=== PATIENT | male | born 1990 | race Caucasian/White ===

== ENCOUNTER 2023-02-09 21:24 | Outpatient (OUT) | payer OTHER, SELFPAY | END 2023-02-09 23:00 | disposition home or self-care (01) | LOC: SLEEP 21:24 | PROVIDERS: PCP Internal Medicine; Visit Provider Internal Medicine | DX: G47.33 Obstructive sleep apnea (adult) (pediatric) (principal); G47.11 Idiopathic hypersomnia with long sleep time ==

== ENCOUNTER 2023-03-16 21:19 | Outpatient (OUT) | payer OTHER, SELFPAY | END 2023-03-16 21:20 | disposition home or self-care (01) | LOC: SLEEP 21:19 | PROVIDERS: PCP Internal Medicine; Visit Provider Internal Medicine | DX: G47.33 Obstructive sleep apnea (adult) (pediatric) (principal); G47.11 Idiopathic hypersomnia with long sleep time | CPT/HCPCS: 95810 ==

== ENCOUNTER 2023-04-20 21:25 | Outpatient (OUT) | payer OTHER, SELFPAY | END 2023-04-20 21:26 | disposition home or self-care (01) | LOC: SLEEP 21:25 | PROVIDERS: PCP Internal Medicine; Visit Provider Internal Medicine | DX: G47.33 Obstructive sleep apnea (adult) (pediatric) (principal); G47.11 Idiopathic hypersomnia with long sleep time | CPT/HCPCS: 95811 ==

== ENCOUNTER 2024-02-24 11:17 | Outpatient (OUT) | payer OTHER, SELFPAY ==
--- OUTSIDE RECORDS SUMMARY | 2024-02-24 11:40 | XMS_ITS | CCD ---
Author Organization [facility] Inform ion Partnership [facility] Care Team Providers Care Bacteriologist Dairy Name Role Phone Slick Parker Unavailable Unavailable Slick Parker Unavailable Unavailable Slick Parker Unavailable Unavailable House, Salvatore Unavailable Unavailable Melany Parkers A Unavailable Unavailable Melany Parkers A Unavailable Unavailable Slick Parker A Unavailable Unavailable HouseSalvatore Unavailable Unavailable House Sr., Salvatore Abad Primary Care Provider [place] Sr., Salvatore Abad Primary Care Provider ANAHI CHAPMAN Admitting Unavailable ANAHI CHAPMAN Attending Unavailable DEFRANCE, DR ASHLEY Primary Care Unavailable ANAHI CHAPMAN Consulting Unavailable JOYCE ., DR RUELAS Admitting Unavailable JOYCE ., DR RUELAS Attending Unavailable MISC, DR BUTLER Primary Care Unavailable HELGA ., MR CARLSON Consulting Unavailable Wagner MOTOR EQUIPMENT CAPTAIN-Rosa THOMAS Primary Care Provide r DANIEL ALEJANDRO Attending Unavailable DANIEL ALEJANDRO Referring Unavailable House Sr., Salvatore BURCH Primary Care Provider ROSA EDWARD Attending Unavailable ROSA EDWARD Referring Unavailable ROSA EDWARD Primary Care Unavailable ROSA EDWARD Attending Unavailable ROSA EDWARD Referring Unavailable ROSA EDWARD Primary Care Unavailable TORY TORREZ Attending Unavailable Medications Current Medications Medication Drug Class(es) Dates Sig (Normalized) Sig (Original) [id number] 200 actuat albuterol 0.09 mg/actuat metered dose inhaler (2 sources) beta2-Adrenergic Agonist Start: 08-20-2022 take 2 puff(s) by inhalation every six hours as needed for wheezing albuterol (PROVENTIL HFA;VENTOLIN HFA) 90 mcg/actuation inhaler Indications: Dyspnea on exertion Inhale 2 puffs every 6 (six) hours as needed for wheezing. 18 g 11 08/20/2022 Active Start: 07-16-2021 take 3 mL by inhalat ion every six hours as needed for wheezing albuterol (PROVENTIL,VENTOLIN) 2.5 mg /3 mL (0.083 %) nebulizer solution Indications: Mild intermittent asthma without complication Inhale 3 mL (2.5 mg total) by nebulization every 6 (six) hours as needed for wheezing. 75 mL 12 07/16/2021 Active allopurinol 100 mg oral tablet (1 source) Xanthine Oxidase Inhibitor Start: 03-23-2023 take 2 tablets by mouth once daily in the morning allopurinoL (ZYLOPRIM) 100 mg tablet take 2 tablets by mouth every morning 180 tablet 1 03/23/2023 Active amLODIPine 10 mg oral tablet (5 sources) Dihydropyridine Calcium Channel Rosibel Start: 04-07-2023 take 1 tablet by mouth in the morning amLODIPine (NORVASC) 10 mg tablet Take 1 tablet (10 mg total) by mouth in the morning. 90 tablet 1 04/07/2023 Active Comment on above: Take 10 mg by mouth once daily. bisacodyl 5 mg delayed release oral tablet (4 sources) Stimulant Laxative Start: 09-16-2021 End: 09-16-2021 Bisacodyl (DULCOLAX) 5 mg tab Use as directed for Miralax / Gatorade Bowel Prep Kit 4 tablet 0 09/16/2021 09/16/2021 Discontinued Start: 08-06-2021 End: 09-13-2021 Bisacodyl (DULCOLAX) 5 mg ta b Use as directed for Miralax / Gatorade Bowel Prep Kit 4 tablet 0 08/06/2021 09/13/2021 Discontinued Comment on above: Use as directed for Miralax / Gatorade Bowel Prep Kit 60 actuat budesonide 0.16 mg/actuat / formoterol fumarate 0.0045 mg/actuat metered dose inhaler (1 source) Corticosteroid, beta2-Adrenergic Agonist Start: 08-06-19 take 2 puff(s) by mouth twice daily SYMBICORT 160-4.5 mcg/actuation inhaler Indications: Dyspnea on exertion , Mild intermittent asthma without complication inhale 2 puffs by mouth twice a day 10.2 g 6 08/05/2022 Active clonazePAM 0.5 mg oral tablet (1 source) Benzodiazepine clonazePAM (KlonoPIN) 0.5 mg tablet Oral for 15 Days 0 Active dicyclomine hydrochloride 20 mg oral tablet (3 sources) Anticholinergic Start: 01-29-20 22 take 1 tablet by mouth twice daily dicyclomine (BENTYL) 20 mg tablet Take 1 tablet by mouth twice daily. 200 tablet 5 01/28/2022 Active Start: 09-19-2021 End: 01-26-2022 take 1 tablet by mouth twice daily dicyclomine (BENTYL) 20 mg tablet Take 1 tablet by mouth twice daily. 200 tablet 5 09/19/2021 01/26/2022 Discontinued Comment on above: Take 1 tablet by amber th twice daily. hydrOXYzine pamoate 25 mg oral capsule (1 source) Antihistamine Start: 06-12-19 23 take 1 capsule by mouth three times daily as needed hydrOXYzine (VISTARIL) 25 mg capsule Take 1 capsule (25 mg total) by mouth 3 (three) times a day as needed. 0 06/12/2022 Active inhalational spacing device (AEROCHAMBER MV) spacer (1 source) Start: 08-16-19 inhalational spacing device (AEROCHAMBER MV) spacer Use with inhaler 1 each 0 2020 Active lithium carbonate 300 mg oral capsule (1 source) take 1 capsule by mouth twice daily lithium carbonate 300 mg capsule take 1 capsule by mouth twice a day 0 Active losartan potassium 50 mg oral tablet (5 sources) Angiotensin 2 Receptor Rosibel Start: 04-13-20 23 take 1 tablet by mouth once daily in the morning losartan (COZAAR) 50 mg tablet take 1 tablet by mouth every morning 90 tablet 1 04/13/2023 Active Comment on above: Take 50 mg by mouth once daily. methotrexate 2.5 mg oral tablet (1 source) Folate Analog Metabolic Inhibitor take 4 tablets by mouth every week methotrexate 2.5 mg chemo tablet take 4 tablets by mouth every week EXACTLY DIRECTED. FOLLOW DIRECTIONS CAREFULLY 0 Active nystatin 100 unt/mg topical powder (1 source) Polyene Antifungal Start: 06-12-19 nystatin (MYCOSTATIN) powder Apply 1 Application topically in the morning and 1 Application before bedtime. 15 g 1 06/12/2023 Active OLANZapine 10 mg oral tablet (1 source) Atypical Antipsychotic take 1 tablet by mouth at bedtime OLANZapine (ZyPREXA) 10 mg tablet take 1 tablet by mouth at bedtime 0 Active omeprazole 40 mg delayed release oral capsule (6 sources) Proton Pump Inhibitor Start: 11-20-19 End: 08-21-19 24 take 1 capsule by mouth once daily in the morning omeprazole (PriLOSEC) 40 mg capsule Indications: Mild intermittent asthma without complication take 1 capsule by mouth every morning 30 capsule 0 08/21/2023 Active Comment on above: Take 40 mg by mouth once daily. OXcarbazepine 300 mg oral tablet (1 source) Anti-epileptic Agent Start: 02-02-20 take 1 tablet by mouth in the morning, then take 1 tablet by mouth at bedtime OXcarbazepine (TRILEPTAL) 300 mg tablet Take 1 tablet (300 mg total) by mouth in the morning and 1 tablet (300 mg total) before bedtime. 0 02/01/2022 Active polyethylene glycol 3350 37200 mg powder for oral solution (4 sources) Osmotic Laxative Start: 09-17-19 End: 09-17-19 polyethylene glycol 3350 (MIRALAX, GLYCOLAX) 17 gram/dose powder Use as directed for Miralax / Gatorade Bowel Prep Kit 238 g 0 09/16/2021 09/16/2021 Discontinued Start: 08-06-2021 End: 09-13-2021 polyethylene glycol 3350 (AL RALAX, GLYCOLAX) 17 gram/dose powder Use as directed for Miralax / Gatorade Bowel Prep Kit 238 g 0 08/06/2021 09/13/2021 Discontinued Comment on above: Use as directed for Miralax / Gatorade Bowel Prep Kit 60 actuat tiotropium 0.37601 mg/actuat inhalation spray (1 source) Anticholinergic Start: 023 take 1.25 ug by inhalation once daily tiotropium bromide (SPIRIVA RESPIMAT) 1.25 mcg/actuation mist 2 puffs Inhalation Once a day 0 01/22/2023 Active traZODone hydrochloride 50 mg oral tablet (1 source) Serotonin Reuptake Inhibitor Start: 022 take 1 tablet by mouth once daily traZODone (DESYREL) 50 mg tablet Take 1 tablet (50 mg total) by mouth nightly. 0 02/01/2022 Active ziprasidone 40 mg oral capsule (1 source) Atypical Antipsychotic Start: 023 take 1 capsule by mouth in the morning, then take 1 capsule by mouth at mealtime ziprasidone (GEODON) 40 mg capsule Take 1 capsule (40 mg total) by mouth in the morning and 1 capsule (40 mg total) in the evening. Take with meals. 0 06/13/2022 Active Completed/Discontinued Medications Medication Drug Class(es) Dates Sig (Normalized) Sig (Original) Gatorade Sports Drink (3 sources) Start: 08-06-2021 End: 09-16-2021 Gatorade Sports Drink Use as directed for Miralax / Gatorade Bowel Prep Kit 0 08/06/2021 09/16/2021 Discontinued Start: 08-06-2021 Gatorade Sport s Drink Use as directed for Miralax / Gatorade Bowel Prep Kit 0 08/06/2021 Active Comment on above: Use as directed for Miralax / Gatorade Bowel Prep Kit Problems Active Problems Problem Classification Problem Date Documented Date Episodic/Chronic Administrative/social admission (1 source) Patient encounter status; Translations: [Other specified counseling] Episodic Asthma (2 sources) Mild intermittent asthma; Translations: [Mild intermittent asthma, uncomplicated] Onset: 02-16-2023 08-21-2023 Chronic Essential hypertension (2 sources) Essential (primary) hypertension; Translations: [Essential hypertension] Onset: 09-02-2022 02-16-2023 Chronic Gout and other crystal arthropathies (1 source) Gout, unspecified; Translations: [GOUT UNSPECIFIED] Onset: 09-02-2022 Chronic Mood disorders (1 source) Mixed bipolar affective disorder, moderate; Translations: [Bipolar disorder, current episode mixed, moderate] Onset: 07-30-2022 02-16-2023 Chronic Noninfectious gastroenteritis (2 sources) Idiopathic colitis; Translations: [Noninfective gastroenteritis and colitis, unspecified] Episodic Other aftercare (1 source) Other fpc (current) drug therapy; Translations: [OTH FIELD MECHANICAL 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 TESTER CURRENT DRUG THERAPY] Onset: 09-02-2022 Episodic Other connective tissue disease (3 sources) Pain in left toe(s); Translations: [PAIN IN LEFT TOES] Onset: 09-01-2022 Episodic Other lower respiratory disease (1 source) Snoring; Translations: [Snoring] Episodic Other lower respiratory disease (1 source) Cough Onset: 01-19-2024 Episodic Other non-traumatic joint disorders (4 sources) Pain in right ankle and joints of right foot; Translations: [PAIN IN RIGHT ANKLE] Onset: 05-15-2022 Episodic Other non-traumatic joint disorders (1 source) Ankle pain Onset: 01-19-2024 Episodic Other nutritional; endocrine; and metabolic disorders (1 source) Morbid obesity; Translations: [Morbid (severe) obesity due to excess calories] Chronic Other nutritional; endocrine; and metabolic disorders (2 sources) Body mass index 40+ - severely obese; Translations: [Morbid (severe) obesity due to excess calories] Onset: 02-16-2023 Chronic Other upper respiratory infections (1 source) Acute maxillary sinusitis, unspecified; Translations: [Acute maxillary sinusitis, unspecified] Onset: 01-19-2024 Episodic Residual codes; unclassified (1 source) At risk of apnea; Translations: [Other specified personal risk factors, not elsewhere classified] Episodic Rheumatoid arthritis and related disease (3 sources) Rheumatoid arthritis of multiple joints; Translations: [Rheumatoid arthritis with rheumatoid factor of multiple sites without organ or systems involvement] Onset: 08-04-2022 02-16-2023 Chronic Substance-related disorders (1 source) Nicotine dependence, cigarettes, uncomplicated; Translations: [NICOTINE DEPEND CIGARETTES UNCOMP] Onset: 06-17-2022 Chronic Unclassified (1 source) Rash Onset: 06-12-2023 Past or Other Problems Problem Classification Problem Date Documented Da te Episodic/Chronic Diabetes mellitus without complication (1 source) Impaired fasting glucose; Translations: [Impaired fasting glucose] Onset: 06-12-2023 Episodic Mood disorders (1 source) Mood disorders Onset: 2022 2022 Mycoses (1 source) Other sites of candidiasis; Translations: [Other sites of candidiasis] Onset: 06-12-2023 Episodic Unclassified (1 source) Onset: 06-12-2023 06-12-2023 Results Test Name Value Interpretation Reference Range Facility 36 2024 36 Left message informi ng patient to call office and schedule a follow up appointment. [facility] [id number] 36 LVM for patient to c all back and reschedule [facility] 09-10-2023 36 It's okay to resched ulnola, he forgot to get labs completed and then went to a [facility] location without a hard copy of lab orders. I have mailed the lab orders to the patient to have completed. [facility] 36 Patient has no showe d three out of seven appointments since being established. No showed 10/13/22 w/Ding, 06/30/23 w/Ding, and 09/10/23 w/Aya. Okay to R/S or dismissed? [facility] Follow-Upon 03-30-2023 Follow-Up [id number] Cody Goodson 1990 M Date Provider Department Center 03/30/2023 TORY [facility] No family history on file Level of Service:35749 IA OFFICE/OUTPATIENT ESTABLISHED MOD MDM 30-39 MIN Reason for Visit and Comments: Follow-up [173983] [facility] 03-23-2023 36 LM asking patient to call and schedule 3-4 month follow up appointment. [facility] ANES POSTPROC EVALon 022 ANES POSTPROC EVAL HNO ID: [id number] Author: Jose Gillespie MD Service: Anesthesiology Author Type: Anesthesiologist Type: Anesthesia Postprocedure Evaluation Filed: 09/16/2021 10:50 AM Note Text: POST ANESTHESIA EVALUATION NOTE : 1990 Procedure Summary Date: 09/16/21 Room / Location: [facility] Anesthesia Start: 1010 Anesthesia Stop: 1035 Procedure: COLONOSCOPY SCREENING Diagnosis: Idiopathic colitis (Chronic diarrhea) Scheduled Providers: Adolfo Matias MD Responsible Provider: Jose Gillespie MD Anesthesia Type: MAC ASA Status: 4 Anesthesia Type: MAC Last Vitals Vitals Value Taken Time BP 133/76 09/16/21 1045 Temp 36.7 ?C (98.1 ?F) 09/16/21 1035 Pulse 99 09/16/21 1035 Resp 22 09/16/21 1035 SpO2 96 % 09/16/21 1049 Vitals shown include unvalidated device data. [facility] AN POST OP NOTE Anesthesia Observations No Documentation SIGNATURE: Jose Gillespie MD PATIENT NAME: Cody Goodson DATE: September 16, 2021 TIME: 10:50 AM CSN: [id number] Normal [facility] ANES PRE-OPon 09-16-2021 ANES PRE-OP HNO ID: [id number] Author: Jose Gillespie MD Service: Anesthesiology Author Type: Anesthesiologist Type: Anesthesia Preprocedure Evaluation Filed: 09/16/2021 9:02 AM Note Text: ANESTHESIOLOGY DAY OF SURGERY NOTE : 1990 Procedure Information Date/Time: 09/16/21 1000 Scheduled providers: Adolfo Matias MD Procedure: COLONOSCOPY SCREENING Location: [facility] Estimated body mass index is 53.56 kg/m? as calculated from the following: Height as of this encounter: 193 cm (6' 4 ). Weight as of this encounter: 199.6 kg (440 lb). Most recent hematocrit and potassium results: No results found for this basename: HCT,HEMATOCRIT,K,POTASSIUM Relevant Problems No relevant active problems I - PHYSICAL EVALUATION AIRWAY Patient intubated: No. Tracheostomy tube not present Mallampati: IV. TM distance: >3 FB. Neck ROM: limited flexion and extension. Mouth opening: adequate. Short neck: yes. Thick neck: yes DENTAL Dental findings: teeth intact. Additional exam findings: no II - ANESTHESIA PLAN ASA Score: 4 Anesthetic Plan: MAC The patient is not a current smoker. NPO Status: adequate Beta Rosibel Administration of chronic beta rosibel medication planned. Monitoring plan: standard ASA. Postoperative analgesic plan: per surgical service. Informed Consent Anesthetic risks, benefits, alternatives, personnel and consent discussed: yes. Patient / Responsible Alliance Party agrees to proceed: yes Patient / Surrogate agrees to blood products: Yes DNR status not reviewed with patient and/or family prior to surgery. Significant changes in the patient condition since the History and Physical, not otherwise documented in primary service progress note: no. Potential Anesthesia issues that may suggest increased risk of complications or contraindication to planned procedure: none. Vitals Value Taken Time BP 130/75 09/16/21 08 Pulse 88 09/16/21 0852 Resp 20 09/16/21 08 Temp 37.1 ?C (98.8 ?F) 09/16/21 08 SpO2 97 % 09/16/21 08 Outpatient Medications as of 09/16/2021 Medication Sig - losartan (COZAAR) 50 mg tablet Take 50 mg by mouth once daily. - amLODIPine (NORVASC) 10 mg tablet Take 10 mg by mouth once daily. - omeprazole (PRILOSEC) 40 mg capsule Take 40 mg by mouth once daily. - polyethylene glycol 3350 (MIRALAX, GLYCOLAX) 17 gram/dose powder Use as directed for Miralax / Gatorade Bowel Prep Kit - Bisacodyl (DULCOLAX) 5 mg tab Use as directed for Miralax / Gatorade Bowel Prep Kit - Gatorade Sports Drink Use as directed for Miralax / Gatorade Bowel Prep Kit No current facility-administered medications on file as of 09/16/2021. I have interviewed and examined the patient. I have reviewed the medical record and/or the pre-anesthesia evaluation, pertinent labs, and test results. This contains updated information obtained within 48 hours of Surgery/Procedure. SIGNATURE: Jose Gillespie MD PATIENT NAME: Cody Goodson DATE: September 16, 2021 TIME: 9:01 AM CSN: [id number] Normal [facility] COLONOSCOPY SCREENINGon 08-24 [facility] HISTORY PHYSICALon HISTORY PHYSICAL HNO ID: [id number] Author: Adolfo Matias MD Service: Gastroenterology Author Type: Physician Type: HANDP Filed: 09/16/2021 10:06 AM Note Text: COMPREHENSIVE DAY OF SURGERY SURGICAL SERVICES HANDP SERVICE DATE: 09/16/2021 SERVICE TIME: 10:01 AM PRIMARY CARE PHYSICIAN: Salvatore Reveles Sr, MD Subjective CHIEF COMPLAINT: Chronic diarrhea HISTORY OF PRESENT ILLNESS: Mr. Goodson is a 31 year old male who presents for colonoscopy. No prior history of colonoscopy Paternal Uncle w/ Crohn's disease Chronic diarrhea X 6 months Loose stools w/o blood No weight loss Nocturnal awakening for bowel movements No NSAIDs use PAST MEDICAL HISTORY Diagnosis Date - COVID-19 05/2020 - HTN (hypertension) - Morbid obesity (HCC) PAST SURGICAL HISTORY Procedure Laterality Date - CYST EXCISION left heel FAMILY HISTORY Problem Relation Age of Onset - Crohn's Disease Paternal Uncle - Colon Cancer No Family History - Colon Polyps No Family History - Celiac Disease No Family History - Ulcerative Colitis No Family History Social History Tobacco Use - Smoking status: Never Smoker - Smokeless tobacco: Current User Types: Snuff Vaping Use - Vaping Use: Not on file Substance Use Topics - Alcohol use: Not Currently - Drug use: Yes Types: Marijuana Comment: occassional use (Not in a hospital admission) No current facility-administered medications for this encounter. ALLERGIES Not on File REVIEW OF SYSTEMS: RESPIRATORY: COPD; not oxygen requiring CARDIOVASCULAR: Negative for chest pain, leg swelling, CHF or palpitations GENERAL: No weight loss, malaise or fevers GI: See HPI Objective PHYSICAL EXAM: BP 130/75 Pulse 88 Temp (Src) 98.8 (Temporal) Resp 20 Ht 6' 4 (1.93m) Wt 440 lb (199.6kg) SpO2 97% BMI 53.58 kg/(m2). O2 Therapy: Room Air Physical Exam Performed LUNGS: Lungs clear to auscultation, Good diaphragmatic excursion CARDIAC: distant heart sounds GENERAL: Alert, no distress, cooperative, Morbidly Obese SKIN: multiple tattoos EYES: glasses ABDOMEN: Abdomen soft, non-tender, BS normal, No masses or organomegaly NEURO: alert and oriented X 3 DATA: Diagnostic tests reviewed for today's visit: Most recent labs Assessment/Plan 1. Chronic diarrhea w/o alarm features 2. FHx Crohns disease (paternal uncle) 3. History of COVID 4. Morbid obesity Colonoscopy with biopsies Discussed with patient/patient field representatives director the indications, alternatives, benefits and risks of procedure. Some of the possible risks include bleeding, infection, drug reaction, perforation, missed lesions, cardiopulmonary arrest or even , were also reviewed with patient/patient field representatives director. SIGNATURE: Adolfo Matias MD PATIENT NAME: Cody Goodson DATE: September 16, 2021 TIME: 10:01 AM [facility] SURGICAL PATHOLOGYon 09-16-2 022 CASE REPORT [facility] Comment on above: Order Comment: Specimen Type: TISSUE SPE CIMEN Ordering Facility: [facility] Address: [address] [place] [address] Result Comment: Surg ica Pathology Report Case: [id number] Authorizing Provider: Adolfo Matias MD Collected: 09/16/2021 10:21 AM Ordering Location: [facility] Received: 09/16/2021 11:58 AM Surgical Services Pathologist: Farrah Serrano MD Specimen: COLON BIOPSY, Random Performed By: #### S #### [facility] CLIA [id number] [address] [place] [address] FINAL DIAGNOSIS Normal [facility] Comment on above: Order Comment: Specimen Type: TISSUE SPE CIMEN Ordering Facility: [facility] Address: [address] [place] [address] Result Comment: Addi herman, perfecto, biopsy: - Colonic mucosa with patchy mild hyperplastic epithelial changes. Performed By: #### S #### [facility] CLIA [id number] [address] [place] [address] FINAL PERFORMING LAB Normal [facility] Comment on above: Order Comment: Specimen Type: TISSUE SPE CIMEN Ordering Facility: [facility] Address: [address] [place] [address] Result Comment: Diag nostic interpretation performed at [facility], [address] [place] [address] CLIA# [id number] Recruiting Assistant: Richie Duran M.D. Performed By: #### S #### [facility] CLIA [id number] [address] [place] [address] GROSS DESCRIPTION Normal [facility] Comment on above: Order Comment: Specimen Type: TISSUE SPE CIMEN Ordering Facility: [facility] Address: [address] [place] [address] Result Comment: Stephane. Lexie KLINEGISSELLE BIOPSY. Received in formalin are multiple pieces of jacinto, soft tissue aggregating to 2.0 x 0.6 x 0.2 cm. Totally submitted in two cassettes. CL September 16, 2021 3:18 PM Gross examination performed at [facility], [address] [place], [place] [address]e., [place] [address] Performed By: #### S #### [facility] CLIA [id number] [address] [facility] [address] [id number] [id number] [facility] CODY GOODSON ([id number]) 1990 M Date Time Provider Department 09/13/21 CARMELO HERNÁNDEZ [facility] During your visit today, we recorded the following information about you: HARIKA Hernandez 09/13/2021 2:07 PM Signed Which Attempt: X 2nd Call Status: Completed X Left Voice Message Surgery Location: [place] Arrival Time:0845 Note: Left detailed message on voice mail. Allergies As of Date: 09/13/2021 (Not on File) Date Reviewed: Never Reviewed Reason for Visit: Appointment [186] Prescriptions as of 09/13/2021 - polyethylene glycol 3350 (MIRALAX, GLYCOLAX) 17 gram/dose powder Use as directed for Miralax / Gatorade Bowel Prep Kit - Gatorade Sports Drink Use as directed for Miralax / Gatorade Bowel Prep Kit - Bisacodyl (DULCOLAX) 5 mg tab Use as directed for Miralax / Gatorade Bowel Prep Kit Problem List As Of Date: 09/13/2021 (None) Encounter Status:Closed by CARMELO HERNÁNDEZ on 09/13/21 [facility] 08-07-2021 [facility] SBCODY ([id number]) 1990 M Date Time Provider Department 08/07/21 MANUEL RODRÍGUEZ [facility] During your visit today, we recorded the following information about you: Berenice Xu [place] [facility] 08/07/2021 12:02 PM Signed Left message on vm letting pt know its cancelled and to call us back Brenna Oates Ma 08/09/2021 10:00 AM Signed Cody called yesterday at 4:44 pm and left a voicemail message requesting a call back. I called Cody back and left a message on his voicemail for him to return my call. Brenna Oates Ma 08/09/2021 10:10 AM Addendum I spoke with Cody, rescheduled his colonoscopy to 09/16/[address] [place] [address] Matias. Brenna Oates Ma Allergies As of Date: 08/07/2021 (Not on File) Date Reviewed: Never Reviewed Reason for Visit: anesthesia review [Other] Prescriptions as of 08/09/2021 - polyethylene glycol 3350 (MIRALAX, GLYCOLAX) 17 gram/dose powder Use as directed for Miralax / Gatorade Bowel Prep Kit - Gatorade Sports Drink Use as directed for Miralax / Gatorade Bowel Prep Kit - Bisacodyl (DULCOLAX) 5 mg tab Use as directed for Miralax / Gatorade Bowel Prep Kit Problem List As Of Date: 08/07/2021 (None) Letter Text Encounter Status:Closed by MANUEL RODRÍGUEZ on 08/07/21 Normal [facility] Coding Summary.on 05-13-2017 Coding Summary. CODING DATE: 017 FINAL [facility] STATUS: Home (Routine DC) PAYOR: Commercial Insurance APC DESCRIPTION 5073 Level 3 Excision/ Biopsy/ Incision and Drainage ADMIT DX: REASON FOR VISIT DX: M79.89 Other specified soft tissue disorders FINAL DX: PRINCIPAL: D17.24 Benign lipomatous neoplasm of skin and subcutaneous tissue of left leg SECONDARY: I10 Essential (primary) hypertension F17.220 Nicotine dependence, chewing tobacco, uncomplicated PYMT PROC APC STAT DESCRIPTION DOCTOR NAME DATE [id number] J1 Excision, tumor, soft Slick Parker DPM 05/06/2017 tissue of foot or toe, subfascial (eg, intramuscular); 1.5 cm or greater LT Left side (used to identify procedures performed on the left side of the body) 43800 Anesthesia for Slick Parker DPM 05/06/2017 procedures on nerves, muscles, tendons, and fascia of lower leg, ankle, and foot; not otherwise specified NOTE: The code number assigned matches the documented diagnosis and / or procedure in the patient's chart. However, the narrative phrase printed from the coding software may appear abbreviated, or result in slightly different terminology. Coded By: Valeria Ramirez Date Saved: 05/13/2017 02:15 pm [facility] XR Ankle 2 Views Lefton 04-24 XR Ankle 2 Views Left Exam Date/Time:05/06/2017 12:27 ESTReason for Exam:Post OpReportIMPRESSION: ESSENTIALLY NEGATIVE EXAM. X-RAY: RIGHT ANKLE, VIEWSCLINICAL HISTORY: post op in [facility] - excision of tumor/fibroma to posterior medialachillesCOMPARISONS: None available.FINDINGS: No fracture, dislocation or osseous destruction is seen. The anklemortise is well maintained. The soft tissues are unremarkable. No evidence foreignbody. FINAL REPORT Dictated: 05/08/2017 4:51 pm Holley Garcia MD Signed (Electronic Signature): 05/08/2017 4:51 pm Signed by: Holley Garcia MD Transcribed by: CHLOE Technologist: FAUSTINA [facility] Main OR Intraoperative Recor don 05-07-2017 Main OR Intraoperative Record IntraOp Document Type FT Summary Primary Physician: Slick Parker DPM Finalized Date/Time: 05/07/17 10:09:19 Pt. Name: CODY GOODSON/Sex: 1990 Male Med Rec #: [id number] Physician: Slick Parker DPM Financial #: [id number] Pt. Type: A Room/Bed: AS/ Admit/Disch: 05/06/17 06:52:00 - 05/06/17 13:15:00 Institution: Case Times FT Entry 1 Patient Times In Room 05/06/17 09:23:00 Out Room 05/06/17 11:19:00 Procedure Times Start 05/06/17 09:46:00 Stop 05/06/17 11:04:00 Anesthesia Times Start 05/06/17 09:23:00 Stop 05/06/17 11:19:00 Last Modified By: Thalia Queen CST 05/06/17 11:23:16 General Comments: 05/07/2017 Chart opened to review and send charges Grzegorz client experience administrator Case Attendance FT Entry 1 Entry 2 Entry 3 Case Attendee Keith PENNINGTON, Lindsay Parker DPM, Slick Matos FORMATION TESTING OPERATOR/SABecky Role Performed Anesthesiologist Surgeon - Primary FORMATION TESTING OPERATOR/SA [employer] Time In 05/06/17 09:23:00 05/06/17 09:25:00 05/06/17 09:23:00 Time Out 05/06/17 11:19:00 05/06/17 11:19:00 05/06/17 11:19:00 Procedure FOOT EXCISION OF SOFT FOOT EXCISION OF SOFT FOOT EXCISION OF SOFT TISSUE MASS(Left) TISSUE MASS(Left) TISSUE MASS(Left) Comments DR AGUERO SUPERVISING - out of room from [id number] dr gerson bernabe Last Modified By: Chrissy RN, Gerardo Lowe RN, Gerardo Cortés RN 05/06/17 11:23:19 05/06/17 11:23:19 05/06/17 11:23:19 Entry 4 Entry 5 Entry 6 Case Attendee Chrissy AVILES, Gerardo Zamora RN, Ella Pace CST Role Performed Occupational Therapy Department Chair - Primary Occupational Therapy Department Chair - Primary Scrub - Primary Time In 05/06/17 09:23:00 05/06/17 09:23:00 05/06/17 09:23:00 Time Out 05/06/17 11:19:00 05/06/17 11:19:00 05/06/17 11:19:00 Procedure FOOT EXCISION OF SOFT FOOT EXCISION OF SOFT FOOT EXCISION OF SOFT TISSUE MASS(Left) TISSUE MASS(Left) TISSUE MASS(Left) Comments out of room from [id number] Last Modified By: Chrissy AVILES, Gerardo Lowe RN, Gerardo Lowe RN, Gerardo Recio 05/06/17 11:23:19 05/06/17 11:23:19 05/06/17 11:23:19 Entry 7 Case Attendee Jose RN, CNOR, CRNFA, ONC, Sheryl Role Performed Occupational Therapy Department Chair - Relief Time In 05/06/17 09:23:00 Time Out 05/06/17 10:13:00 Procedure FOOT EXCISION OF SOFT TISSUE MASS(Left) Comments Last Modified By: Chrissy AVILES, Gerardo Recio 05/06/17 11:23:19 Perioperative Protocols FT Pre-Care Text: Implements protective measures prior to operative or invasive procedure, confirms identity before the operative or invasive procedure, verifies operative procedure, surgical site, and laterality Entry 1 Procedure(s) FOOT EXCISION OF SOFT Patient Identity Birthday, ID Band TISSUE MASS(Left) Verified (select at Check, Patient least 2): Participation Consents / H and P Anesthesia Consent, Operative Site Present Verified HandP, Surgery/Procedure Marking Verified Consent Surgical Site Yes Laterality Verified Yes Verified Procedure Verified Yes Correct Patient Yes Position Verified Availability Equipment, Medication Prep Dry Yes Verified (If Applicable) PreOp Antibiotic Yes Time Out Lindsay Lee C, Given Participants Slick Parker DPM, Sharp FORMATION TESTING OPERATOR/SA, Chrissy Pena RN, Noah Krishnamurthy RN, Edison Frost CST, Ella Time Out Complete 05/06/17 09:40:00 Outcomes Met? Yes Last Modified By: Emily Zamora RN 05/06/17 09:42:57 Post-Care Text: The patient is free from signs and symptoms of injury caused by extraneous objects Allergy Information FT Pre-Care Text: Verifies allergies Entry 1 Allergies Reviewed? Yes Allergies Reviewed Self/Patient With Outcomes Met? Yes Last Modified By: Emily Zamora RN 05/06/17 09:45:55 Post-Care Text: The patient received appropriate medication(s) safely administered during the perioperative period Surgical Procedures FT Entry 1 Procedure Description Procedure FOOT EXCISION OF SOFT Modifiers Left TISSUE MASS Surgeon Description EXCISION OF TUMOR SOFT TISSUE OF LEFT FOOT WITH FROZEN SECTION Primary Procedure Yes Primary Surgeon Slick Parker DPM Start 05/06/17 09:46:00 Stop 05/06/17 11:04:00 Anesthesia Type General Surgical Service Podiatry Wound Class 1 - Clean Last Modified By: Gerardo Lowe RN 05/06/17 11:23:22 General Case Data FT Pre-Care Text: Classifies surgical wound, implements aseptic technique, initiates traffic control Entry 1 Case Information OR OR 4 FT Case Level Level 4 Wound Class 1 - Clean Specialty Podiatry ASA Class 2 Preop Diagnosis SOFT TISSUE MASS LEFT Postop Same As Preop Yes ACHILLES Postop Diagnosis SOFT TISSUE MASS LEFT Outcomes Met? Yes ACHILLES Last Modified By: Emily Zamora RN 05/06/17 09:46:30 Post-Care Text: The patient is free from signs and symptoms of infection Skin Assessment (Pre Procedure) FT Pre-Care Text: Implements protective measures to prevent skin/ tissue injury due to thermal or mechanical sources Evaluates for signs and symptoms of physical injury to skin and tissue Entry 1 Skin Integrity Other/See Comments Skin Abnormality Yes Abnormality Location multiple small scabs on Outcomes Met? Yes bilateral lower extremities Last Modified By: Emily Zamora RN 05/06/17 09:47:00 Post-Care Text: The patient is free from signs and symptoms of injury caused by extraneous objects Patient Positioning FT Pre-Care Text: Identifies physical alterations that require additional precautions for procedure-specific positioning, verifies presence of prosthetics or corrective devices, positions the patient, evaluates the patient for signs and symptoms of injury as a result of positioning Entry 1 Procedure FOOT EXCISION OF SOFT Body Position Supine TISSUE MASS(Left) Feet Uncrossed? Yes Left Arm Position Extended on Padded Arm Board Right Arm Position Extended on Padded Arm Left Leg Position Extended Board Right Leg Position Extended Positioning Device Safety Strap, Pillow Under Head Large Press Points Checked Yes By Gerardo Lowe RN, Lindsay Lee, Emily Zamora RN Outcomes Met? Yes Last Modified By: Emily Zamora RN 05/06/17 09:47:16 Post-Care Text: The patient is free from signs and symptoms of injury related to positioning Patient Care Devices FT Pre-Care Text: Implements protective measures to prevent skin/ tissue injury due to thermal or mechanical sources Entry 1 Entry 2 Entry 3 Equipment Type CAUTERY UNIT[F] MISTRAL FORCED AIR MONITOR CHARGE SURGERY WARMING SYSTEM UNIT[F] [F] Equipment Number BOOM ROOM 4 M5 Equipment Setting Outcomes Met? Yes Yes Yes Last Modified By: Emily Zamora RN, RN, Emily A Coy RN, Emily A 05/06/17 08:19:27 05/06/17 08:19:27 05/06/17 08:19:27 Entry 4 Equipment Type TOURNIQUET MIKE [F] Equipment Number D Equipment Setting Outcomes Met? Yes Last Modified By: Emily Zamora RN 05/06/17 08:19:27 Post-Care Text: The patient is free from signs and symptoms of injury caused by extraneous objects Transport To OR FT Pre-Care Text: Transports according to individual needs. Evaluates for signs and symptoms of skin and tissue injury as a result of transfer or transport Entry 1 Via Cart By Emily Zamora RN Safety Precautions Side Rails Up Outcomes Met? Yes Last Modified By: Emily Zamora RN 05/06/17 09:47:23 Post-Care Text: The patient is free from signs and symptoms of injury related to transfer/transport Cautery FT Pre-Care Text: Implements protective measures to prevent injury due to electrical sources, and evaluates for signs and symptoms of electrical injury Entry 1 ESU Identification Equipment Number boom room 4 ESU Settings Cut 25 Coag 25 ESU Grounding Pad Site Right Thigh Hair Removal Pad No Site Pre Pad Site Clear and Intact Post Pad Site Clear and Intact Condition Condition Grounding Pad Emily Zamora RN Placed By Outcomes Met? Yes Last Modified By: Emily Zamora RN 05/06/17 09:47:39 Post-Care Text: The patient if free from signs and symptoms of electrical injury Counts Verification FT Pre-Care Text: Performs required counts Entry 1 Entry 2 Procedure(s) FOOT EXCISION OF SOFT FOOT EXCISION OF SOFT TISSUE MASS(Left) TISSUE MASS(Left) Type Initial Final Items Sponges, Sharps Sponges, Sharps Status Correct Correct Time By Emily Zamora RN, George Coy RN, Emily A, George CST, Stephanie CST, Stephanie Outcomes Met? Yes Yes Last Modified By: Emily Zamora RN, RN, Emily A 05/06/17 10:40:49 05/06/17 10:40:49 Post-Care Text: The patient is free from signs and symptoms of injury caused by extraneous objects Skin Prep FT Pre-Care Text: Performs skin preparations Entry 1 Procedure FOOT EXCISION OF SOFT Prep Area left entire foot and TISSUE MASS(Left) leg to mid calf Prep Agents Chloraprep/Dry Prior to Draping Hair Removal Methods Not Indicated By Emily Zamora RN Outcomes Met? Yes Last Modified By: Emily Zamora RN 05/06/17 09:50:26 Post-Care Text: The patient is free from signs and symptoms of infection Departure From OR FT Pre-Care Text: Transports according to individual needs. Evaluates for signs and symptoms of skin and tissue injury as a result of transfer or transport. Entry 1 Via Cart Safety Precautions Side Rails Up PostOp Destination PACU Transported By Gerardo Lowe RN Patient Status Stable Skin. Condition Intact, [place], Warm, and Description unchanged from Dry, Other/See Comments previously Airway Maintenance Oxygen in Use? Yes Airway Device Simple Mask Flow Rate 8 L/min Outcomes Met? Yes Last Modified By: Emily Zamora RN 05/06/17 09:51:01 Post-Care Text: The patient is free from signs and symptoms of injury related to transfer/transport General Comments: report given to furniture finisherrn. Clint wasserman rn Dressing/Packing FT Pre-Care Text: Administers care to wound sites Entry 1 Type Dressing Site and Details xeroform, 4x4`s, cast padding, 4x30 splint and 4 inch fermin to left ankle Outcomes Met? Yes Last Modified By: Emily Zamora RN 05/06/17 10:45:45 Post-Care Text: The patient is free from signs and symptoms of infection Medication Administration FT Pre-Care Text: Verifies allergies, administers prescribed medications and solutions, administers prescribed antibiotic therapy and immunizing agents as ordered, evaluates response to medications Administers prescribed medications and solutions Entry 1 Outcomes Met? Yes Last Modified By: Emily Zamora RN 05/06/17 09:51:07 Post-Care Text: The patient received appropriate medication(s) safely administered during the perioperative period For Vega-Cache please see scanned medication reconcilliation form for medications used at the field during the procedure. Tourniquet FT Pre-Care Text: Implements protective measures to prevent skin/tissue injury due to mechanical sources Entry 1 Tourniquet Type TOURNIQUET CUFF [employer] Setting 350 mmHg BLUE 44 X 4 [[id number]][F] Equipment Number D Placement Left Upper Thigh Cuff Size 44 Padding Under Cuff Yes Applied Applied By Carlo SENIOR/Becky JONES Skin Assessment Unremarkable Before Inflation Skin Assessment Unremarkable After Inflation Tourniquet Times Inflated 05/06/17 09:44:00 Deflated 05/06/17 10:59:00 Total Time 75 minute(s) Outcomes Met? Yes Last Modified By: Emily Zamora RN 05/06/17 11:08:08 Post-Care Text: The patient is free from signs and symptoms of injury caused by extraneous objects Cultures and Specimens FT Pre-Care Text: Manages specimen handling and disposition Manages culture specimen collection Entry 1 Cultures Ordered No Specimens Ordered Yes Specimen Disposition Designated OR Area Frozen Section Times FS Pathology 05/06/17 09:56:00 FS Results Received 05/06/17 10:26:00 Notified Outcomes Met? Yes Last Modified By: Emily Zamora RN 05/06/17 10:27:14 Post-Care Text: The patient is free from signs and symptoms of injury caused by extraneous objects The patient is free from signs and symptoms of infection General Comments: specimen: soft tissue mass left achilles (frozen) and fibroma left schilles. Clint moore called from frozen lab with results and talked directly to dr. flor parker. Clint wasserman rn Temperature Control Entry 1 Temperature Control BLANKET MISTRAL AIR Quantity 1 Aid TORSO [[id number]][F] Fluid/Moseley Unit Mistral warming system Setting high/43 Body Site Upper anterior torso Last Modified By: Emily Zamora RN 05/06/17 09:51:29 Case Comments Finalized By: Thalia Queen CST Document Signatures Signed By: Gerardo Lowe RN 05/06/17 11:23 Thalia Queen CST 05/07/17 10:09 Normal [facility] Progress Note-Physicianon Progress Note-Physician Patient: CODY GOODSON Age: 26 years Sex: Male : 1990 Associated Diagnoses: None Author: Julio Aguero MD Preoperative Information Anesthesia history: Patient History: No personal or Family history of problems with anesthesia. Re-eval prior to induction: Inital eval reviewed: No significant interval change. Review of Systems Constitutional: Negative. Cardiovascular: Cardiovascular risk stratafacation reviewed, 1 FOS without difficulty, No chest pain. Respiratory: No SOB. Hematology/Lymphatics: Negative. Gastrointestinal: Negative. Musculoskeletal: Negative. Neurologic: Negative. Health Status Allergies: Allergic Reactions (Selected)No Known Allergies Current medications: (Selected) Inpatient MedicationsOrderedCefazolin 3 gram IVPB: 3 gram = 3 EA, IV Piggyback, PREOP, Routine, Start date 05/06/17 7:00:00 EST, 200 mL/hr, Infuse over 30 minute(s)Lactated Ringers IV Kristi 1000 mL 1,000 mL: 1,000 mL, IV, 150 mL/hr, Routine, Start date 05/06/17 7:00:00 EST, 6.7 hour(s), Total volume (mL): 1,000Norco 5/325 Tab: 1 tab(s), Tab, Oral, q4hr PRN Pain - Moderate for 5 day(s), Stop date 05/11/17 7:57:00 EST, Routine, Start date 05/06/17 7:58:00 ESTDocumented MedicationsDocumentedlisinopril 20 mg Tab: 20 mg = 1 tab(s), Oral, Dailynaproxen 250 mg oral tablet: 750 mg = 3 tab(s), Oral, q6hr, PRN as needed for pain, Pain Problem list: All ProblemsHypertension / SNOMED CT 8985948712 / ConfirmedSoft tissue mass / SNOMED CT 5926399816 / Confirmedleft achillesAsthma / SNOMED CT 991630715 / Confirmed Histories Past Medical History: No active or resolved past medical history items have been selected or recorded. Procedure history: No active procedure history items have been selected or recorded. Social History Social & Psychosocial BdiuyoNxrirhw76/06/2017 Type: Oral Comment: Patient chews tobacco every day. - 04/29/2017 09:03 - Thalia Mcdonald RN. Physical Examination Pain assessment: Self-reports no pain. Airway: Mallampati classification: II (soft palate, fauces, uvula visible). Distance: Adequate. Mouth: Adequate opening. Neck: Full range of motion. Respiratory: Respirations are non-labored. Cardiovascular: Regular rhythm. Neurologic: Alert, Oriented. Review / Management Results review: All Results 04/29/2017 08:51 EST WBC 6.5 E9/L RBC 5.3 E12/L Hgb 15.3 gm/dL Hct 45.1 % MCV 85.7 fL MCH 29.0 pg MCHC 33.9 gm/dL RDW 14.6 % HI Platelet 175.0 E9/L MPV 10.1 fL , No qualifying data available. Chest x-ray results mikayla For ExamPre OpPOWERSCRIBE REPORTIMPRESSION: NO ACTIVE PULMONARY DISEASE.COMMENT: PA and lateral views of the chest show a normal-sized heart andunremarkable bronchovascular markings. There are no pneumonic infiltrates or pleuraleffusion. The mediastinum and the bony structures are unremarkable.Signature Line FINAL REPORT Dictated: 04/29/2017 10:01 am Vinod Floyd M.D.Signed (Electronic Signature): 04/29/2017 10:06 amSigned by: Vinod Floyd M.D.Transcribed by: pedro Technologist: KAREN REPORTThis document has an imageResult type: XR Chest 2 ViewsResult date: April 29, 2017 09:40 ESTResult status: Auth (Verified)Result title: XR Chest 2 ViewsPerformed by: Vinod Floyd M.D. on April 29, 2017 10:01 ESTVerified by: Vinod Floyd M.D. on April 29, 2017 10:06 [facility] info: [id number], [facility], Outpatient, 04/29/2017 - 04/29/2017 ECG interpretation: SINUS RHYTHM. Plan [place] [employer] Anesthesiologists (ASA) physical status classification: Class II. Anesthetic Preoperative Plan Anesthesia: General. . Anesthetic plan, risks, benefits, and alternatives discussed with the patient and/or family. Patient verbalized understanding. Pt agrees with anesthetic plan and accepts all risks including but not limited to; Bleeding, infection, nerve injury, dental injury, eye injury, headache, low blood pressure, serious problems with the heart and lungs, allergic reactions, and .. Normal [facility] Comment on above: Result Comment: Electronically Signed By : Gerson GERBER, Julio\.br\Date and Time Signed: 05/07/17 15:35 EST Inpatient Patient Summaryon 05-06-2017 Thy[facility] stimulating [facility]SH[facility] InstructionsPERSON INFORMATION Name: CODY GOODSON [facility]#:[id number] PHYSICIANS Admitting Physician: Slick Parker DPMtenjatin Physician: Slick Parker DPM PCP: Salvatore Reveles DO PDischarge Diagnosis: Comment: PATIENT EDUCATION INFORMATIONInstructions:Keith - Post Operative Instructions (Custom) (Custom)Medication Leaflets:Follow up:MEDICATION LISTComment: Normal [facility] Main OR PACU I Recordon 04-24 Main OR PACU I Record PACU Phase I Document Type FT Summary Primary Physician: Slick Parker DPM Finalized Date/Time: 05/06/17 12:00:39 Pt. Name: CODY GOODSON /Sex: 1990 Male Med Rec #: [id number] Physician: Slick Parker DPM Financial #: [id number] Pt. Type: A Room/Bed: [facility]/ Admit/Disch: 05/06/17 06:52:46 - Institution: Case Times PACU I FT Pre-Care Text: Identifies barriers to communication and implements measures to provide psychological support Develops individualized plan of care, and ensures continuity of care Maintains patient's dignity and privacy, and maintains patient confidentiality Identifies and reports philosophical, cultural, and spiritual beliefs and values Identifies individual values and wishes concerning care Implements aseptic technique, and administers prescribed antibiotic therapy and immunizing agents as ordered Evaluates postoperative tissue perfusion Implements thermoregulation measures, and monitors body temperature Evaluates postoperative respiratory status Evaluates postoperative cardiac status Evaluates postoperative neurological status Assesses pain control, collaborated in initiating patient-controlled analgesia and implements alternative methods of pain control Verifies allergies, administers prescribed medications and solutions, evaluates response to medications Entry 1 In PACU I 05/06/17 11:20:00 Discharge from PACU 05/06/17 11:50:00 I Outcomes Met? Yes Last Modified By: Beverly Ellis RN 05/06/17 12:00:23 Post-Care Text: The patient demonstrates knowledge of the expected response to the operative or invasive procedure The patient's care is consistent with the individualized perioperative plan of care The patient's right to privacy is maintained The patient's value system, lifestyle, ethnicity, and culture are considered, respected, and incorporated into the perioperative plan of care The patient participates in decisions affecting his or her perioperative plan of care The patient is free from signs and symptoms of infection The patient has wound/tissue perfusion consistent with or improved from baseline levels established preoperatively The patient is at or returning to normothermia at the conclusion of the immediate postoperative period The patient's respiratory function is consistent with or improved from baseline levels established preoperatively The patient's cardiovascular status is consistent with or improved from baseline levels established preoperatively The patient's cardiovascular status is consistent with or improved from baseline levels established preoperatively The patient demonstrates and/or reports adequate pain control throughout the perioperative period The patient received appropriate medication(s), safely administered during the perioperative period Acuity Level PACU I FT Entry 1 Start Time 05/06/17 11:20:00 Stop Time 05/06/17 11:50:00 Acuity Level Acuity Level I Last Modified By: Beverly Ellis RN 05/06/17 12:00:37 Finalized By: Beverly Ellis RN Document Signatures Signed By: Beverly Ellis RN 05/06/17 12:00 Normal [facility] Main OR Preoperative Recordo n 05-06-2017 Cholesterol PreOp Document Type FT Summary Primary Physician: Slick Parker DPM Finalized Date/Time: 05/06/17 09:51:55 Pt. Name: CODY GOODSON/Sex: 1990 Male Med Rec #: [id number] Physician: Slick Parker DPM Financial #: [id number] Pt. Type: A Room/Bed: 02/ Admit/Disch: 05/06/17 06:52:46 - Institution: Case Times PreOp FT Pre-Care Text: Verifies consent for planned procedure, identifies individual values and wishes concerning care, includes family members in perioperative teaching Entry 1 Patient Times. In Pre Surgery 05/06/17 07:00:00 Out Pre Surgery 05/06/17 09:21:00 Outcomes Met? Yes Last Modified By: Emily Zamora RN 05/06/17 09:51:50 Post-Care Text: The patient participates in decisions affecting his or her perioperative plan of care Finalized By: Emily Zamora RN Document Signatures Signed By: Emily Zamora RN 05/06/17 09:51 Normal [facility] Operative Reporton 7 Operative Report Date of Surgery: 05/06/2017SURGEON: Slick Parker D.P.M.PREOPERATIVE DIAGNOSIS: Left posterior medial Achilles soft tissue massPOSTOPERATIVE DIAGNOSIS: Left posterior medial Achilles soft tissue massOPERATION: Excision of left posterior mass/benign fibroma with frozensection sent to Pathology for evaluation and diagnosis with findings ofbenign fibromaPATHOLOGY: 1.5 cm. x 3 cm. left posterior Achilles soft tissue massattached to Achilles tendonANESTHESIA: GeneralHEMOSTASIS: 350 mm. of Hg. left thigh tourniquet for 75 minutesESTIMATED BLOOD LOSS: 5 cc.MATERIALS: 3-0 Vicryl, 4-0 Vicryl, 4-0 Nylon, with application ofposterior splint to the leftINJECTABLES: 3 cc. of 0.5% Sensorcaine plainPROCEDURE: The patient was brought into the Operating Room and placed onthe Operating Room table in the supine position. Thigh tourniquet was thenplaced around the patient's left thigh. The foot and ankle were thenscrubbed, prepped and draped in the usual sterile manner. Esmarch bandagewas then utilized to exsanguinate the patient's left leg and thightourniquet was inflated to 350 mm. of Hg. for a total of 75 minutes.Attention was then directed to the posterior medial left Achilles region,where a curved linear incision was made over the contour of the deformityand the incision deepened through the subcutaneous tissue using sharp andblunt dissection, with care being taken to identify and retract all vitalneurovascular structures. All bleeders were ligated and cauterized asnecessary. At this time a small section of the mid-section of the mass wasremoved and sent to Pathology for frozen section with the findings returnedof a benign fibroma-type mass. Next attention was directed to themass-like region, where a sharp 15 blade was utilized to carefully dissectthe mass free from the Achilles tendon region and established a plane to doso around the Achilles tendon region with the Achilles still left intactand the mass was removed in total and noted to be 3.0 cm. x 1.5 cm. Thewound was then flushed with copious amounts of sterile Normal Saline. Thedeep structures were reapproximated and coapted utilizing 3-0 Vicryl, thesubcuticular tissue were reapproximated and coapted with 4-0 Vicryl, andthe skin was reapproximated and coapted utilizing 4-0 Nylon in a horizontalmattress suture technique. Next a total of 3 cc. of 0.5% Sensorcaine plainwas injected in the postoperative site. Sterile compressive dressingconsisting of Xeroform, 4 x 4's, abdominal pad and Kerlix was applied. Atthis time cast placement was placed around the patient's left leg and foot,and a posterior splint was then applied to the left leg and foot andsecured with Fermin wrap. The tourniquet was deflated prior to application ofthe dressing and prompt hyperemic response was noted in all digits onethrough five of the left foot. The patient was transferred to thePost-Anesthesia Care Unit with vital signs stable and neurovascular statusintact in digits one through five of the left foot, and following a periodof postoperative monitoring the patient will be discharged home with thefollowing oral and written postoperative instructions:1. Keep dressing dry and intact.2. The patient to remain non-weight bearing on the left foot.3. The patient was given Dr. Parker's postoperative care sheet includingoffice and hospital number if any problems arise, otherwise return [facility] in one week for his first postoperative visit.Slick Parker D.P.M.aekDictated: 05/06/2017 #[id number]: 05/06/2017 #[id number]: Slick Parker D.P.M. [facility] Comment on above: Result Comment: Electronically Signed By : Slick Parker DPM\.br\Date and Time Signed: 05/06/17 12:33 EST Patient Education - Texton 1 07-07-2016 Patient Education - Text Patient Education Materials Follows:[place], [place] DPM, FACFASPOST OPERATIVE INSTRUCTIONSKeep bandage clean and dry and DO NOT REMOVEKeep foot elevated on blue foam pillowApply ice to top of ankle, one hour on one hour off, until first office visitNo weight to post operative footTake pain medications as directedDo not be alarmed if you notice slight bleeding on the bandage, this is normalResume regular diet.Call the office if you develop:persistent bleedingtemperature above 100 degreespersistent vomitingcalf pain or shortness of breathredness or pus at operative siteCall the office tomorrow for 1st post-operative dressing change appointment.If you have any problems or questions, feel free to call the doctor at:[phone] or [phone] Parker paged. _ Patient signature Date Dr. Slick Parker DPM, FACFAS Date Revised: 07-02 [facility] Progress Note-Physicianon Thyroid stimulating hormone (TSH) Patient: CODY GOODSON Age: 26 years Sex: Male : 1990 Associated Diagnoses: None Author: Slick Parker DPM Postoperative Information Procedure: excision of tumor/fibroma to posterior medial achilles left with frozen section specimen and application of left posterior splint Date/ Time: 05/06/17 11:11:00 Preoperative Diagnosis: left soft tissue mass achilles. Postoperative Diagnosis: abida. Performed by: Slick Parker DPM Findings: soft tissue mass 3cmx 1.5cm posterior medial achilles insertion point. Specimens Removed: see findings. Estimated Blood Loss: 5 ml. Complications: None. Anesthesia type: General. [facility] Comment on above: Result Comment: Electronically Signed By : Slick Parker DPM\.br\Date and Time Signed: 05/06/17 11:13 EST Coding Summary.on 04-30-2017 Coding Summary. CODING DATE: 12/07/2 017 FINAL [facility] STATUS: Home (Routine DC) PAYOR: Commercial Insurance APC DESCRIPTION 5521 Level 1 Imaging without Contrast ADMIT DX: REASON FOR VISIT DX: Z01.818 Encounter for other preprocedural examination FINAL DX: PRINCIPAL: Z01.818 Encounter for other preprocedural examination SECONDARY: PYMT PROC APC STAT DESCRIPTION DOCTOR NAME DATE NOTE: The code number assigned matches the documented diagnosis and / or procedure in the patient's chart. However, the narrative phrase printed from the coding software may appear abbreviated, or result in slightly different terminology. Coded By: Gifty Muse Date Saved: 04/30/2017 03:25 pm Normal [facility] CBC w/Indiceson 04-29-2017 Erythrocyte distribution width Auto Ratio (RBC) 14.6 % High 10.9-14.2 [facility] Comment on above: Performed By: #### [id number] ####[facility] [address] [place] [address] Erythrocytes (RBC) 5.3 E12/L Normal 4.3-5.9 [facility] Comment on above: Performed By: #### [id number] ####[facility] [address] [place] [address] Hematocrit (HCT) 45.1 % Normal 37.7-49.0 [facility] Comment on above: Performed By: #### [id number] ####[facility] [address] [place] [address] Hemoglobin mass conc (Bld) 15.3 g/dL Normal 13.5-17.5 [facility] Comment on above: Performed By: #### [id number] ####[facility] [address] [place] [address] MCH 29.0 pg Normal 27.0-34.0 [facility] Comment on above: Performed By: #### [id number] ####[facility] [address] [place] [address] MCHC mass conc (RBC) 33.9 g/dL Normal 31.4-39.3 [facility] Comment on above: Performed By: #### [id number] ####[facility] [address] [place] [address] MCV 85.7 fL Normal 80.0-100.0 [facility] Comment on above: Performed By: #### [id number] ####[facility] [address] [place] [address] Platelet mean volume (PMV) 10.1 fL Normal 6.4-10.8 [facility] Comment on above: Performed By: #### [id number] ####[facility] [address] [place] [address] Platelets 175.0 E9/L Normal 150.0-500. 0 [facility] Comment on above: Performed By: #### [id number] ####[facility] [address] [place] [address] WBC (Leukocytes) 6.5 E9/L Normal 4.0-11.0 [facility] Comment on above: Performed By: #### [id number] ####[facility] [address] [place] [address] XR Chest 2 Viewson 7 XR Chest 2 Views Exam Date/Time:2016 09:40 ESTReason for Exam:Pre OpReportIMPRESSION: NO ACTIVE PULMONARY DISEASE.COMMENT: PA and lateral views of the chest show a normal-sized heart andunremarkable bronchovascular markings. There are no pneumonic infiltrates or pleuraleffusion. The mediastinum and the bony structures are unremarkable. FINAL REPORT Dictated: 04/29/2017 10:01 am Vinod Floyd M.D. Signed (Electronic Signature): 04/29/2017 10:06 am Signed by: Vinod Floyd M.D. Transcribed by: pedro Technologist: SHARIFA Normal [facility] Vital Signs Date Time Vital Sign Value Performing Clinician iMsael jacobs 09-16-2021 11:00-0400 Diastolic blood pressure 63 mm[Hg] Adolfo Matias MD Work Phone: [facility] 09-16-2021 11:00-0400 SaO2% (BldA) [Mass fraction] 96 % Adolfo Matias MD Work Phone: [facility] 09-16-2021 11:00-0400 Systolic blood pressure 123 mm[Hg] Adolfo Matias MD Work Phone: [facility] 09-16-2021 10:35-0400 Body temperature 98.1 [degF] Adolfo Matias MD Work Phone: [facility] 09-16-2021 10:35-0400 Heart rate 99 /min Adolfo Matias MD Work Phone: [facility] 09-16-2021 10:35-0400 Respiratory rate 22 /min Adolfo Matias MD Work Phone: [facility] 09-16-2021 08:49-0400 Body height 193 cm Adolfo Matias MD Work Phone: [facility] 09-16-2021 08:49-0400 Body weight 199.58 kg Adolfo Matias MD Work Phone: [facility] Encounters Encounter Date Encounter Type Care Provider Facility Start: 01-19-2024 End: 01-19-2024 ambulatory [facility] Start: 12-28-2023 ambulatory Mani Davis MD Work Phone: Gastroenterology Comment on above: Thalia Turner Start: 11-03-2023 End: 11-03-2023 ambulatory DANIEL ALEJANDRO Not Available Start: 11-03-2023 End: 11-03-2023 ambulatory DANIEL ALEJANDRO Not Available Start: 08-21-2023 Refill Rosa shay [employer] EQUIPMENT CAPTAIN-MEDICAL ADMINISTRATIVE TECHNICIAN Work Phone: [facility] Comment on above: Mild intermittent as thma without complication Start: 06-12-2023 End: 06-12-2023 ambulatory [facility] Start: 03-30-2023 End: 03-30-2023 ambulatory TORY TORREZ [facility] Start: 09-01-2022 End: 09-01-2022 ambulatory ANAHI CHAPMAN Facility:[facility] Start: 05-15-2022 End: 05-15-[address] JESSENIA COOK . Facility:[facility] Start: 01-26-2022 Refill Mani Davis MD Work Phone: Gastroenterology Comment on above: Refill Request Start: 09-16-2021 End: 09-16-2021 Orders Only Adolfo Matias MD Work Phone: Gastroenterology Comment on above: Morbid obesity (HCC) (Primary Dx); Snoring; At risk for obstructive sleep apnea Idiopathic colitis [ K52.9] Start: 09-13-2021 Telephone encounter Carmelo Batres [facility] Comment on above: Appointment Refill Request Start: 05-06-2017 End: 05-06-2017 Ambulatory Slick Parker Facility[facility] Start: 04-29-2017 End: 04-30-2017 Ambulatory Slick Parker Facility[facility] Procedures Date Procedure Procedure Detail Performing Clinician Start: 2022 Adult depression screening assessment Rosa Edward [employer] EQUIPMENT CAPTAIN-MEDICAL ADMINISTRATIVE TECHNICIAN Work Phone: Start: 09-16-2021 Colon ca scrn not hi rsk ind Mani Davis MD Work Phone: Plan of Treatment Date Care Activity Detail Author Start: 06-12-2024 Adult BMI Screening Adult BMI Screening [facility] Start: 06-12-2024 Tobacco Screening Tobacco Screening [facility] Start: 01-24-2024 Influenza vaccination Influenza Vaccine (#1) [facility] Start: 08-16-2023 Depression Screening Depression Screening [facility] Start: 01-23-2023 Covid-19 Vaccine ( season) Covid-19 Vaccine ( season) [facility] Start: 01-23-2023 Influenza vaccination Influenza Vaccine [facility] Start: 01-23-2022 Influenza vaccination [facility] Start: 09-16-2021 End: 11-16-2021 GLIADIN (DEAMINATED) ABS GLIADIN (DEAMINATED) ABS Lab Routine Chronic diarrhea Expected: 09/16/2021, Expires: 11/16/2021 [facility] Work Phone: Comment on above: Expected: 09/16/2021, Expires: 2 Start: 09-16-2021 End: 11-16-2021 IGA BLD IGA BLD Lab Routine Chronic diarrhea Expected: 09/16/2021, Expires: 11/16/2021 [facility] Work Phone: Comment on above: Expected: 09/16/2021, Expires: 2 Start: 09-16-2021 End: 11-16-2021 Tissue transglutaminase IgA Ab [Units/volume] in Serum TRANSGLUTAMINASE IGA Lab Routine Chronic diarrhea Expected: 09/16/2021, Expires: 11/16/2021 [facility] Work Phone: Comment on above: Expected: 09/16/2021, Expires: 2 Start: 08-14-2010 DTaP,Tdap and Td Vaccines (1 - Tdap) DTaP,Tdap and Td Vaccines (1 - Tdap) [facility] Start: 08-14-2010 Hepatitis B Vaccine (1 of 3 - 19+ 3-dose series) Hepatitis B Vaccine (1 of 3 - 19+ 3-dose series) [facility] Start: 08-14-2010 Urine microalbumin profile [facility] Start: 08-14-2009 Anxiety Screening Anxiety Screening [facility] Start: 08-14-2009 Depression Screening Depression Screening [facility] Start: 08-14-2009 HEPATITIS C SCREENING HEPATITIS C SCREENING [facility] Start: 08-14-2009 Hepatitis C screening Hepatitis C Screening [facility] Start: 08-14-2009 HIV SCREENING HIV SCREENING [facility] Start: 08-14-2009 HIV screening HIV Screening [facility] Start: 2003 Adult depression screening assessment DEPRESSION SCREENING [facility] Start: 08-14-1996 COVID-19 VACCINE (1) COVID-19 VACCINE (1) [facility] Start: 02-15-1992 COVID-19 VACCINE (#1) COVID-19 VACCINE (#1) [facility] Start: 1990 HEPATITIS B (1 of 3 - 3-dose series) HEPATITIS B (1 of 3 - 3-dose series) [facility] Start: 1990 Tobacco Counseling Tobacco Counseling [facility] SURGICAL PATHOLOGY [facility] Work Phone: Comment on above: Release Upon Ordering for 1 Occurrences starting 09/16/2021, 1 completed [facility] Immunizations Immunization Date Immunization Notes Care Provider Reji gunderson 02-06-2004 measles, mumps and rubella virus vaccine Rosa Bluesherrell MOTOR EQUIPMENT CAPTAIN-MEDICAL ADMINISTRATIVE TECHNICIAN Work Phone: [facility] Payers Date Payer Category Payer Medicaid [employer] [place] [id number] 2019-Present [phone] [address] [address] [place] [address] Medicaid [id number] 2019 Medicaid [id number] 2019 Unknown [facility] [id number] 2019-Present [phone] [address] [address] [place] [address] [id number] 2017 Private Health Insurance [id number] 2017 Private Health Insurance 1990 Unknown [id number] 1990 Unknown [id number] 1990 Unknown [id number] 1990 Unknown [id number] 1990 Unknown [id number] 1990 Unknown [id number] 1959 Unknown [id number] Social History Date Type Detail [facility] consumption unknown [facility] Start: 1990 Sex Assigned At Male [facility] Start: 09-06-2021 End: 09-16-2021 Exposure to SARS-CoV-2 (event) Not sure [facility] Start: 09-16-2021 End: 06-17-2022 Tobacco smoking status VTIS Never smoked tobacco [facility] Work Phone: Start: 09-16-2021 End: 06-17-2022 Tobacco use and exposure User of smokeless tobacco [facility] Work Phone: History of tobacco use Snuff User [facility] Work Phone: Start: 09-16-2021 Alcohol intake Ex-drinker (finding) [facility] History of tobacco use Chews Tobacco [facility] Start: 06-12-2023 Alcohol intake Lifetime non-drinker (finding) [facility] Start: 05-03-2020 End: 02-28-2022 History of Social function [facility] Start: 05-03-2020 End: 02-28-2022 Social connection and isolation panel [facility] Do you belong to any clubs or organizations such as christianity groups, unions, fraternal or athletic groups, or school groups? No [facility] Are you now , , , , never or living with a partner? Living with partner [facility] How often to you hav e a drink containing alcohol? Monthly or less [facility] How many standard dr inks containing alcohol do you have on a typical day? 1 or 2 [facility] How often do you hav e 6 or more drinks on 1 occasion? Less than monthly [facility] How hard is it for y ou to pay for the very basics like food, housing, medical care, and heating Not hard at all [facility] Do you feel stress - tense, restless, nervous, or anxious, or unable to sleep at night because your mind is troubled all the time - these days [OSQ] Only a little [facility] Start: 11-07-2019 Education 21 [facility] Start: 06-04-2020 Gender identity Identifies as male gender (finding) [facility] Start: 06-04-2020 Sexual orientation Heterosexual (finding) [facility] Clinical Notes 08-06-2021 to 12-28-2023 Telephone Encounter - Cynthia Alexander RN - 12/28/2023 11:27 AM EDTTelephone Encounter - Cynthia Aelxander RN - 12/28/2023 11:27 AM EDTTelephone Encounter - Joana Mckay LPN - 08/21/2023 11:10 AM EDT Note Date & Type Note Facility 12-28-2023 Telephone encounter Note Called pt and asked that he call the office and schedule a Virtual appointment with Dr. Davis tomorrow. Last office visit: 10/06/21. Office number left. Cynthia Alexander RN December 28, 2023 11:31 AM [facility] 12-28-2023 Miscellaneous Notes Called pt and asked that he call the office and schedule a Virtual appointment with Dr. Davis tomorrow. Last office visit: 10/06/21. Office number left. Cynthia Alexander RN December 28, 2023 11:31 AM documented in this encounter [facility] 08-21-2023 Miscellaneous Notes [facility] requesting refill of Omeprazole documented in this encounter [facility] 08-21-2023 Telephone encounter Note [facility] requesting refill of Omeprazole [facility] 03-30-2023 Note Rheumatology progres s note Interval history Since last clinic visit, patient reported doing well overall, no significant changes in his health status. He reports tolerating methotrexate well without side effects. No swelling of the joints or flareups noted. He usually takes methotrexate on , and had noticed increased stiffness in the morning in his hips and knees the next Thursday, the stiffness would last for about a few hours in the morning, and would get better with his next methotrexate dose. No other complaints at today's visit. No Known Allergies No past medical history on file. No past surgical history on file. No family history on file. Social History Socioeconomic History Marital status: Single Spouse name: Not on file Number of children: Not on file Years of education: Not on file Highest education level: Not on file Occupational History Not on file Tobacco Use Smoking status: Never Smokeless tobacco: Current Types: Chew Substance and Sexual Activity Alcohol use: Not Currently Drug use: Not Currently Sexual activity: Not on file Other Topics Concern Not on file Social History Narrative Not on file Social Determinants of Health Financial Resource Strain: Not on file Food Insecurity: Not on file Transportation Needs: Not on file Physical Activity: Not on file Stress: Not on file Social Connections: Not on file Intimate Partner Violence: Not on file Housing Stability: Not on file Current Outpatient Medications Medication Sig Dispense Refill albuterol 2.5 mg /3 mL (0.083 %) nebulizer solution Inhale 2.5 mg every 6 (six) hours if needed. albuterol 90 mcg/actuation inhaler inhale 2 puffs by mouth and INTO THE LUNGS every 6 hours if needed for wheezing allopurinol (Zyloprim) 100 mg tablet Take 200 mg by mouth in the morning. amLODIPine (Norvasc) 10 mg tablet Take 10 mg by mouth in the morning. budesonide-formoteroL (Symbicort) 160-4.5 mcg/actuation inhaler Inhale 2 puffs in the morning and at bedtime. dicyclomine (Bentyl) 20 mg tablet Take 20 mg by mouth in the morning and 20 mg in the evening. folic acid (Folvite) 1 mg tablet take 1 tablet by mouth every morning 30 tablet 0 losartan (Cozaar) 50 mg tablet 1 (one) time each day at the same time. methotrexate 2.5 mg tablet Take 4 tablets (10 mg total) by mouth 1 (one) time per week Follow directions carefully, and ask to explain any part you do not understand. Take exactly as directed. 20 tablet 2 omeprazole (PriLOSEC) [address] capsule 1 (one) time each day at the same time. hydrOXYzine pamoate (Vistaril) 25 mg capsule Take 25 mg by mouth if needed in the morning, at noon, and at bedtime. OXcarbazepine (Trileptal) 300 mg tablet Take 300 mg by mouth in the morning and 300 mg in the evening. ziprasidone (Geodon) 40 mg capsule Take 40 mg by mouth. No current facility-administered medications for this visit. MEDICATIONS Current Outpatient Medications on File Prior to Visit Medication Sig Dispense Refill albuterol 2.5 mg /3 mL (0.083 %) nebulizer solution Inhale 2.5 mg every 6 (six) hours if needed. albuterol 90 mcg/actuation inhaler inhale 2 puffs by mouth and INTO THE LUNGS every 6 hours if needed for wheezing allopurinol (Zyloprim) 100 mg tablet Take 200 mg by mouth in the morning. amLODIPine (Norvasc) 10 mg tablet Take 10 mg by mouth in the morning. budesonide-formoteroL (Symbicort) 160-4.5 mcg/actuation inhaler Inhale 2 puffs in the morning and at bedtime. dicyclomine (Bentyl) 20 mg tablet Take 20 mg by mouth in the morning and 20 mg in the evening. folic acid (Folvite) 1 mg tablet take 1 tablet by mouth every morning 30 tablet 0 losartan (Cozaar) 50 mg tablet 1 (one) time each day at the same time. methotrexate 2.5 mg tablet Take 4 tablets (10 mg total) by mouth 1 (one) time per week Follow directions carefully, and ask to explain any part you do not understand. Take exactly as directed. 20 tablet 2 omeprazole (PriLOSEC) [address] capsule 1 (one) time each day at the same time. hydrOXYzine pamoate (Vistaril) 25 mg capsule Take 25 mg by mouth if needed in the morning, at noon, and at bedtime. OXcarbazepine (Trileptal) 300 mg tablet Take 300 mg by mouth in the morning and 300 mg in the evening. ziprasidone (Geodon) 40 mg capsule Take 40 mg by mouth. No current facility-administered medications on file prior to visit. Physical Exam: BP (!) 132/94 (BP Location: Left wrist, Patient Position: Sitting, BP Cuff Size: Adult) Pulse 88 Ht 1.93 m (6' 4 ) Wt (!) 214 kg (472 lb) SpO2 96% BMI 57.45 kg/m??? Body mass index is 57.45 kg/m???. General: Alert, cooperative, appears well, no acute distress HEENT: Head normocephalic, atraumatic. Conjunctivae clear, no scleral icterus, EOMI. External ears normal. No sores in mouth, mucous membranes moist Lungs: Normal respiratory effort, no audible wheezing. No accessory muscle use with breathing. Clear to aus (more content not included)... [facility] 01-28-2022 Miscellaneous Notes Requested Prescriptions Pending Prescriptions Disp Refills dicyclomine (BENTYL) 20 mg tablet 200 tablet 5 Sig: Take 1 tablet by mouth twice daily. Last Visit: 08/06/21 Last Lab: 09/16/21 Cynthia Alexander RN January 28, 2022 9:36 AM documented in this encounter [facility] 09-16-2021 History and physical note COMPREHENSIVE DAY OF SURGERY SURGICAL SERVICES H&P SERVICE DATE: 09/16/2021 SERVICE TIME: 10:01 AM PRIMARY CARE PHYSICIAN: Salvatore Reveles Sr, MD Subjective CHIEF COMPLAINT: Chronic diarrhea HISTORY OF PRESENT ILLNESS: Mr. Goodson is a 31 year old male who presents for colonoscopy. No prior history of colonoscopy Paternal Uncle w/ Crohn's disease Chronic diarrhea X 6 months Loose stools w/o blood No weight loss Nocturnal awakening for bowel movements No NSAIDs use PAST MEDICAL HISTORY Diagnosis Date COVID-19 05/2020 HTN (hypertension) Morbid obesity (HCC) PAST SURGICAL HISTORY Procedure Laterality Date CYST EXCISION left heel FAMILY HISTORY Problem Relation Age of Onset Crohn's Disease Paternal Uncle Colon Cancer No Family History Colon Polyps No Family History Celiac Disease No Family History Ulcerative Colitis No Family History Social History Tobacco Use Smoking status: Never Smoker Smokeless tobacco: Current User Types: Snuff Vaping Use Vaping Use: Not on file Substance Use Topics Alcohol use: Not Currently Drug use: Yes Types: Marijuana Comment: occassional use (Not in a hospital admission) No current facility-administered medications for this encounter. ALLERGIES Not on File REVIEW OF SYSTEMS: RESPIRATORY: COPD; not oxygen requiring CARDIOVASCULAR: Negative for chest pain, leg swelling, CHF or palpitations GENERAL: No weight loss, malaise or fevers GI: See HPI Objective PHYSICAL EXAM: BP 130/75 Pulse 88 Temp (Src) 98.8 (Temporal) Resp 20 Ht 6' 4 (1.93m) Wt 440 lb (199.6kg) SpO2 97% BMI 53.58 kg/(m^2). O2 Therapy: Room Air Physical Exam Performed LUNGS: Lungs clear to auscultation, Good diaphragmatic excursion CARDIAC: distant heart sounds GENERAL: Alert, no distress, cooperative, Morbidly Obese SKIN: multiple tattoos EYES: glasses ABDOMEN: Abdomen soft, non-tender, BS normal, No masses or organomegaly NEURO: alert and oriented X 3 DATA: Diagnostic tests reviewed for today's visit: Most recent labs Assessment/Plan 1. Chronic diarrhea w/o alarm features 2. FHx Crohns disease (paternal uncle) 3. History of COVID 4. Morbid obesity Colonoscopy with biopsies Discussed with patient/patient field representatives director the indications, alternatives, benefits and risks of procedure. Some of the possible risks include bleeding, infection, drug reaction, perforation, missed lesions, cardiopulmonary arrest or even , were also reviewed with patient/patient field representatives director. SIGNATURE: Adolfo Matias MD PATIENT NAME: Cody Goodson DATE: September 16, 2021 TIME: 10:01 AM documented in this encounter [facility] 09-16-2021 Miscellaneous Notes Pending Prescriptions Disp Refills POLYETHYLENE GLYCOL 3350 17 GRAM/DOSE ORAL POWDER 238 g 0 Sig: Use as directed for Miralax / Gatorade Bowel Prep Kit ROSY: No BISACODYL 5 MG TABLET 4 tablet 0 Sig: Use as directed for Miralax / Gatorade Bowel Prep Kit ROSY: No Last Visit: 08/06/21 Last Lab: 08/28/21 Cynthia Alexander RN September 16, 2021 9:36 AM documented in this encounter [facility] 09-13-2021 Miscellaneous Notes Which Attempt: X 2nd Call Status: Completed X Left Voice Message Surgery Location: [place] Arrival Time:0845 Note: Left detailed message on voice mail. documented in this encounter [facility] 08-06-2021 Note HNO ID: [id number] Author: Mani Davis MD Service: ? Author Type: Physician Type: Progress Notes Filed: 08/06/2021 9:32 AM Note Text: Virtual vist, 20 minutes, patient agreed 30 yo with one week of diarrhea - about 6 loose stools daily, occ bleeding, +abd pain that is improved with a bm. Stool tests and labs normal x for high CRP. Wt stable, no fevers, not COVID vaccinated. Hx of E coli last year with similar symptoms. Diarrhea - will ask pt to have labs sent to me, take up to 4 Imodium daily, get tested for COVID, and schedule colonoscopy. Mani Davis MD [facility] Evaluation note Diagnosis Morbid obesity (HCC)- Primary Morbid obesity Snoring Other dyspnea and respiratory abnormality At risk for obstructive sleep apnea [facility] Diagnosis Chronic diarrhea- Primary Diarrhea Idiopathic colitis Other and unspecified noninfectious gastroenteritis and colitis Morbid obesity with BMI of 50.0-59.9, adult (HCC) Morbid obesity Encounter for pre-bariatric surgery counseling and education Other specified counseling documented [facility] this [facility] Diagnosis Mild intermittent asthma without complication documented [facility]ructionsNot on filedocumented in this encounter [facility] SystemReason for visit Narrative* Outpatient Procedure (Routine) - Closed Specialty Diagnoses / Procedures Referred By Contac t Referred To Contact [facility] Diagnoses Idiopathic colitis Procedures COLONOSCOPY SCREENING COLONOSCOPY FLX DX W/COLLJ SPEC WHEN PFRMD Mani Davis MD [address] [place] [address] [facility] [address] [place] [address] Referral ID Status Reason Start Date Expiration Date V isits Requested Visits Authorized [id number] Closed Auto-Generate d Referral 08/06/2021 08/06/2022 1 1 [facility] Summary Purpose Family History No Family History Records FoundNo Family History Records FoundNo Family History Records FoundNo Family History Records FoundNo Family History Records FoundNo Family History Records FoundNo Family History Records Found Advance Directives No Advanced Directives Records FoundDocuments on File Type Date 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 Directive(s) 08/12/2021 1:42 PM Documents on File Type Date 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 Directive(s) 08/12/2021 1:42 PM Reason for Referral Specialty Diagnoses / Procedures Referred By Contac t Referred To Contact [facility] Diagnoses Morbid obesity (HCC) Snoring At risk for obstructive sleep apnea Procedures CONSULT TO PULM/CRITICAL CARE OFFICE/OUTPATIENT [facility] 60-74 MINUTES Adolfo Matias MD [address] [place] [address] Estefany Hewitt MD [address] [facility] [address] [place] [address] Referral ID Status Reason Start Date Expiration Date Visits Requested Visits Authorized [id number] Authorized PCP Requested Referral 09/16/2021 09/16/2022 1 1 Specialty Diagnoses / Procedures Referred By Contac t Referred To Contact General Surgery Diagnoses Morbid obesity with BMI of 50.0-59.9, adult (HCC) Encounter for pre-bariatric surgery counseling and education Procedures CONSULT TO GENERAL SURGERY OFFICE/OUTPATIENT [facility] 60-74 MINUTES Adolfo Matias MD [address] [place] [address] Richie Wick MD [address] [facility] [id number] [place] [address] Referral ID Status Reason Start Date Expiration Date Visits Requested Visits Authorized [id number] Authorized PCP Requested Referral 09/16/2021 09/16/2022 1 1 Specialty Diagnoses / Procedures Referred By Contac t Referred To Contact [facility] Diagnoses Idiopathic colitis Procedures COLONOSCOPY SCREENING COLONOSCOPY FLX DX W/COLLJ SPEC WHEN PFRMD Mani Davis MD [address] [place] [address] [facility] [address] [place] [address] Referral ID Status Reason Start Date Expiration Date V isits Requested Visits Authorized [id number] Closed Auto-Generate d Referral 08/06/2021 08/06/2022 1 1 Additional Source Comments (unrecognized sect ion and content) No Status Records FoundNo Status Records FoundNo Status Records FoundNo Status Records FoundNo Status Records FoundNo Status Records FoundNo Status Records Found INFORMATION SOURCE (unrecogn ized section and content) DATE CREATED AUTHOR 11/17/2017 [facility] DATE CREATED AUTHOR AUTHOR'S ORGANIZ ATION 08/16/2021 [facility] DATE CREATED AUTHOR AUTHOR'S ORGANIZ ATION 09/20/2021 [facility] DATE CREATED AUTHOR AUTHOR'S ORGANIZ ATION 09/02/2022 [facility] DATE CREATED AUTHOR AUTHOR'S ORGANIZ ATION 11/08/2023 [facility] DATE CREATED AUTHOR AUTHOR'S ORGANIZ ATION 01/21/2024 [facility] DATE CREATED AUTHOR AUTHOR'S ORGANIZ ATION 01/30/2024 [facility] Source Comments (unrecognize d section and content) In the event this informatio n is protected by the Federal Confidentiality of Alcohol and Drug Abuse Patient Records regulations: The Federal rules restrict any use of the information to criminally investigate or prosecute any alcohol or drug abuse patient.[facility] Hospital[facility] the event this information is protected by the Federal Confidentiality of Alcohol and Drug Abuse Patient Records regulations: The Federal rules restrict any use of the information to criminally investigate or prosecute any alcohol or drug abuse patient.[facility] Hospital[facility] the event this information is protected by the Federal Confidentiality of Alcohol and Drug Abuse Patient Records regulations: The Federal rules restrict any use of the information to criminally investigate or prosecute any alcohol or drug abuse patient.[facility] Hospital[facility] the event this information is protected by the Federal Confidentiality of Alcohol and Drug Abuse Patient Records regulations: The Federal rules restrict any use of the information to criminally investigate or prosecute any alcohol or drug abuse patient.[facility] Hospital[facility] the event this information is protected by the Federal Confidentiality of Alcohol and Drug Abuse Patient Records regulations: The Federal rules restrict any use of the information to criminally investigate or prosecute any alcohol or drug abuse patient.[facility] HospitalIn the event this information is protected by the Federal Confidentiality of Alcohol and Drug Abuse Patient Records regulations: The Federal rules restrict any use of the information to criminally investigate or prosecute any alcohol or drug abuse patient.[facility] Reason for Visit (unrecogniz ed section and content) Reason Comments Appointment Reason Onset Date Comments Refill Request 09/13/2021 Reason Onset Date Comments Refill Request 01/26/2022 Reason Comments Med Refill Care Teams (unrecognized sec tion and content) Bacteriologist Dairy Relationship Specialty Start Date End Date Salvatore Reveles Sr [address] [place] [address] PCP - General Family Practice 10/24/17 Bacteriologist Dairy Relationship Specialty Start Date End Date Salvatore Reveles Sr [address] [place] [address] PCP - General Family Practice 10/24/17 Bacteriologist Dairy Relationship Specialty Start Date End Date Salvatore Reveles Sr [address] [place] [address] PCP - General Family Practice 10/24/17 Bacteriologist Dairy Relationship Specialty Start Date End Date Salvatore Reveles Sr [address] [place] [address] PCP - General Family Practice 10/24/17 Bacteriologist Dairy Relationship Specialty Start Date End Date Salvatore Reveles Sr [address] [place] [address] PCP - General Family Practice 10/24/17 Bacteriologist Dairy Relationship Specialty Start Date End Date Rosa Edward APRN-MEDICAL ADMINISTRATIVE TECHNICIAN [address] [place] [address] PCP - General Family Medicine 11/29/19 Bacteriologist Dairy Relationship Specialty Start Date End Date Salvatore Reveles Sr., DO PCP - General Family Medicine 10/24/17 FOR RECORDS PERTAINING TO PATIENTS WHO ARE OR HAVE BEEN ENROLLED IN A CHEMICAL DEPENDENCY/SUBSTANCEABUSE PROGRAM, SOME INFORMATION MAY BE OMITTED. This clinical summary was aggregated from multiple sources. Caution should be exercised in using it in the provision of clinical care. This summary normalizes information from multiple sources, and as a consequence, information in this document may materially change the coding, format and clinical context of patient data. In addition, data may be omitted in some cases. CLINICAL DECISIONS SHOULD BE BASED ON THE PRIMARY CLINICAL RECORDS. [facility] [employer] provides no warranty or guarantee of the accuracy or completeness of information in this document.
[2024-02-24 11:49] LABS: Basophils Percent Auto 0.5 % (0.2-2.0); Eosinophils Absolute Auto 0.1 10^3/uL (0.0-0.7); Eosinophils Percent Auto 1.8 % (0.9-7.0); Hematocrit 44.2 % (42.0-54.0); Hemoglobin 13.9 g/dL (14.0-18.0); Immature Granulocytes Abs Auto 0.03 10^3/uL (0.00-0.03); Immature Granulocytes Pct Auto 0.4 % (0.0-0.5); Mean Corpuscular HGB Conc 31.4 g/dL (29.9-35.2); Mean Corpuscular Hemoglobin 27.6 pg (25.9-34.0); Mean Corpuscular Volume 87.9 fL (80.0-94.0); Mean Platelet Volume 11.9 fL (9.5-13.5); Monocytes Absolute Auto 0.5 10^3/uL (0.3-0.8); Monocytes Percent Auto 6.1 % (1.7-12.0); Neutrophils Absolute Auto 5.3 10^3/uL (1.4-6.5); Neutrophils Percent Auto 66.2 % (43.0-75.0); Platelet Count 227 10^3/uL (150-450); Red Blood Count 5.03 10^6/uL (4.70-6.10); Red Cell Distribution Width 14.4 % (11.0-15.0); White Blood Count 7.9 10^3/uL (4.0-11.0)
[2024-02-24 12:07] LABS: Erythrocyte Sedimentation Rate 68 mm/hr (<=15)
[2024-02-24 13:00] LABS: Alanine Aminotransferase 35 U/L (16-63); Albumin Globulin Ratio 0.8; Albumin Level 3.6 g/dL (3.4-5.0); Alkaline Phosphatase 67 U/L (46-116); Aspartate Amino Transferase 17 U/L (15-37); Bilirubin Direct 0.1 mg/dL (0.0-0.2); Bilirubin Total 0.2 mg/dL (0.2-1.0); Estimated GFR (African America >60 (>=60 mL/min/1.73m^2); Estimated GFR (Non-African Ame >60 (>=60 mL/min/1.73m^2); Globulin 4.3 g/dL; Total Protein 7.9 g/dL (6.4-8.2)
== END 2024-02-24 11:18 | disposition home or self-care (01) ==
LOC: LAB 11:19
PROVIDERS: PCP Nurse Practitioner Family
DX: M05.79 Rheumatoid arthritis with rheumatoid factor of multiple sites without organ or systems involvement (principal)
CPT/HCPCS: 36415; 80076; 82565; 85025; 85652; 86140

== ENCOUNTER 2024-05-16 08:39 | Emergency (ER) | payer OTHER, SELFPAY ==
[2024-05-16 08:40] VITALS: BP 103/58; PULSE 75; TEMP 36.4; O2SAT 95; BMI 54.8
[2024-05-16 08:54] VITALS: PULSE 70
--- NOTE | 2024-05-16 08:56 | PC.NURSE ---
pt was at work and noticed R heel was bleeding. pt had no injury. heel is very dry and appears that the skin has cracked in multiple areas. bleeding controlled at this time.
--- OUTSIDE RECORDS SUMMARY | 2024-05-16 09:12 | XMS_ITS | CCD ---
Author Organization [facility] Inform ion Partnership [facility] Care Team Providers Care Electrical Panel Builder Name Role Phone Slick Parker Unavailable Unavailable Slick Parker Unavailable Unavailable Melany Parkers Stephane Unavailable Unavailable House, Salvatore Unavailable Unavailable Nathan Parkerolas A Unavailable Unavailable Nathan Parkerolas A Unavailable Unavailable Melany Parkers A Unavailable Unavailable Salvatore Reveles Unavailable Unavailable House Sr., Salvatore Abad Primary Care Provider Slade Sr.Salvatore Primary Care Provider ANAHI CHAPMAN Admitting Unavailable ANAHI CHAPMAN Attending Unavailable DEFRANCE, DR AHSLEY Primary Care Unavailable ANAHI CHAPMAN Consulting Unavailable JOYCE ., DR RUELAS Admitting Unavailable JOYCE ., DR RUELAS Attending Unavailable MISC, DR BUTLER Primary Care Unavailable HELGA ., MR CARLSON Consulting Unavailable Wagner STORE GROUP MANAGER-Rosa THOMAS Primary Care Provide r DANIEL ALEJANDRO Attending Unavailable DANIEL ALEJANDRO Referring Unavailable House Sr., Salvatore BURCH Primary Care Provider ROSA EDWARD Attending Unavailable ROSA EDWARD Referring Unavailable ROSA EDWARD Primary Care Unavailable ROSA EDWARD Attending Unavailable ROSA EDWARD Referring Unavailable ROSA EDWARD Primary Care Unavailable OZ HANSEN Referring Unavailable ROSA EDWARD Primary Care Unavailable OZ HANSEN Attending Unavailable Medications Current Medications Medication Drug Class(es) Dates Sig (Normalized) Sig (Original) [id number] actuat albuterol 0.09 mg/actuat metered dose inhaler (6 sources) beta2-Adrenergic Agonist Start: 08-20-2022 take 2 [...] 07/16/2021 Active allopurinol 100 mg oral tablet (3 sources) Xanthine Oxidase Inhibitor Start: 01-28-2024 take 2 tablets by mouth in the morning allopurinoL (ZYLOPRIM) 100 mg tablet Take 2 tablets (200 mg total) by mouth in the morning. 180 tablet 1 01/28/2024 Active Start: 03-23-2023 take 2 tablets by mo [facility] once daily in the morning allopurinoL (ZYLOPRIM) 100 mg tablet take 2 tablets by mouth every morning 180 tablet 1 03/23/2023 Active amLODIPine 10 mg oral tablet (7 sources) Dihydropyridine Calcium Channel Rosibel Start: 01-28-2024 take 1 tablet by mouth in the morning amLODIPine (NORVASC) 10 mg tablet Take 1 tablet (10 mg total) by mouth in the morning. 90 tablet 1 01/28/2024 Active Start: 04-07-2023 take 1 tablet by amber th in the morning amLODIPine (NORVASC) 10 mg [...] formoterol fumarate 0.0045 mg/actuat metered dose inhaler (3 sources) Corticosteroid, beta2-Adrenergic Agonist Start: 08-06-19 take 2 puff(s) by mouth twice daily SYMBICORT 160-4.5 mcg/actuation inhaler Indications: Dyspnea on exertion , Mild intermittent asthma without complication inhale 2 puffs by mouth twice a day 10.2 g 6 08/05/2022 Active clonazePAM 0.5 mg oral tablet (3 sources) Benzodiazepine clonazePAM (KlonoPIN) 0.5 mg tablet Oral for 15 Days Active dicyclomine hydrochloride 20 mg oral tablet (3 sources) Anticholinergic Start: 01-29-20 take 1 tablet by mouth twice daily dicyclomine (BENTYL) 20 mg tablet Take 1 tablet by mouth twice daily. 200 tablet 5 01/28/2022 Active Start: 09-19-2021 End: 01-26-2022 take 1 tablet by mouth twice daily dicyclomine (BENTYL) 20 mg tablet Take 1 tablet by mouth twice daily. 200 tablet 5 09/19/2021 01/26/2022 Discontinued Comment on above: Take 1 tablet by amber twice daily. hydrOXYzine pamoate 25 mg oral capsule (1 source) Antihistamine Start: 06-12-19 take 1 capsule by mouth three times daily as needed hydrOXYzine (VISTARIL) 25 mg capsule Take 1 capsule (25 mg total) by mouth 3 (three) times a day as needed. 0 06/12/2022 Active inhalational spacing device (AEROCHAMBER MV) spacer (3 sources) Start: 08-16-19 inhalational spacing device (AEROCHAMBER MV) spacer Use with inhaler 1 each 2020 Active Start: 2020 inhalational s pacing device (AEROCHAMBER MV) spacer Use with inhaler 1 each 0 2020 Active lithium carbonate 300 mg oral capsule (3 sources) take 1 capsule by mouth twice daily lithium carbonate 300 mg capsule take 1 capsule by mouth twice a day Active losartan potassium 50 mg oral tablet (7 sources) Angiotensin 2 Receptor Rosibel Start: 01-28-2024 take 1 tablet by mouth in the morning losartan (COZAAR) 50 mg tablet Take 1 tablet (50 mg total) by mouth in the morning. 90 tablet 1 01/28/2024 Active Start: 04-13-2023 take 1 tablet by amber once daily in the morning losartan (COZAAR) 50 mg tablet take 1 tablet by mouth every morning 90 tablet 1 04/13/2023 Active Comment on above: Take 50 mg by mouth once daily. methotrexate 2.5 mg oral tablet (3 sources) Folate Analog Metabolic Inhibitor take 4 tablets by mouth every week methotrexate 2.5 mg chemo tablet take 4 tablets by mouth every week EXACTLY DIRECTED. FOLLOW DIRECTIONS CAREFULLY Active nirmatrelvir-ritonav ir (PAXLOVID) tablets (1 source) Start: 03-17-20 End: 03-22-20 nirmatrelvir-ritona vir (PAXLOVID) tablets Take 3 tablets by mouth in the morning and 3 tablets before bedtime. Do all this for 5 days. For doses of 3 tablets - Take two 150 mg nirmatrelvir (pink) tablets at the same time as one 100 mg ritonavir (white) tablet per dose.. 30 tablet 03/17/2024 03/22/2024 Active nystatin 100 unt/mg topical powder (4 sources) Polyene Antifungal Start: 06-12-19 End: 04-11-20 nystatin (MYCOSTATIN) powder Apply 1 Application topically in the morning and 1 Application before bedtime. 15 g 1 04/11/2024 Active OLANZapine 10 mg oral tablet (1 source) Atypical Antipsychotic take 1 tablet by mouth at bedtime OLANZapine (ZyPREXA) 10 mg tablet take 1 tablet by mouth at bedtime 0 Active omeprazole 40 mg delayed release oral capsule (8 sources) Proton Pump Inhibitor Start: 01-28-20 take 1 capsule by mouth once daily before breakfast omeprazole (PriLOSEC) 40 mg capsule Indications: Mild intermittent asthma without complication Take 1 capsule (40 mg total) by mouth every morning before breakfast. 90 capsule 1 01/28/2024 Active Start: 11-19-2022 End: 08-21-2023 take 1 capsule by mouth once daily in the morning omeprazole (PriLOSEC) 40 mg capsule Indications: Mild intermittent asthma without complication take 1 capsule by mouth every morning 30 capsule 0 08/21/2023 Active Comment on above: Take 40 mg by mouth once daily. OXcarbazepine 300 mg oral tablet (1 source) Anti-epileptic Agent Start: take 1 tablet by mouth in the morning, then take 1 tablet by mouth at bedtime OXcarbazepine (TRILEPTAL) 300 mg tablet Take 1 tablet (300 mg total) by mouth in the morning and 1 tablet (300 mg total) before bedtime. 0 02/01/2022 Active polyethylene glycol 3350 68885 mg powder for oral solution (4 sources) Osmotic Laxative Start: End: polyethylene glycol 3350 (MIRALAX, GLYCOLAX) 17 gram/dose powder Use as directed for Miralax / Gatorade Bowel Prep Kit 238 g 0 09/16/2021 09/16/2021 Discontinued Start: 08-06-2021 End: 09-13-2021 polyethylene glycol 3350 (RI RALAX, GLYCOLAX) 17 gram/dose powder Use as directed for Miralax / Gatorade Bowel Prep Kit 238 g 0 08/06/2021 09/13/2021 Discontinued Comment on above: Use as directed for Miralax / Gatorade Bowel Prep Kit 60 actuat tiotropium 0.01877 mg/actuat inhalation spray (3 sources) Anticholinergic Start: 023 take 1.25 ug by inhalation once daily tiotropium bromide (SPIRIVA RESPIMAT) 1.25 mcg/actuation mist 2 puffs Inhalation Once a day 01/22/2023 Active traZODone hydrochloride 50 mg oral [...] status; Translations: [Other specified counseling] Episodic Asthma (4 sources) Mild intermittent asthma; Translations: [Mild intermittent asthma, uncomplicated] Onset: 02-16-2023 08-21-2023 Chronic Essential hypertension (4 sources) Essential (primary) hypertension; Translations: [Essential hypertension] Onset: 09-02-2022 02-16-2023 Chronic Gout and other crystal arthropathies (1 source) Gout, unspecified; Translations: [GOUT UNSPECIFIED] Onset: 09-02-2022 Chronic Immunity disorders (3 sources) Immunodeficiency, unspecified; Translations: [Immunodeficiency, unspecified] Onset: 03-03-2024 Chronic Mood disorders (3 sources) Mixed bipolar affective disorder, moderate; Translations: [Bipolar disorder, current episode mixed, moderate] Onset: 07-30-2022 02-16-2023 Chronic Noninfectious gastroenteritis (2 sources) Idiopathic colitis; Translations: [Noninfective gastroenteritis and colitis, unspecified] Episodic Other aftercare (1 source) Other adjunct faculty for medical terminology (current) drug therapy; Translations: [OTH MEDICATION AIDE CURRENT DRUG THERAPY] Onset: 09-02-2022 Episodic Other connective tissue disease (3 sources) Pain in left toe(s); Translations: [PAIN IN LEFT TOES] Onset: 09-01-2022 Episodic Other lower respiratory disease (1 source) Snoring; Translations: [Snoring] Episodic Other lower respiratory disease (1 source) Cough Onset: 01-19-2024 Episodic Other nervous system disorders (2 sources) Other chronic pain; Translations: [Other chronic pain] Onset: 03-03-2024 Chronic Other non-traumatic joint disorders (4 sources) Pain in right ankle and joints of right foot; Translations: [PAIN IN RIGHT ANKLE] Onset: 05-15-2022 Episodic Other non-traumatic joint disorders (1 source) Ankle pain Onset: 01-19-2024 Episodic Other non-traumatic joint disorders (2 sources) Pain in unspecified ankle and joints of unspecified foot; Translations: [Pain in unspecified ankle and joints of unspecified foot] Onset: 03-03-2024 Episodic Other nutritional; endocrine; and metabolic disorders (1 source) Morbid obesity; Translations: [Morbid (severe) obesity due to excess calories] Chronic Other nutritional; endocrine; and metabolic disorders (4 sources) Body mass index 40+ - severely obese; Translations: [Morbid (severe) obesity due to excess calories] Onset: 02-16-2023 Chronic Other upper respiratory infections (1 source) Acute maxillary sinusitis, unspecified; Translations: [Acute maxillary sinusitis, unspecified] Onset: 01-19-2024 Episodic Residual codes; unclassified (1 source) At risk of apnea; Translations: [Other specified personal risk factors, not elsewhere classified] Episodic Rheumatoid arthritis and related disease (5 sources) Rheumatoid arthritis of multiple joints; Translations: [Rheumatoid arthritis with rheumatoid factor of multiple sites without organ or systems involvement] Onset: 02-16-2023 02-16-2023 Chronic Substance-related disorders (1 source) Nicotine dependence, cigarettes, uncomplicated; Translations: [NICOTINE DEPEND CIGARETTES UNCOMP] Onset: 06-17-2022 Chronic Unclassified (1 source) Rash Onset: 06-12-2023 Past or Other Problems Problem Classification Problem Date Documented Da te Episodic/Chronic Diabetes mellitus without complication (1 source) Impaired fasting glucose; Translations: [Impaired fasting glucose] Onset: 06-12-2023 Episodic Mood disorders (3 sources) Mood disorders Onset: 2022 2022 Mycoses (1 source) Other sites of candidiasis; Translations: [Other sites of candidiasis] Onset: 06-12-2023 Episodic Unclassified (3 sources) Onset: 06-12-2023 Resolved: 01-19-2024 06-12-2023 Results Test Name Value Interpretation Reference Range Facility 36on 05-10-2024 36 Update from patient Normal [facility] Orders Onlyon 05-10-2024 Orders Only [id number] Sb Cody 1990 M Date Provider Department Center 05/10/2024 [id number], [facility] No family history on file [facility] Orders Onlyon 05-05-2024 Orders Only [id number] Sb Cody 1990 M Date Provider Department Center 05/05/[id number], [facility] No family history on file [facility] 36on 05-04-2024 36 (M) Normal [facility] 36 New update from brendon ent on gabapentin [facility] Orders Onlyon 05-04-2024 Orders Only [id number] Sb, Cody 1990 M Date Provider Department Center 05/04/[id number], [facility] No family history on file [facility] 36on 04-27-2024 36 Update from patient regarding Gabapentin. [facility] 36on 04-25-2024 36 Spoke with Patient i s agreeable to medication. Please send to [facility] in [place]. [facility] 36 Update on patient's symptoms. Please advise. [facility] Orders Onlyon 04-25-2024 Orders Only [id number] Sb Cody 1990 M Date Provider Department Center 04/25/[id number], [facility] No family history on file [facility] 36on 03-21-2024 36 Update from patient Normal [facility] Orders Onlyon 03-21-2024 Orders Only [id number] Sb Cody 1990 M Date Provider Department Center 03/21/[id number], [facility] No family history on file [facility] 36on 03-17-2024 36 Please advise. [facility] 36 Please advise. [facility] Patient Messageon 03-17-2024 Patient Message [id number] Cody Basurto 1990 M Date Provider Department Center 03/17/2024 [facility] No family history on file [facility] Orders Onlyon 03-14-2024 Orders Only [id number] Cody Basurto 1990 M Date Provider Department Center 03/14/2024 [id number], [facility] No family history on file [facility] Follow-Upon 03-03-2024 Follow-Up [id number] Cody Basurto 1990 M Date Provider Department [place] 03/03/2024 Moe-OZ [facility] No family history on file Level of Service:35058 MS OFFICE/OUTPATIENT ESTABLISHED MOD MDM 30 MIN () Reason for Visit and Comments: Rheumatoid Arthritis [345] - Increased stiffness lasting all day. Joint Swelling [763437] - Right ankle Normal [facility] M. tuberculosis stim IFN-g p antonio (Bld)on 03-03-2024 Mitogen minus Nil Result 9.99 IU/mL Normal [facility] Nil Result 0.01 IU/mL [facility] Comment on above: Result Comment: NOTE Test Performed by: [facility] [address] [place] [id number] Record Searcher: Temi Darden Ph.D.; CLIA# [id number] QuantiFERON-Tb Gold Plus Result Negative Normal Negative [facility] Comment on above: Result Comment: NOTE No interferon-gamma response to M. tuberculosis antigens was detected. Latent infection with M. tuberculosis is unlikely. A single negative result does not exclude infection with M. tuberculosis. In patients at high risk for M.tuberculosis infection, a second test should be considered in accordance with the 2017 ATS/IDSA/CDC Clinical Practice Guidelines for Diagnosis of Tuberculosis in Adults and Children [Tatiana WEEMS et. al. Clin. Infect. Dis. 2017;64(2):111-115]. The reference range for the 'TB1 Ag minus Nil Result' and 'TB2 Ag minus Nil Result' is an Interferon-gamma level <0.35 IU/mL. TB1 Ag minus Nil Result 0.00 IU/mL Normal [facility] TB2 Ag minus Nil Result 0.00 IU/mL Normal [facility] 3601-28-2024 36 Left message informi ng patient to call office and schedule a follow up appointment. [facility] 09-11-2023 36 LVM for patient to c all back and reschedule [facility] 09-10-2023 36 It's okay to resched uled, he forgot to get labs completed and then went to a [facility] location without a hard copy of lab orders. I have mailed the lab orders to the patient to have completed. [facility] 36 Patient has no showe d three out of seven appointments since being established. No showed 10/13/22 w/Ding, 06/30/23 w/Ding, and 09/10/23 w/Aya. Okay to R/S or dismissed? [facility] ANES POSTPROC EVALon 022 ANES POSTPROC EVAL HNO ID: [id number] Author: Jose Gillespie MD Service: Anesthesiology Author Type: Anesthesiologist Type: Anesthesia Postprocedure Evaluation Filed: 09/16/2021 10:50 AM Note Text: POST ANESTHESIA EVALUATION NOTE : 1990 Procedure Summary Date: 09/16/21 Room / Location: [facility] Anesthesia Start: 1010 Anesthesia Stop: 1034 Procedure: COLONOSCOPY SCREENING Diagnosis: Idiopathic colitis (Chronic [...] SIGNATURE: Jose Gillespie MD PATIENT NAME: Cody Basurto DATE: September 16, 2021 TIME: 10:50 AM CSN: [id number] Normal [facility] ANES PRE-OPon 09-16-2021 ANES PRE-OP HNO ID: [id number] Author: Jose Gillespie MD Service: Anesthesiology Author Type: Anesthesiologist Type: Anesthesia Preprocedure Evaluation Filed: 09/16/2021 9:02 AM Note Text: ANESTHESIOLOGY DAY OF SURGERY NOTE : 1990 Procedure Information Date/Time: 09/16/21 1000 Scheduled providers: Adolfo Matias MD Procedure: COLONOSCOPY SCREENING Location: [facility] Estimated body mass index [...] and consent discussed: yes. Patient / Responsible Republican agrees to proceed: yes Patient / Surrogate [...] none. Vitals Value Taken Time BP 130/75 04/25/22 0852 Pulse 88 09/16/21 0852 Resp 20 09/16/21 0852 Temp 37.1 ?C (98.8 ?F) 09/16/21 08 [...] SIGNATURE: Jose Gillespie MD PATIENT NAME: Cody Basurto DATE: September 16, 2021 TIME: 9:01 AM CSN: [id number] [facility] COLONOSCOPY SCREENINGon 08-24 [facility] HISTORY PHYSICALon HISTORY PHYSICAL HNO ID: [id number] Author: Adolfo Matias MD Service: Gastroenterology Author Type: Physician Type: HANDP Filed: 09/16/2021 10:06 AM Note Text: COMPREHENSIVE DAY OF SURGERY SURGICAL SERVICES HANDP SERVICE DATE: 09/16/2021 SERVICE TIME: 10:01 AM PRIMARY CARE PHYSICIAN: Salvatore Reveles Sr, MD Subjective CHIEF COMPLAINT: Chronic diarrhea HISTORY OF PRESENT ILLNESS: Mr. Basurto is a 31 year old male who [...] obesity Colonoscopy with biopsies Discussed with patient/patient treasury representative the indications, alternatives, benefits and risks of procedure. Some of the possible risks include bleeding, infection, drug reaction, perforation, missed lesions, cardiopulmonary arrest or even , were also reviewed with patient/patient treasury representative. SIGNATURE: Adolfo Matias MD PATIENT NAME: Cody Basurto DATE: September 16, 2021 TIME: 10:01 AM [facility] SURGICAL PATHOLOGYon 022 CASE REPORT [facility] Comment on above: Order Comment: Specimen Type: TISSUE SPE CIMEN Ordering Facility: [facility] Address: [address] [place] [id number] Result Comment: Surg ica Pathology Report Case: [id number] Authorizing Provider: Adolfo Matias MD Collected: 09/16/2021 10:21 AM Ordering Location: [facility] Received: 09/16/2021 11:58 AM Surgical Services Pathologist: Farrah Serrano MD Specimen: COLON BIOPSY, Random Performed By: #### S #### [facility] CLIA [id number] [address] [place] [address] FINAL DIAGNOSIS Normal [facility] Comment on above: Order Comment: Specimen Type: TISSUE SPE CIMEN Ordering Facility: [facility] Address: [address] [place] [address] Result Comment: perfecto Awad, biopsy: - Colonic mucosa with patchy mild hyperplastic epithelial changes. Performed By: #### S #### [facility] CLIA [id number] [address] [place] [address] FINAL PERFORMING LAB Normal [facility] Comment on above: Order Comment: Specimen Type: TISSUE SPE CIMEN Ordering Facility: [facility] Address: [address] [place] [address] Result Comment: Diag nostic interpretation performed at [facility], [address] [place] [address] CLIA# [id number] Audiovisual Lead Technician: Richie Duran M.D. Performed By: #### S #### [facility] CLIA [id number] [address] [place] [address] GROSS DESCRIPTION Normal [facility] Comment on above: Order Comment: Specimen Type: TISSUE SPE CIMEN Ordering Facility: [facility] Address: [address] [place] [address] Result Comment: Addi SHAHID BIOPSY. Received in formalin are multiple pieces of jacinto, soft tissue aggregating to 2.0 x 0.6 x 0.2 cm. Totally submitted in two cassettes. CL September 16, 2021 3:18 PM Gross examination performed at [facility], [address] [place] [address], [place] [address] Performed By: #### S #### [facility] CLIA [id number] [address] [place] [address] [id number] 09-13-2021 [facility] CODY BASURTO ([id number]) 1990 M Date Time Provider Department 09/13/21 CARMELO HERNÁNDEZ [facility] During your visit today, we recorded the following information about you: HARIKA Hernandez 09/13/2021 2:07 PM Signed Which Attempt: X Call Status: Completed X Left Voice Message Surgery Location: [place] Arrival Time:08 Note: Left detailed message on voice mail. [...] Encounter Status:Closed by CARMELO HERNÁNDEZ on 09/13/21 [facility] 08-07-2021 [facility] CODY BASURTO ([id number]) 1990 M Date Time Provider Department 08/07/21 MANUEL RODRÍGUEZ [facility] During your visit today, we recorded the following information about you: Berenice Harmonh Fire[employer] Cutter 08/07/2021 12:02 PM Signed Left message on [...] Cody, rescheduled his colonoscopy to 09/16/[address] [place] [address] Matias. Brenna Oates Ma Allergies [...] Status:Closed by MANUEL RODRÍGUEZ on 08/07/21 Normal [facility] Coding Summary.on 05-13-2017 Coding Summary. CODING DATE: 017 FINAL [facility] STATUS: Home (Routine DC) PAYOR: Commercial [...] PROC APC STAT DESCRIPTION DOCTOR NAME DATE 27658 5073 J1 Excision, tumor, soft Slick Parker DPM 05/06/2017 tissue of foot or toe, subfascial (eg, intramuscular); 1.5 cm or greater LT Left side (used to identify procedures performed on the left side of the body) [address] Anesthesia for Slick Parker DPM 05/06/2017 procedures [...] Valeria Ramirez Date Saved: 05/13/2017 02:15 pm [facility] XR Ankle 2 Views Lefton 04-24 XR [...] Garcia MD Transcribed by: CHLOE Technologist: FAUSTINA [facility] Main OR Intraoperative Recor don 05-07-2017 Main OR Intraoperative Record IntraOp Document Type FT Summary Primary Physician: Slick Parker DPM Finalized Date/Time: 05/07/17 10:09:19 Pt. Name: CODY BASURTO/Sex: 1990 Male Med Rec #: [id number] Physician: Slick Parker DPM Financial #: [id number] Pt. Type: A Room/Bed: AS02/ Admit/Disch: 05/06/17 06:52:00 - 05/06/17 13:15:00 Institution: Case Times FT Entry 1 Patient Times In Room 05/06/17 09:23:00 Out Room 05/06/17 11:19:00 Procedure Times Start 05/06/17 09:46:00 Stop 05/06/17 11:04:00 Anesthesia Times Start 05/06/17 09:23:00 Stop 05/06/17 11:19:00 Last Modified By: Thalia Queen CST 05/06/17 11:23:16 General Comments: 05/07/2017 Chart opened to review and send charges Grzegorz etl bi developer Case Attendance FT Entry 1 Entry 2 Entry 3 Case Attendee Keith PENNINGTON, Lindsay Parker DPM, Slick Matos POLYMERIZATION OVEN TENDER/SABecky Role Performed Anesthesiologist Surgeon - Primary POLYMERIZATION OVEN TENDER/SA Bag Worker Time In 05/06/17 09:23:00 05/06/17 09:25:00 05/06/17 09:23:00 Time Out 05/06/17 11:19:00 05/06/17 11:19:00 05/06/17 11:19:00 Procedure FOOT EXCISION OF SOFT FOOT EXCISION OF SOFT FOOT EXCISION OF SOFT TISSUE MASS(Left) TISSUE MASS(Left) TISSUE MASS(Left) Comments DR AGUERO SUPERVISING - out of room from [id number] dr gerson bernabe Last Modified By: Chrissy RN, Gerardo Lowe RN, Gerardo Cortés RN 05/06/17 11:23:19 05/06/17 11:23:19 05/06/17 11:23:19 Entry 4 Entry 5 Entry 6 Case Attendee Chrissy AVILES, Gerardo Zamora RN, Ella Pace CST Role Performed Cloth Printing Utility Worker - Primary Cloth Printing Utility Worker - Primary Scrub - Primary Time In 05/06/17 09:23:00 05/06/17 09:23:00 05/06/17 09:23:00 Time Out 05/06/17 11:19:00 05/06/17 11:19:00 05/06/17 11:19:00 Procedure FOOT EXCISION OF SOFT FOOT EXCISION OF SOFT FOOT EXCISION OF SOFT TISSUE MASS(Left) TISSUE MASS(Left) TISSUE MASS(Left) Comments out of room from [id number] Last Modified By: Chrissy RN, Kail M ChrissyGerardo landaverde RN, RN, Kail M 05/06/17 11:23:19 05/06/17 11:23:19 05/06/17 11:23:19 Entry 7 Case Attendee Jose RN, CNOR, CRNFA, ONC, Sheryl Role Performed Cloth Printing Utility Worker - Relief Time In 05/06/17 09:23:00 Time Out 05/06/17 10:13:00 Procedure FOOT EXCISION OF SOFT TISSUE MASS(Left) Comments Last Modified By: Gerardo Lowe RN 05/06/17 11:23:19 Perioperative Protocols FT Pre-Care Text: [...] Applicable) PreOp Antibiotic Yes Time Out Lindsay Lee, Given Participants Slick Parker DPM, Sharp POLYMERIZATION OVEN TENDER/SA, Chrissy Pena RN, Kail M, Coy RN, Edison Frost CST, Stephanie Time Out Complete 05/06/17 09:40:00 Outcomes Met? [...] Checked Yes By Gerardo Lowe RN, Lindsay Lee Coy RN, Emily A Outcomes Met? Yes Last Modified By: Emily [...] Met? Yes Yes Yes Last Modified By: [place] RN, A Huntington BeachEmily graham RN, RN, Emily A 05/06/17 08:19:27 05/06/17 08:19:27 [...] RN, George Coy RN, Emily A, George POLYMERIZATION OVEN TENDER, Ella POLYMERIZATION OVEN TENDER, Ella Outcomes Met? Yes Yes Last Modified By: [...] RN Patient Status Stable Skin. Condition Intact, [place], Warm, and Description unchanged from Dry, Other/See Comments previously Airway Maintenance Oxygen in Use? Yes Airway Device Simple Mask Flow Rate 8 L/min Outcomes Met? Yes Last Modified By: Emily Zamora RN 05/06/17 09:51:01 Post-Care Text: The patient is free from signs and symptoms of injury related to transfer/transport General Comments: report given to contract attorneyrn. Clint wasserman rn Dressing/Packing FT Pre-Care Text: [...] safely administered during the perioperative period For [place] please see scanned medication reconcilliation form for medications used at the field during the procedure. Tourniquet FT Pre-Care Text: Implements protective measures to prevent skin/tissue injury due to mechanical sources Entry 1 Tourniquet Type TOURNIQUET [employer] Setting 350 mmHg BLUE 44 X 4 [[id number]][F] Equipment Number D Placement Left Upper Thigh [...] BLANKET MISTRAL AIR Quantity 1 Aid TORSO [[id number]][F] Fluid/[place] Mistral warming system Setting high/43 Body Site Upper anterior torso Last Modified By: Emily Zamora RN 05/06/17 09:51:29 Case Comments Finalized By: Thalia Queen CST Document Signatures Signed By: Gerardo Lowe RN 05/06/17 11:23 Thalia Queen CST 05/07/17 10:09 Normal [facility] Progress Note-Physicianon Progress Note-Physician Patient: CODY BASURTO Age: 26 years Sex: Male : 1990 [...] Problem list: All ProblemsHypertension / SNOMED CT 5926967836 / ConfirmedSoft tissue mass / SNOMED CT 7168509558 / Confirmedleft achillesAsthma / SNOMED CT 454783254 / Confirmed Histories Past Medical History: No active or resolved past medical history items have been selected or recorded. Procedure history: No active procedure history items have been selected or recorded. Social History Social & Psychosocial PrdxbnWedumac33/06/2017 Type: Oral Comment: Patient chews tobacco every [...] Floyd M.D. on April 29, 2017 10:06 [facility] info: [id number], [facility], Outpatient, 04/29/2017 - 04/29/2017 ECG interpretation: SINUS RHYTHM. Plan [employer] of Anesthesiologists (ASA) physical status classification: [...] and lungs, allergic reactions, and .. Normal [facility] Comment on above: Result Comment: Electronically Signed By : Gerson GERBER, Julio\.br\Date and Time Signed: 05/07/17 15:35 EST Inpatient Patient Summaryon 05-06-2017 [facility] Inst[facility] INFORMATION Name: CODY BASURTO PHYSICIANS Admitting Physician: Slick Parker DPMtending Physician: Slick Parker DPM PCP: Salvatore Reveles DO PDischarge Diagnosis: Comment: PATIENT EDUCATION INFORMATIONInstructions:Keith Jaramillo Post Operative Instructions (Custom) (Custom)Medication Leaflets:Follow up:MEDICATION LISTComment: Normal [facility] Main OR PACU I Recordon 04-24 Main OR PACU I Record PACU Phase I Document Type FT Summary Primary Physician: Slick Parker DPM Finalized Date/Time: 05/06/17 12:00:39 Pt. Name: CODY BASURTO /Sex: 1990 Male Med Rec #: [id number] Physician: Slick Parker DPM Financial #: [id number] Pt. Type: A Room/Bed: [facility]/ Admit/Disch: 05/06/17 06:52:46 - Institution: Case [...] By: Beverly Ellis RN 05/06/17 12:00 Normal [facility] Main OR Preoperative Recordo n 05-06-2017 Cholesterol PreOp Document Type FT Summary Primary Physician: Slick Parker DPM Finalized Date/Time: 05/06/17 09:51:55 Pt. Name: SBCODY/Sex: 1990 Male Med Rec #: [id number] Physician: Slick Parker DPM Financial #: [id number] Pt. Type: A Room/Bed: [facility]/ Admit/Disch: 05/06/17 06:52:46 - Institution: Case [...] By: Emily Zamora RN 05/06/17 09:51 Normal [facility] Operative Reporton --201 7 Operative Report Date of Surgery: 05/06/2017SURGEON: [...] number if any problems arise, otherwise return [facility] in one week for his first postoperative visit.Slick Parker D.P.M.aekDictated: 05/06/2017 #[id number]: 05/06/2017 #[id number]: Slick Parker D.P.M. [facility] Comment on above: Result Comment: Electronically Signed By : Slick Parker DPM\.br\Date and Time Signed: 05/06/17 12:33 EST Patient Education - Texton 1 07-07-2016 Patient Education - Text Patient Education Materials Follows:[place], [place] DPM, FACFASPOST OPERATIVE INSTRUCTIONSKeep bandage [...] questions, feel free to call the doctor at:[phone] or [phone] Parker paged. _ Patient signature Date Dr. Slick Parker DPM, FACFAS Date Revised: 07-02 [facility] Progress Note-Physicianon Thyroid stimulating hormone (TSH) Patient: CODY BASURTO Age: 26 years Sex: Male : 1990 [...] 5 ml. Complications: None. Anesthesia type: General. [facility] Comment on above: Result Comment: Electronically Signed By : Slick Parker DPM\.br\Date and Time Signed: 05/06/17 11:13 EST Coding Summary.on 04-30-2017 Coding Summary. CODING DATE: 017 FINAL [facility] STATUS: Home (Routine DC) PAYOR: Commercial [...] Muse Date Saved: 04/30/2017 03:25 pm Normal [facility] CBC w/Indiceson 04-29-2017 Erythrocyte distribution width Auto Ratio (RBC) 14.6 % High 10.9-14.2 [facility] Comment on above: Performed By: #### [id number] ####[facility] [address] [place] [address] Erythrocytes (RBC) 5.3 E12/L Normal 4.3-5.9 [facility] Comment on above: Performed By: #### [id number] ####[facility] [address] [place] [address] Hematocrit (HCT) 45.1 % Normal 37.7-49.0 [facility] Comment on above: Performed By: #### [id number] ####[facility] [address] [place] [address] Hemoglobin mass conc (Bld) 15.3 g/dL Normal 13.5-17.5 [facility] Comment on above: Performed By: #### [id number] ####[facility] [address] [place] [address] MCH 29.0 pg Normal 27.0-34.0 [facility] Comment on above: Performed By: #### [id number] ####[facility] [address] [place] [address] MCHC mass conc (RBC) 33.9 g/dL Normal 31.4-39.3 [facility] Comment on above: Performed By: #### [id number] ####[facility] [address] [place] [address] MCV 85.7 fL Normal 80.0-100.0 [facility] Comment on above: Performed By: #### [id number] ####[facility] [address] [place] [address] Platelet mean volume (PMV) 10.1 fL Normal 6.4-10.8 [facility] Comment on above: Performed By: #### [id number] ####[facility] [address] [place] [address] Platelets 175.0 E9/L Normal 150.0-500. 0 [facility] Comment on above: Performed By: #### [id number] ####[facility] [address] [place] [address] WBC (Leukocytes) 6.5 E9/L Normal 4.0-11.0 [facility] Comment on above: Performed By: #### [id number] ####[facility] [address] [place] [address] XR Chest 2 Viewson 7 XR Chest [...] Vinod Floyd M.D. Transcribed by: pedro Technologist: HH Normal [facility] Vital Signs Date Time Vital Sign Value Performing Clinician Misael jacobs 09-16-2021 11:00-0400 Diastolic blood pressure 63 mm[Hg] Adolfo Matias MD Work Phone: [facility] 09-16-2021 11:00-0400 SaO2% (BldA) [Mass fraction] 96 % Adolfo Matias MD Work Phone: [facility] 09-16-2021 11:00-0400 Systolic blood pressure 123 mm[Hg] Adolfo Matias MD Work Phone: [facility] 09-16-2021 10:35-0400 Body temperature 98.1 [degF] Adolfo Matias MD Work Phone: [facility] 09-16-2021 10:35-0400 Heart rate 99 /min Adolfo Matias MD Work Phone: [facility] 09-16-2021 10:35-0400 Respiratory rate 22 /min Adolfo Matias MD Work Phone: [facility] 09-16-2021 08:49-0400 Body height 193 cm Adolfo Matias MD Work Phone: [facility] 09-16-2021 08:49-0400 Body weight 199.58 kg Adolfo Matias MD Work Phone: [facility] Encounters Encounter Date Encounter Type Care Provider Facility Start: 04-11-2024 End: 04-11-2024 Refill Rosa Edward STORE GROUP MANAGER-COMBINATION PRESSER Work Phone: [facility] Start: 03-17-2024 End: 03-17-2024 Orders Only Rosa Edward STORE GROUP MANAGER-COMBINATION PRESSER Work Phone: [facility] Start: 03-03-2024 End: 03-03-2024 ambulatory [facility] Start: 01-19-2024 End: 01-19-2024 ambulatory ROSA EDWARD [facility] Start: 12-28-2023 ambulatory Mani Davis MD Work Phone: Gastroenterology Comment on above: Thalia Turner Start: 11-03-2023 End: 11-03-2023 ambulatory DANIEL ALEJANDRO Not Available Start: 11-03-2023 End: 11-03-2023 ambulatory DANIEL ALEJANDRO Not Available Start: 08-21-2023 Refill Rosa Abigailcarmencameron shay STORE GROUP MANAGER-COMBINATION PRESSER Work Phone: [facility] Comment on above: Mild intermittent as thma without complication Start: 06-12-2023 End: 06-12-2023 ambulatory [facility] Start: 09-01-2022 End: 09-01-2022 ambulatory ANAHI Segun ARI Facility:[facility] Start: 05-15-2022 End: 05-15-[address] JESSENIA COOK . Facility:[facility] Start: 01-26-2022 Refill Mani Davis MD Work Phone: Gastroenterology Comment on above: Refill Request Start: 09-16-2021 End: 09-16-2021 Orders Only Adolfo Matias MD Work Phone: Gastroenterology Comment on above: Morbid obesity (HCC) (Primary Dx); Snoring; At risk for obstructive sleep apnea Idiopathic colitis [ K52.9] Start: 09-13-2021 Telephone encounter Carmelo Batres [facility] Comment on above: Appointment Refill Request Start: 05-06-2017 End: 05-06-2017 Ambulatory Slick Parker Facility:[facility] Start: 04-29-2017 End: 04-30-2017 Ambulatory Slick Parker Facility:[facility] Procedures Date Procedure Procedure Detail Performing Clinician Start: 2022 Adult depression screening assessment Rosa Edward STORE GROUP MANAGER-COMBINATION PRESSER Work Phone: Start: 09-16-2021 Colon ca scrn not hi rsk ind Mani Davis MD Work Phone: Plan of Treatment Date Care Activity Detail Author Start: 01-18-2025 Adult BMI Screening Adult BMI Screening [facility] Start: 01-18-2025 Tobacco Screening Tobacco Screening [facility] Start: 06-12-2024 Adult BMI Screening Adult BMI Screening [facility] Start: 06-12-2024 Tobacco Screening Tobacco Screening [facility] Start: 01-24-2024 Influenza vaccination [facility] Start: 08-16-2023 Depression Screening Depression Screening [facility] Start: 01-23-2023 Covid-19 Vaccine ( season) Covid-19 Vaccine ( season) [facility] Start: 01-23-2023 Influenza vaccination Influenza Vaccine [facility] Start: 01-23-2022 Influenza vaccination [facility] Start: 09-16-2021 End: 11-16-2021 GLIADIN (DEAMINATED) ABS GLIADIN (DEAMINATED) ABS Lab Routine Chronic diarrhea Expected: 09/16/2021, Expires: 11/16/2021 [facility] Work Phone: Comment on above: Expected: 09/16/2021, Expires: 2 Start: 09-16-2021 End: 11-16-2021 IGA BLD IGA BLD Lab Routine Chronic diarrhea Expected: 09/16/2021, Expires: 11/16/2021 [facility] Work Phone: Comment on above: Expected: 09/16/2021, Expires: 2 Start: 09-16-2021 End: 11-16-2021 Tissue transglutaminase IgA Ab [Units/volume] in Serum TRANSGLUTAMINASE IGA Lab Routine Chronic diarrhea Expected: 09/16/2021, Expires: 11/16/2021 [facility] Work Phone: Comment on above: Expected: 09/16/2021, Expires: 2 Start: 08-14-2010 DTaP,Tdap and Td Vaccines (1 - Tdap) DTaP,Tdap and Td Vaccines (1 - Tdap) [facility] Start: 08-14-2010 Hepatitis B Vaccine (1 of 3 - 19+ 3-dose series) Hepatitis B Vaccine (1 of 3 - 19+ 3-dose series) [facility] Start: 08-14-2010 Urine microalbumin profile [facility] Start: 08-14-2009 Anxiety Screening Anxiety Screening [facility] Start: 08-14-2009 Depression Screening Depression Screening [facility] Start: 08-14-2009 HEPATITIS C SCREENING HEPATITIS C SCREENING [facility] Start: 08-14-2009 Hepatitis C screening Hepatitis C Screening [facility] Start: 08-14-2009 HIV SCREENING HIV SCREENING [facility] Start: 08-14-2009 HIV screening HIV Screening [facility] Start: 2003 Adult depression screening assessment DEPRESSION SCREENING [facility] Start: 08-14-1996 COVID-19 VACCINE (1) COVID-19 VACCINE (1) [facility] Start: 02-15-1992 COVID-19 VACCINE (#1) COVID-19 VACCINE (#1) [facility] Start: 1990 HEPATITIS B (1 of 3 - 3-dose series) HEPATITIS B (1 of 3 - 3-dose series) [facility] Start: 1991 Tobacco Counseling Tobacco Counseling [facility] SURGICAL PATHOLOGY [facility] Work Phone: Comment on above: Release Upon Ordering for 1 Occurrences starting 09/16/2021, 1 completed [facility] Immunizations Immunization Date Immunization Notes Care Provider Reji gunderson 02-06-2004 measles, mumps and rubella virus vaccine Rosa Edward STORE GROUP MANAGER-COMBINATION PRESSER Work Phone: [facility] Payers Date Payer Category Payer Medicaid [employer] [place] [id number] 2019-Present [phone] [place] [id number] Medicaid [id number] 2019 Medicaid [id number] 2019 Medicaid [facility] MEDICA[facility] [id number] 2019 Unknown [facility] [id number] 2019-Present [phone] [address] [address] [place] [address] [id number] 2017 Private Health Insurance [id number] 2017 Private Health Insurance 1990 Unknown [id number] 1990 Unknown [id number] 1990 Unknown [id number] 1990 Unknown [id number] [id number] 1990 Unknown [id number] 1990 Unknown [id number] 1990 Unknown [id number] 1959 Unknown [id number] Social History Date Type Detail Facility [facility] consumption unknown [facility] Start: 1990 Sex Assigned At Male [facility] Start: 09-06-2021 End: 09-16-2021 Exposure to SARS-CoV-2 (event) Not sure [facility] Start: 09-16-2021 End: 06-17-2022 Tobacco smoking status LAIS Never smoked tobacco [facility] Work Phone: Start: 09-16-2021 End: 06-17-2022 Tobacco use and exposure User of smokeless tobacco [facility] Work Phone: History of tobacco use Snuff User [facility] Work Phone: Start: 09-16-2021 Alcohol intake Ex-drinker (finding) [facility] History of tobacco use Chews Tobacco [facility] Start: 06-12-2023 End: 01-19-2024 Alcohol intake Lifetime non-drinker (finding) [facility] Start: 02-28-2022 End: 06-10-2023 History of Social function [facility] Start: 02-28-2022 End: 06-10-2023 Social connection and isolation panel [facility] Do you belong to any clubs or organizations such as advent groups, unions, fraBringme or athletic groups, or school groups? No [facility] Are you now , , , , never or living with a partner? Living with partner [facility] How often to you hav e a drink containing alcohol? Monthly or less [facility] How many standard dr inks containing alcohol do you have on a typical day? 1 or 2 [facility] How often do you hav e 6 or more drinks on 1 occasion? Less than monthly [facility] How hard is it for y ou to pay for the very basics like food, housing, medical care, and heating Not hard at all [facility] Do you feel stress - tense, restless, nervous, or anxious, or unable to sleep at night because your mind is troubled all the time - these days [OSQ] Only a little [facility] Start: 11-07-2019 Education 21 [facility] Start: 06-04-2020 Gender identity Identifies as male gender (finding) [facility] Start: 06-04-2020 Sexual orientation Heterosexual (finding) [facility] Start: 12-28-2014 Sex Male (finding) [facility] Clinical Notes 08-06-2021 to 03-03-2024 Telephone Encounter - Cynthia Alexander RN - 12/28/2023 11:27 AM EDTTelephone Encounter - Cynthia Alexander RN - 12/28/2023 11:27 AM EDTTelephone Encounter - Joana Mckay LPN - 08/21/2023 11:10 AM EDT Note Date & Type Note Facility 03-03-2024 Note Attestation signed by Oz Hansen MD at 03/03/2024 1:12 PM I personally saw and examined the patient on the same date of service as resident/fellow . I discussed the findings and therapeutic plan with the resident/fellow . I agree with the documentation, except for any edits/updates below. Teaching Physician's Revisions RA uncontrolled , he has lost follow up last visit was one year ago, Did not have any improvement with methotrexate Will start Arava I reviewed most recent labs normal LFT, ESR >60 Rheumatology progress note Interval history Since last clinic visit, patient reported stopping methotrexate since it didn't help. He now has swelling and prolonged stiffness in the AM at the hands, hips, and feet, despite NSAIDs and gummies for treatment. No Known Allergies No past medical history [...] Connections: Not on file Intimate Partner Violence: Unknown (07/16/2023) [place] Safety [place] Fear of Current or Ex-Partner: Not on file Emotionally Abused: Not on file Physically Abused: Not on file Sexually Abused: Not on file Physically or Sexually Abused: Not on file Housing Stability: Not on [...] by mouth every morning 30 tablet 0 hydrOXYzine pamoate (Vistaril) 25 mg capsule Take 25 mg by mouth if needed in the morning, at noon, and at bedtime. lithium 300 mg capsule Take 300 mg by mouth in the morning and at bedtime. losartan (Cozaar) 50 mg tablet 1 (one) time each day at the same time. methotrexate 2.5 mg tablet take 6 tablets by mouth every week 24 tablet 1 Nyamyc 100,000 unit/gram powder apply 1 APPLICATION topically to affected area IN THE MORNING and 1 APPLICATION at bedtime OLANZapine (ZyPREXA) 20 mg tablet Take 1 tablet by mouth at bedtime. omeprazole (PriLOSEC) [address] capsule 1 (one) time each day at the same time. OXcarbazepine (Trileptal) 300 mg tablet Take 300 [...] by mouth every morning 30 tablet 0 hydrOXYzine pamoate (Vistaril) 25 mg capsule Take 25 mg by mouth if needed in the morning, at noon, and at bedtime. lithium 300 mg capsule Take 300 mg by mouth in the morning and at bedtime. losartan (Cozaar) 50 mg tablet 1 (one) time each day at the same time. methotrexate 2.5 mg tablet take 6 tablets by mouth every week 24 tablet 1 Nyamyc 100,000 unit/gram powder apply 1 APPLICATION topically to affected area IN THE MORNING and 1 APPLICATION at bedtime OLANZapine (ZyPREXA) 20 mg tablet Take 1 tablet by (more content not included)... [facility] 12-28-2023 Telephone encounter Note Called pt and asked that he call the office and schedule a Virtual appointment with Dr. Davis tomorrow. Last office visit: 10/06/21. Office number left. Cynthia Alexander RN December 28, 2023 11:31 AM [facility] 12-28-2023 Miscellaneous Notes Called pt and asked that he call the office and schedule a Virtual appointment with Dr. Davis tomorrow. Last office visit: 10/06/21. Office number left. Cynthia Alexander RN December 28, 2023 11:31 AM documented in this encounter [facility] 08-21-2023 Miscellaneous Notes [facility] requesting refill of Omeprazole documented in this encounter [facility] 08-21-2023 Telephone encounter Note [facility] requesting refill of Omeprazole [facility] 01-28-2022 Miscellaneous Notes Requested Prescriptions Pending Prescriptions Disp Refills dicyclomine (BENTYL) 20 mg tablet 200 tablet 5 Sig: Take 1 tablet by mouth twice daily. Last Visit: 08/06/21 Last Lab: 09/16/21 Cynthia Alexander RN January 28, 2022 9:36 AM documented in this encounter [facility] 09-16-2021 History and physical note [facility] DAY OF SURGERY SURGICAL SERVICES H&P SERVICE DATE: 09/16/2021 SERVICE TIME: 10:01 AM PRIMARY CARE PHYSICIAN: Salvatore Reveles Sr, MD Subjective CHIEF COMPLAINT: Chronic diarrhea HISTORY OF PRESENT ILLNESS: Mr. Basurto is a 31 year old male who [...] obesity Colonoscopy with biopsies Discussed with patient/patient treasury representative the indications, alternatives, benefits and risks of procedure. Some of the possible risks include bleeding, infection, drug reaction, perforation, missed lesions, cardiopulmonary arrest or even , were also reviewed with patient/patient treasury representative. SIGNATURE: Adolfo Matias MD PATIENT NAME: Cody Basurto DATE: September 16, 2021 TIME: 10:01 AM documented in this encounter [facility] 09-16-2021 Miscellaneous Notes Pending Prescriptions Disp [...] in this encounter [facility] 09-13-2021 Miscellaneous Notes Which Attempt: X 1st 2nd 3rd Call Status: Completed X Left Voice Message Surgery Location: [place] Arrival Time:08 Note: Left detailed message on voice mail. documented in this encounter [facility] 08-06-2021 Note HNO ID: [id number] Author: Mani Davis MD Service: ? Author [...] COVID, and schedule colonoscopy. Mani Davis MD [facility] Evaluation note Diagnosis Morbid obesity (HCC)- Primary Morbid obesity Snoring Other dyspnea and respiratory abnormality At risk for obstructive sleep apnea documented in this encounter [facility] Chronic diarrhea- Primary Diarrhea Idiopathic colitis Other and unspecified noninfectious gastroenteritis and colitis Morbid obesity with BMI of 50.0-59.9, adult (HCC) Morbid obesity Encounter for pre-bariatric surgery counseling and education Other specified counseling documented in this encounter [facility] Mild intermittent asthma without complication [facility] filedocumented in this [facility]Not on filedocumented in this encounter [facility]ructionsNot on filedocumented in this encounter [facility] Narrative* Outpatient Procedure (Routine) - Closed Specialty Diagnoses / Procedures Referred By Contac t Referred To Contact [facility] Diagnoses Idiopathic colitis Procedures COLONOSCOPY SCREENING COLONOSCOPY FLX DX W/COLLJ SPEC WHEN PFRMD Mani Davis MD [address] [place] [address] [facility] [address] [place] [id number] Referral ID Status Reason Start Date Expiration Date V isits Requested Visits Authorized [id number] Closed Auto-Generate d Referral 08/06/2021 08/06/2022 1 1 [facility] Summary Purpose Family History No Family History Records FoundNo Family History Records FoundNo Family History Records FoundNo Family History Records FoundNo Family History Records FoundNo Family History Records FoundNo Family History Records FoundNo Family History Records Found Advance Directives No Advanced Directives Records FoundDocuments on File Type Date Recorded Patient Scorekeeper Expl anation Advance Directive(s) 08/12/2021 1:42 PM Documents on File Type Date Recorded Patient Scorekeeper Expl anation Advance Directive(s) 08/12/2021 1:42 PM Reason for Referral Specialty Diagnoses / Procedures Referred By Contac t Referred To Contact [facility] Diagnoses Morbid obesity (HCC) Snoring At risk for obstructive sleep apnea Procedures CONSULT TO PULM/CRITICAL CARE OFFICE/OUTPATIENT [facility] 60-74 MINUTES Adolfo Matias MD [address] [place] [address] Estefany Hewitt MD [address] [facility] [address] [place] [address] Referral ID Status Reason Start Date Expiration Date Visits Requested Visits Authorized [id number] Authorized PCP Requested Referral 09/16/2021 09/16/2022 1 1 Specialty Diagnoses / Procedures Referred By Contac t Referred To Contact General Surgery Diagnoses Morbid obesity with BMI of 50.0-59.9, adult (HCC) Encounter for pre-bariatric surgery counseling and education Procedures CONSULT TO GENERAL SURGERY OFFICE/OUTPATIENT [facility] 60-74 MINUTES Adolfo Matias MD [address] [place] [address] Richie Wick MD [address] [place] [address] Referral ID Status Reason Start Date Expiration Date Visits Requested Visits Authorized [id number] Authorized PCP Requested Referral 09/16/2021 09/16/2022 1 1 Specialty Diagnoses / Procedures Referred By Contac t Referred To Contact [facility] Diagnoses Idiopathic colitis Procedures COLONOSCOPY SCREENING COLONOSCOPY FLX DX W/COLLJ SPEC WHEN PFMani Dueñas MD [address] [address] [facility] [address] [place] [address] Referral ID Status Reason Start Date Expiration Date V isits Requested Visits Authorized [id number] Closed Auto-Generate d Referral 08/06/2021 08/06/2022 1 1 Additional Source Comments (unrecognized sect ion and content) No Status Records FoundNo Status Records FoundNo Status Records FoundNo Status Records FoundNo Status Records FoundNo Status Records FoundNo Status Records FoundNo Status Records Found INFORMATION SOURCE (unrecogn ized section and content) DATE CREATED AUTHOR 11/17/2017 [facility] DATE CREATED AUTHOR AUTHOR'S ORGANIZ ATION 08/16/2021 [facility] DATE CREATED AUTHOR AUTHOR'S ORGANIZ ATION 09/20/2021 [facility] DATE CREATED AUTHOR AUTHOR'S ORGANIZ ATION 09/02/2022 [facility] DATE CREATED AUTHOR AUTHOR'S ORGANIZ ATION 11/08/2023 [facility] EPIC DATE CREATED AUTHOR AUTHOR'S ORGANIZ ATION 01/21/2024 [facility] DATE CREATED AUTHOR AUTHOR'S ORGANIZ ATION 03/08/20[facility] DATE CREATED AUTHOR AUTHOR'S ORGANIZ ATION 05/12/2024 [facility] Source Comments (unrecognize d section and content) In the event this informatio n is protected by the Federal Confidentiality of Alcohol and Drug Abuse Patient Records regulations: The Federal rules restrict any use of the information to criminally investigate or prosecute any alcohol or drug abuse patient.[facility] the event this information is protected by the Federal Confidentiality of Alcohol and Drug Abuse Patient Records regulations: The Federal rules restrict any use of the information to criminally investigate or prosecute any alcohol or drug abuse patient.[facility] the event this information is protected by the Federal Confidentiality of Alcohol and Drug Abuse Patient Records regulations: The Federal rules restrict any use of the information to criminally investigate or prosecute any alcohol or drug abuse patient.[facility] the event this information is protected by the Federal Confidentiality of Alcohol and Drug Abuse Patient Records regulations: The Federal rules restrict any use of the information to criminally investigate or prosecute any alcohol or drug abuse patient.[facility] the event this information is protected by the Federal Confidentiality of Alcohol and Drug Abuse Patient Records regulations: The Federal rules restrict any use of the information to criminally investigate or prosecute any alcohol or drug abuse patient.[facility] the event this information is protected by the Federal Confidentiality of Alcohol and Drug Abuse Patient Records regulations: The Federal rules restrict any use of the information to criminally investigate or prosecute any alcohol or drug abuse patient.[facility] Reason for Visit (unrecogniz ed section and content) Reason Comments Appointment Reason Onset Date Comments Refill Request 09/13/2021 Reason Onset Date Comments Refill Request 01/26/2022 Reason Comments Med Refill Reason Onset Date Comments Med Refill 04/11/2024 Care Teams (unrecognized sec tion and content) Electrical Panel Builder Relationship Specialty Start Date End Date Salvatore Reveles Sr [address] [place] [address] PCP - General Family Practice 10/24/17 Electrical Panel Builder Relationship Specialty Start Date End Date Salvatore Reveles Sr [address] [facility] [place] [address] PCP - General Family Practice 10/24/17 Electrical Panel Builder Relationship Specialty Start Date End Date Salvatore Reveles Sr. [address] [facility] [place] [address] PCP - General Family Practice 10/24/17 Electrical Panel Builder Relationship Specialty Start Date End Date Salvatore Reveles Sr [address] [facility] [place] [address] PCP - General Family Practice 10/24/17 Electrical Panel Builder Relationship Specialty Start Date End Date Salvatore Reveles Sr. [address] [facility] [place] [address] PCP - General Family Practice 10/24/17 Electrical Panel Builder Relationship Specialty Start Date End Date SchRosa escobar APRN-[facility] [address] [place] [address] PCP - General Family Medicine 11/29/19 Electrical Panel Builder Relationship Specialty Start Date End Date Salvatore Reveles SrToya PCP - General Family Medicine 10/24/17 Electrical Panel Builder Relationship Specialty Start Date End Date Rosa [facility] [address] [place] [address] PCP - [facility] 11/29/19 Electrical Panel Builder Relationship Specialty Start Date End Date Rosa Edward [facility] [address] [place] [address] PCP - [facility] 11/29/19 FOR RECORDS PERTAINING TO PATIENTS WHO ARE [...] BE BASED ON THE PRIMARY CLINICAL RECORDS. [employer] [facility]. provides no warranty or guarantee of the accuracy or completeness of information in this document.
--- NOTE | 2024-05-16 09:41 | ED_ITS ---
HPI HPI - General Adult General Chief complaint: Extremity Problem, Nontraumatic Stated complaint: BLEED Time Seen by Provider: 05/16/24 09:15 History of Present Illness HPI narrative: Patient is a 33-year-old male who is presenting to the ER today with chief com plaint of bleeding from chronic right heel wounds/dry skin/calluses. Patient came in by EMS, patient was at work, and patient believes that he accidentally kicked one of the boxes with his heel. Patient was having a hard time putting his work shoes on, so he is wearing crocs at work. Patient said he backed up into a box possibly, hit the back of his right heel, that therefore because of bleeding. Bleeding did not stop, so patient called EMS. When patient saw the bleeding, he sat on a chair because he thought he is in a pass out. EMS had a dressing on the right heel when he arrived, there is no active bleeding. Patient is on no blood thinners. No pulsatile bleeding. Patient did not have a syncopal episode. He currently has no headache, chest pain or shortness of breath. No abdominal pain nausea or vomiting. No other signs of trauma. Patient states that he does see a direct service worker in [place], he has an appointment a couple weeks after ears. Patient is not currently seeing wound care. Patient's right heel was cleaned by Lacie AVILES. Patient has multiple vertical cracks in his large right heel that has chronic callus to the area. Patient is not diabetic. Patient has no active bleeding in the ER at this time. Patient does have a cool washcloth on his forehead because he was sweaty for EMS secondary to seeing his blood. All systems are negative except as noted/marked. All systems reviewed and otherwise negative. Nurses note and vital signs reviewed and patient is not hypoxic. General: The patient appears well and in no apparent distress. Patient is resting comfortably on cart. Patient is not toxic, lethargic, or listless Skin: Warm, clammy, no pallor noted. There is no rash noted. No petechiae, purpura. Patient has minimal swelling to the right heel, patient has chronic callus and dry skin to the right here. Patient has 6 vertical cracks in his skin/dry callus that are approximately 1 to 1.5 cm in length. The 1 crack that was bleeding is approximately 2 to 3 mm deep. There is no active bleeding at this time, there never was any pulsatile bleeding that was confirmed by myself with patient. There is no localized erythema, drainage, pus. No signs of abscess, signs acute infection. Head: Normocephalic, atraumatic Eye: Normal conjunctiva, no drainage, EOMI. PERRL Ears, Nose, Mouth, and Throat: oral mucosa is moist. Nares patent. Mouth without vesicles. Cardiovascular: Regular Rate and Rhythm, no murmur, gallop, rub Respiratory: Patient is in no distress, no accessory muscle use, lungs are clear to auscultation, no wheezing, rales or rhonchi Back: non-tender, no CVA tenderness bilaterally to percussion. No CT LS midline pain GI: Morbidly obese, soft, no tenderness Musculoskeletal: Patient has full range of motion of all of the extremities, no motor, sensory, or focal neurological deficits Neurological: A&O x4, normal speech Psychiatric: Cooperative Related Data Home Medications ?Medication ?Instructions ?Recorded ?Confirmed albuterol sulfate 2.5 mg/3 mL 2.5 mg inhalation Q4H PRN 05/16/24 05/16/24 (0.083 %) solution for nebulization shortness of breath or wheezing albuterol sulfate 90 mcg/actuation 2 inh inhalation Q4H PRN shortness 05/16/24 05/16/24 aerosol inhaler of breath or wheezing allopurinol 100 mg tablet 200 mg PO QAM 05/16/24 05/16/24 amlodipine 10 mg tablet 10 mg PO DAILY 05/16/24 05/16/24 budesonide-formoterol HFA 160 2 inh inhalation Q12H 05/16/24 05/16/24 mcg-4.5 mcg/actuation aerosol inhaler (Symbicort) gabapentin 300 mg capsule 600 mg PO TID 05/16/24 05/16/24 leflunomide 20 mg tablet 20 mg PO QAM 05/16/24 05/16/24 losartan 50 mg tablet 50 mg PO QAM 05/16/24 05/16/24 omeprazole 40 mg capsule,delayed 40 mg PO QAM 05/16/24 05/16/24 release tiotropium bromide 1.25 2 inh inhalation Q24H 05/16/24 05/16/24 mcg/actuation mist for inhalation (Spiriva Respimat) Allergies Allergy/AdvReac Type Severity Reaction Status Date / Time No Known Drug Allergies Allergy Verified 05/16/24 08:43 Opioid HPI Opioid Management Most Recent Opioid Data: No Data to Display PFSH PFSH Social History Little interest or pleasure in doing things: not at all Feeling down, depressed, or hopeless: not at all Exam Constitutional Vital Signs, click to edit/add: Last Vital Signs Temp 97.6 F 05/16/24 08:40 Pulse 70 05/16/24 08:54 Resp 18 05/16/24 08:40 BP 103/58 05/16/24 08:40 Pulse Ox 95 05/16/24 08:40 O2 Del Method Room Air 05/16/24 08:40 Course Vital Signs Vital signs: Vital Signs Temperature 97.6 F 05/16/24 08:40 Pulse Rate 75 05/16/24 08:40 Respiratory Rate 18 05/16/24 08:40 Blood Pressure 103/58 05/16/24 08:40 Pulse Oximetry 95 05/16/24 08:40 Oxygen Delivery Method Room Air 05/16/24 08:40 Temperature 97.6 F 05/16/24 08:40 Pulse Rate 70 05/16/24 08:54 Respiratory Rate 18 05/16/24 08:40 Blood Pressure 103/58 05/16/24 08:40 Pulse Oximetry 95 05/16/24 08:40 Oxygen Delivery Method Room Air 05/16/24 08:40 Medical Decision Making MDM Narrative Medical decision making narrative: 5 minutes was spent on wound care education with patient. Patient has not follow-up with a wound care clinic. Patient has seen podiatry, he has another appointment coming up around June 05. Patient's wound was cleaned by Lacie AVILES, please see her notes. Patient had bacitracin, Xeroform, dry dressing in place. If bleeding starts again, patient was educated on pressure for 10 minutes of bleeding starts again. Patient was educated on multiple things he can put on his wounds to help with the healing, along with seeing podiatry and seeing wound care. No questions at discharge. Discharge Plan Discharge Chief Complaint: Extremity Problem, Nontraumatic Clinical Impression: Open wound of right heel Patient Disposition: Home, Self-Care Time of Disposition Decision: 09:36 Condition: Fair Mode of Transportation: Private Vehicle Prescriptions / Home Meds: No Action amlodipine 10 mg tablet 10 mg PO DAILY allopurinol 100 mg tablet 200 mg PO QAM albuterol sulfate 90 mcg/actuation HFA aerosol inhaler 2 inh INHALATION Q4H PRN (Reason: shortness of breath or wheezing) albuterol sulfate 2.5 mg /3 mL (0.083 %) solution for nebulization 2.5 mg inhalation Q4H PRN (Reason: shortness of breath or wheezing) budesonide-formoterol [Symbicort] 160-4.5 mcg/actuation HFA aerosol inhaler 2 inh INHALATION Q12H gabapentin 300 mg capsule 600 mg PO TID leflunomide 20 mg tablet 20 mg PO QAM losartan 50 mg tablet 50 mg PO QAM omeprazole 40 mg capsule,delayed release(DR/EC) 40 mg PO QAM Spiriva Respimat 1.25 mcg/actuation mist 2 inh INHALATION Q24H Print Language: Angolan Instructions: Wound Healing and Your Diet (ED), Acute Wounds (ED) Additional Instructions: Wound care pamphlet has been given to you, call today to make a follow-up appointment. See your direct service worker as scheduled in early May as well. Use topical antibiotic ointment 3-4 times a day for the next 10 to 14 days to help decrease potential infection and help healing. Use topical A&E ointment, Aquaphor, pink salve, bag balm, or other lotions to help with healing as well. If bleeding starts, apply pressure for 10 minutes as discussed at bedside and bleeding will stop. Return back to the ER for any other acute concerns. Referrals: Jessica Edward NP [Primary Care Provider] - 1 week Discharge Date/Time: 05/16/24 09:51
[2024-05-16] MEDS: BACITRACIN 0.9 GM PACKET 1 PACKET TOPICAL (09:49)
== END 2024-05-16 09:51 | disposition home or self-care (01) ==
PROVIDERS: Emergency Provider Emergency Medicine; PCP Nurse Practitioner Family
DX: S91.301A Unspecified open wound, right foot, initial encounter (principal); X58.XXXA Exposure to other specified factors, initial encounter; E66.01 Morbid (severe) obesity due to excess calories; Z68.43 Body mass index [BMI] 50.0-59.9, adult
CPT/HCPCS: 99283

== ENCOUNTER 2024-05-30 14:45 | Emergency (ER) | payer OTHER, SELFPAY ==
[2024-05-30 14:49] VITALS: BP 179/86; PULSE 97; TEMP 36.6; O2SAT 98; BMI 54.8
[2024-05-30] MEDS: LIDOCAINE HCL 1% 100 MG/10 ML MDV INJ (16:10)
[2024-05-30] MEDS: LIDOCAINE HCL 1%-EPINEPHRINE 1:100,000 20 ML MDV INJ (16:20)
[2024-05-30 16:31] LABS: Basophils Percent Auto 0.3 % (0.2-2.0); Eosinophils Absolute Auto 0.1 10^3/uL (0.0-0.7); Eosinophils Percent Auto 1.5 % (0.9-7.0); Hematocrit 37.9 % (42.0-54.0); Hemoglobin 11.9 g/dL (14.0-18.0); Immature Granulocytes Abs Auto 0.03 10^3/uL (0.00-0.03); Immature Granulocytes Pct Auto 0.5 % (0.0-0.5); Lymphocytes Absolute Auto 1.8 10^3/uL (1.2-3.8); Lymphocytes Percent Auto 28.4 % (20.5-60.0); Mean Corpuscular HGB Conc 31.4 g/dL (29.9-35.2); Mean Corpuscular Hemoglobin 27.5 pg (25.9-34.0); Mean Corpuscular Volume 87.7 fL (80.0-94.0); Mean Platelet Volume 12.3 fL (9.5-13.5); Monocytes Absolute Auto 0.5 10^3/uL (0.3-0.8); Monocytes Percent Auto 8.3 % (1.7-12.0); Neutrophils Absolute Auto 3.9 10^3/uL (1.4-6.5); Platelet Count 244 10^3/uL (150-450); Red Blood Count 4.32 10^6/uL (4.70-6.10); Red Cell Distribution Width 14.6 % (11.0-15.0); White Blood Count 6.5 10^3/uL (4.0-11.0)
[2024-05-30 16:42] LABS: Anion Gap 9.6; BUN Creatinine Ratio 7.6; Calcium 8.7 mg/dL (8.5-10.1); Carbon Dioxide 28.2 mmol/L (21.0-32.0); Chloride 106 mmol/L (98-107); Estimated GFR (African America >60 (>=60 mL/min/1.73m^2); Estimated GFR (Non-African Ame >60 (>=60 mL/min/1.73m^2); Glucose 102 mg/dL (74-106); Potassium 3.8 mmol/L (3.5-5.1); Sodium 140 mmol/L (136-145)
--- NOTE | 2024-05-30 16:45 | PM.CN ---
Consult Note: [facility] Data of Consult Consult date: 05/30/24 Requesting Physician: Dr. Rob Primary Care Provider: Jessica Edward NP Consult Narrative Narrative: Patient is a 33-year-old male who earlier today was walking outside and noticed blood in the snow then realized he had a wound on his right lateral ankle which was oozing. He does not recall injuring himself. He was brought to the emergency department and was evaluated by Dr. Rob who injected the area with local anesthetic (lidocaine with epinephrine) and held pressure. Unfortunately this did not seem to slow the persistent oozing. I was called for any other recommendation. cc:: CC: PFSH PFSH Social History Little interest or pleasure in doing things: not at all Feeling down, depressed, or hopeless: not at all Meds Home Medications and Allergies Home Medications ?Medication ?Instructions ?Recorded ?Confirmed ?Type albuterol sulfate 2.5 mg/3 mL 2.5 mg inhalation Q4H PRN 05/16/24 05/16/24 History (0.083 %) solution for nebulization shortness of breath or wheezing albuterol sulfate 90 mcg/actuation 2 inh inhalation Q4H PRN shortness 05/16/24 05/16/24 History aerosol inhaler of breath or wheezing allopurinol 100 mg tablet 200 mg PO QAM 05/16/24 05/16/24 History amlodipine 10 mg tablet 10 mg PO DAILY 05/16/24 05/16/24 History budesonide-formoterol HFA 160 2 inh inhalation Q12H 05/16/24 05/16/24 History mcg-4.5 mcg/actuation aerosol inhaler (Symbicort) gabapentin 300 mg capsule 600 mg PO TID 05/16/24 05/16/24 History leflunomide 20 mg tablet 20 mg PO QAM 05/16/24 05/16/24 History losartan 50 mg tablet 50 mg PO QAM 05/16/24 05/16/24 History omeprazole 40 mg capsule,delayed 40 mg PO QAM 05/16/24 05/16/24 History release tiotropium bromide 1.25 2 inh inhalation Q24H 05/16/24 05/16/24 History mcg/actuation mist for inhalation (Spiriva Respimat) cephalexin 500 mg capsule 500 mg PO TID 7 days #21 caps 05/30/24 Rx Allergies Allergy/AdvReac Type Severity Reaction Status Date / Time No Known Drug Allergies Allergy Verified 05/30/24 14:49 Exam Narrative Exam Narrative: Small wound on lateral right ankle with steady oozing of blood. Bleeding was not pulsatile. Local sensation was altered due to the anesthetic. Varicose veins visible over the lateral foot and ankle. Palpation reveals no evidence of fluid collection. No signs of infection. Constitutional Vital Signs, click to edit/add: Last Vital Signs Temp 98 F 05/30/24 14:49 Pulse 97 H 05/30/24 14:49 Resp 20 05/30/24 14:49 BP 179/86 H 05/30/24 14:49 Pulse Ox 98 05/30/24 14:49 Results Labs Labs: Short CBC 05/30/24 Range/Units 16:23 WBC 6.5 (4.0-11.0) 10^3/uL Hgb 11.9 L (14.0-18.0) g/dL Hct 37.9 L (42.0-54.0) % Plt Count 244 (150-450) 10^3/uL Assessment and Plan Assessment and Plan (1) Open wound of right heel: (2) Varicose veins of right ankle: Plan Patient was seen and evaluated at bedside. Findings are consistent with ruptured varicose vein. After verbal consent was obtained the skin and wound were cleansed with Betadine then 2 trauma sutures were placed perpendicular to the direction of bleeding and beneath the skin 1 cm & 2 cm distal to the wound, respectively. Once the sutures were tied the bleeding stopped and was observed for several minutes no evidence of internal bleeding or fluid collection was noted and the wound remained visible and open. A temporary pressure dressing with Xeroform, 4 x 4's and an Esmarch were then applied and left in place for 13 minutes. Upon removal there was no bleeding and no evidence of fluid collection or hematoma. I recommended a multilayer compression dressing to be applied with Xeroform, 4 x 4's, Webril Eder Webril Eder. Patient should limit weightbearing and keep his limb elevated and iced at 15-minute intervals. Dr. Rob will rx antibiotics and discharge patient assuming bleeding does not recur. He should remain off of work until he follows up with me later this week. Tomorrow patient may remove the dressing and wash the area with soap and water then reapply a similar multilayer dressing.
--- NOTE | 2024-05-30 16:47 | ED_ITS ---
HPI - Wound/Laceration General Chief Complaint: Wound/Laceration Stated Complaint: bleeding Time Seen by Provider: 05/30/24 15:11 Source: patient Mode of arrival: ambulance Limitations: no limitations History of Present Illness HPI narrative: 33-year-old male presents for bleeding from a wound on his right lateral ankle. He has had a wound there for more than a week. About a week ago he was seen here and at that time his bleeding but the bleeding was controlled without sutures and he was sent home. He has not followed up in the wound care clinic thus far. It started bleeding heavier today and he was brought in by paramedics who had placed a pressure dressing on it. He does not take blood thinners. Related Data Home Medications ?Medication ?Instructions ?Recorded ?Confirmed albuterol sulfate 2.5 mg/3 mL 2.5 mg inhalation Q4H PRN 05/16/24 05/16/24 (0.083 %) solution for nebulization shortness of breath or wheezing albuterol sulfate 90 mcg/actuation 2 inh inhalation Q4H PRN shortness 05/16/24 05/16/24 aerosol inhaler of breath or wheezing allopurinol 100 mg tablet 200 mg PO QAM 05/16/24 05/16/24 amlodipine 10 mg tablet 10 mg PO DAILY 05/16/24 05/16/24 budesonide-formoterol HFA 160 2 inh inhalation Q12H 05/16/24 05/16/24 mcg-4.5 mcg/actuation aerosol inhaler (Symbicort) gabapentin 300 mg capsule 600 mg PO TID 05/16/24 05/16/24 leflunomide 20 mg tablet 20 mg PO QAM 05/16/24 05/16/24 losartan 50 mg tablet 50 mg PO QAM 05/16/24 05/16/24 omeprazole 40 mg capsule,delayed 40 mg PO QAM 05/16/24 05/16/24 release tiotropium bromide 1.25 2 inh inhalation Q24H 05/16/24 05/16/24 mcg/actuation mist for inhalation (Spiriva Respimat) Previous Rx's ?Medication ?Instructions ?Recorded cephalexin 500 mg capsule 500 mg PO TID 7 days #21 caps 05/30/24 Allergies Allergy/AdvReac Type Severity Reaction Status Date / Time No Known Drug Allergies Allergy Verified 05/30/24 14:49 Review of Systems ROS Narrative A ten point review of systems is negative except as noted above. PFSH PFSH Social History Little interest or pleasure in doing things: not at all Feeling down, depressed, or hopeless: not at all Exam Narrative Exam Narrative: Nurses note and vital signs reviewed and patient is not hypoxic. General: The patient appears in no apparent distress. Patient is resting comfortably on cart. Skin: Warm, dry, no pallor noted. There is no rash noted. Head: Normocephalic, atraumatic Eye: Normal conjunctiva, no drainage Ears, Nose, Mouth, and Throat: oral mucosa is moist. Nares patent. Cardiovascular: Regular Rate and Rhythm Respiratory: Patient is in no distress, no accessory muscle use, lungs are clear to auscultation, no wheezing, rales or rhonchi Back: non-tender GI: Soft and nontender Musculoskeletal: He has a pressure dressing around his right ankle. Upon removing it there is an ulceration type area on the lateral malleolus. There is a large amount of continuous bleeding coming from that wound. It is controlled with pressure and is not pulsatile. Neurological: A&O, normal speech Psychiatric: Cooperative Constitutional Vital Signs, click to edit/add: Last Vital Signs Temp 98 F 05/30/24 14:49 Pulse 86 05/30/24 16:49 Resp 18 05/30/24 16:49 BP 129/79 05/30/24 16:49 Pulse Ox 98 05/30/24 16:49 Course Vital Signs Vital signs: Vital Signs Temperature 98 F 05/30/24 14:49 Pulse Rate 97 H 05/30/24 14:49 Respiratory Rate 20 05/30/24 14:49 Blood Pressure 179/86 H 05/30/24 14:49 Pulse Oximetry 98 05/30/24 14:49 Temperature 98 F 05/30/24 14:49 Pulse Rate 86 05/30/24 16:49 Respiratory Rate 18 05/30/24 16:49 Blood Pressure 129/79 05/30/24 16:49 Pulse Oximetry 98 05/30/24 16:49 MDM - Wound/Laceration MDM Narrative Medical decision making narrative: I spoke to Dr. Montgomery who has seen the patient here in the emergency department and has controlled the bleeding. Please see his note Follow-up was arranged for the patient in his office and the patient is placed on prophylactic Keflex. Differential Diagnosis Differential diagnosis: Likely laceration and other (Bleeding varicose vein) Lab Data Attestation: I reviewed the patient's lab results. Labs: Lab Results 05/30/24 Range/Units 16:23 WBC 6.5 (4.0-11.0) 10^3/uL RBC 4.32 L (4.70-6.10) 10^6/uL Hgb 11.9 L (14.0-18.0) g/dL Hct 37.9 L (42.0-54.0) % MCV 87.7 (80.0-94.0) fL MCH 27.5 (25.9-34.0) pg MCHC 31.4 (29.9-35.2) g/dL RDW 14.6 (11.0-15.0) % Plt Count 244 (150-450) 10^3/uL MPV 12.3 (9.5-13.5) fL Neut % (Auto) 61.0 (43.0-75.0) % Lymph % (Auto) 28.4 (20.5-60.0) % Powell % (Auto) 8.3 (1.7-12.0) % Eos % (Auto) 1.5 (0.9-7.0) % Baso % (Auto) 0.3 (0.2-2.0) % Neut # (Auto) 3.9 (1.4-6.5) 10^3/uL Lymph # (Auto) 1.8 (1.2-3.8) 10^3/uL Powell # (Auto) 0.5 (0.3-0.8) 10^3/uL Eos # (Auto) 0.1 (0.0-0.7) 10^3/uL Baso # (Auto) 0.0 (0.0-0.1) 10^3/uL Abs Immat Gran (auto) 0.03 (0.00-0.03) 10^3/uL Imm/Tot Granulo (auto) 0.5 (0.0-0.5) % Sodium 140 (136-145) mmol/L Potassium 3.8 (3.5-5.1) mmol/L Chloride 106 (98-107) mmol/L Carbon Dioxide 28.2 (21.0-32.0) mmol/L Anion Gap 9.6 BUN 7.0 (7.0-18.0) mg/dL Creatinine 0.92 (0.70-1.30) mg/dL Est GFR ( Amer) >60 (>=60 mL/min/1.73m^2) Est GFR (Non-Af Amer) >60 (>=60 mL/min/1.73m^2) BUN/Creatinine Ratio 7.6 Glucose 102 (74-106) mg/dL Calcium 8.7 (8.5-10.1) mg/dL Discharge Plan Discharge Chief Complaint: Wound/Laceration Clinical Impression: Open wound of right ankle Patient Disposition: Home, Self-Care Time of Disposition Decision: 16:59 Condition: Good Mode of Transportation: Private Vehicle Prescriptions / Home Meds: New cephalexin 500 mg capsule 500 mg PO TID 7 Days Qty: 21 0RF No Action amlodipine 10 mg tablet 10 mg PO DAILY allopurinol 100 mg tablet 200 mg PO QAM albuterol sulfate 90 mcg/actuation HFA aerosol inhaler 2 inh INHALATION Q4H PRN (Reason: shortness of breath or wheezing) albuterol sulfate 2.5 mg /3 mL (0.083 %) solution for nebulization 2.5 mg inhalation Q4H PRN (Reason: shortness of breath or wheezing) budesonide-formoterol [Symbicort] 160-4.5 mcg/actuation HFA aerosol inhaler 2 inh INHALATION Q12H gabapentin 300 mg capsule 600 mg PO TID leflunomide 20 mg tablet 20 mg PO QAM losartan 50 mg tablet 50 mg PO QAM omeprazole 40 mg capsule,delayed release(DR/EC) 40 mg PO QAM Spiriva Respimat 1.25 mcg/actuation mist 2 inh INHALATION Q24H Print Language: Macedonian Instructions: Wound Healing and Your Diet (ED), Acute Wounds (ED) Referrals: Jessica Edward NP [Primary Care Provider] - 1 week Procedures ED Procedure Instructions Procedures Procedures: The wound was infiltrated with first lidocaine and then lidocaine with epinephrine resulting in complete skin anesthesia. Attempt was made to place suture but large amount of bleeding was present. At that point pressure was placed.
[2024-05-30 16:49] VITALS: BP 129/79; PULSE 86; O2SAT 98
== END 2024-05-30 17:33 | disposition home or self-care (01) ==
PROVIDERS: Emergency Provider Emergency Medicine; PCP Nurse Practitioner Family
DX: I83.891 Varicose veins of right lower extremity with other complications (principal); S91.301A Unspecified open wound, right foot, initial encounter; X58.XXXA Exposure to other specified factors, initial encounter
CPT/HCPCS: 12001; 36415; 80048; 85025; 99283

== ENCOUNTER 2024-06-03 09:34 | Outpatient (OUT) | payer OTHER, SELFPAY | END 2024-06-03 09:35 | disposition home or self-care (01) | LOC: WC 09:35 | PROVIDERS: PCP Nurse Practitioner Family; Visit Provider Podiatrist Foot & Ankle Surgery | DX: I87.311 Chronic venous hypertension (idiopathic) with ulcer of right lower extremity (principal); L97.312 Non-pressure chronic ulcer of right ankle with fat layer exposed | CPT/HCPCS: G0463 ==

== ENCOUNTER 2024-06-14 09:58 | Outpatient (OUT) | payer OTHER, SELFPAY ==
--- NOTE | 2024-06-13 08:12 | VEINCLINIC_ITS ---
Vital Signs 06/14/24 10:27 BP 132/64 BP Location Right Radial BP Position Supine BP Cuff Size Large Adult BP Source Manual Cuff Respiration 20 Pulse 83 Pulse Source Monitor Pulse Oximetry (%) 98 Oxygen Delivery Method Room Air Comment The patient's blood pressure is elevated. Varicose Veins Patient is a 33 year old male in this day as a referral from Dr. Montgomery at [facility] secondary to a non-healing spontaneous ulcer to his right lateral ankle measuring 2cm in diameter. Patient c/o bilateral lower leg pain and edema most notable to right ankle area. 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 Patient rates the pain at a 7 on a scale of 1-10. Patient has worn bilateral leg knee high compression stockings for nearly one with a notable difference. Patient has a family history of varicose veins involving his paternal grand mother. Rajat Lopez MD personally performed the services described in this documentation, as scribed by Scott Christian RN in my presence and it is both accurate and complete. Scott Lopez RN, am scribing for, and in the presence of, Dr. Rajat Melchor and in the presence of the patient.. . thigh: bilateral (symptoms most notable to right lower leg), knee: bilateral, calf: bilateral, ankle: bilateral and stark: bilateral aching, burning, dull, sharp and tender 7 2 years Worsened in recent months: Yes standing analgesics, elevating extremities and compression stockings Reports heaviness, limb pain and leg edema History of lower extremity trauma: Yes (Patient broke right ankle 2014) Superficial thrombophlebitis: No Family history of varicose veins: yes Has patient had previous lower extremity venous surgery: No Patient has previously received the following treatment(s) for lower extremity varicose veins: Reports none Does patient have a history of : not applicable Has patient had lower extremity venous scan with relux testing: No Support hose used: Yes Problems walking or doing physical activity: Yes How does it affect you: has to sit down at work due to pain Do you walk much: Yes Do you stand much: Yes Review of Systems ROS Narrative Rajat Lopez MD personally performed the services described in this documentation, as scribed by Scott Christian RN in my presence and it is both accurate and complete. I, Scott Gino RN, am scribing for, and in the presence of, Dr. Rajat Melchor and in the presence of the patient. Status of ROS 10 or more systems reviewed and unremark able except as noted in history and below Cardiovascular Reports: edema Integumentary/Breast Reports: skin pain, skin tenderness, skin swelling, new lesion, non-healing lesion and changes in skin color Neurological Reports: weakness in extremities PFSH [facility] Medical History (Updated 06/14/24 @ 10:22 by Scott Christian) Rheumatoid arthritis ?M06.9 - Rheumatoid arthritis, unspecified (ICD-10) Chronic venous hypertension ?I87.309 - Chronic venous hypertension (idiopathic) without complications of unspecified lower extremity (ICD-10) Ulcer of lower leg associated with varicose veins ?I83.008 - Varicose veins of unspecified lower extremity with ulcer other part of lower leg (ICD-10) ?L97.909 - Non-pressure chronic ulcer of unspecified part of unspecified lower leg with unspecified severity (ICD-10) Hypertension ?I10 - Essential (primary) hypertension (ICD-10) Gout ?M10.9 - Gout, unspecified (ICD-10) Varicose veins of bilateral lower extremities with pain ?I83.813 - Varicose veins of bilateral lower extremities with pain (ICD-10) Surgical History (Updated 06/14/24 @ 10:24 by Scott Christian) H/O total cystectomy ?Z90.6 - Acquired absence of other parts of urinary tract (ICD-10) Family History (Updated 06/14/24 @ 10:24 by Scott Christian) Other Family history of cancer Family history of diabetes mellitus Family history of hypertension Family history of myocardial infarction Family history of stroke Pain due to varicose veins of both lower extremities Social History (Updated 06/14/24 @ 10:25 by Scott Christian) Within the past year, how often did you have a drink containing alcohol: never Score interpretation: A score less than 4 is consistent with normal alcohol consumption. Do you use any of these nicotine containing products: smokeless tobacco Non-prescribed substance use: cannabis (any form) Little interest or pleasure in doing things: not at all Feeling down, depressed, or hopeless: not at all Meds Home Medications and Allergies Home Medications ?Medication ?Instructions ?Recorded ?Confirmed ?Type albuterol sulfate 2.5 mg/3 mL 2.5 mg inhalation Q4H PRN 05/16/24 06/13/24 History (0.083 %) solution for nebulization shortness of breath or wheezing albuterol sulfate 90 mcg/actuation 2 inh inhalation Q4H PRN shortness 05/16/24 06/13/24 History aerosol inhaler of breath or wheezing allopurinol 100 mg tablet 200 mg PO QAM 05/16/24 05/16/24 History amlodipine 10 mg tablet 10 mg PO DAILY 05/16/24 06/13/24 History budesonide-formoterol HFA 160 2 inh inhalation Q12H 05/16/24 06/13/24 History mcg-4.5 mcg/actuation aerosol inhaler (Symbicort) gabapentin 300 mg capsule 600 mg PO TID 05/16/24 06/13/24 History leflunomide 20 mg tablet 20 mg PO QAM 05/16/24 06/13/24 History losartan 50 mg tablet 50 mg PO QAM 05/16/24 06/13/24 History omeprazole 40 mg capsule,delayed 40 mg PO QAM 05/16/24 06/13/24 History release tiotropium bromide 1.25 2 inh inhalation Q24H 05/16/24 06/13/24 History mcg/actuation mist for inhalation (Spiriva Respimat) cephalexin 500 mg capsule 500 mg PO TID 7 days #21 caps 05/30/24 06/13/24 Rx nystatin 100,000 unit/gram topical 1 applic topical DAILY 06/13/24 06/13/24 History powder (Nystop) Allergies Allergy/AdvReac Type Severity Reaction Status Date / Time No Known Drug Allergies Allergy Verified 05/30/24 14:49 Exam Narrative Exam Narrative: 2cm in diameter wound noted to right lateral ankle with sutures intact Rajat Lopez MD personally performed the services described in this documentation, as scribed by Scott Christian RN in my presence and it is both accurate and complete. Scott Lopez RN, am scribing for, and in the presence of, Dr. Rajat Melchor and in the presence of the patient. Constitutional Documenting provider has reviewed patient's vital signs: yes Common normals: oriented x3 Nutritional appearance: overweight Lymph Lymphatic: no lymphedema noted Cardio Peripheral pulses: posterior tibial pulses present and dorsalis pedis pulses present Extremity Common normals: normal capillary refill General: calf tenderness and edema Right lower extremity: lower leg Right lower leg: inspection and palpation Left lower extremity: lower leg Left lower leg: inspection and palpation Neuro Common normals: oriented x3 Results Imaging Venous US: Radiologist's impression: Bilateral leg reflux u/s reveals abnormally dilated and incompetent bilateral leg great saphenous veins along with bilateral leg branch saphenous truncal tributary varicosities. Rajat Lopez MD personally performed the services described in this documentation, as scribed by Scott Christian RN in my presence and it is both accurate and complete. Scott Lopez RN, am scribing for, and in the presence of, Dr. Rajat Melchor and in the presence of the patient.. Assessment and Plan Assessment and Plan (1) Varicose veins of bilateral lower extremities with pain: Plan Patient is to continue use of bilateral leg knee high compression stockings, exercise, rest, and elevation. Patient to return for EVLT of right GSV followed by left GSV followed by microfoam chemical ablation bilateral leg branch saphenous varicosities. Rajat Lopez MD personally performed the services described in this documentation, as scribed by Scott Christian RN in my presence and it is both accurate and complete. Scott Lopez RN, am scribing for, and in the presence of, Dr. Rajat Melchor and in the presence of the patient.
--- NOTE | 2024-06-13 08:38 | P.DS_ITS ---
Discharge Plan Discharge Disposition: Home, Self-Care Plan of Treatment: EVLT of right GSV followed by left GSV followed by microfoam chemical ablation bilateral leg branch saphenous varicosities Print Language: [place] Discharge Date/Time: 06/14/24 15:33
--- NOTE | 2024-06-14 10:09 | VEIN_ITS ---
Patient Name: RYAN BASURTO MR#: [id number] : 1990 Exam Date: 06/14/2024 Ordering Doctor: DR. WILIAM DiazPGraciela RADIOLOGY REPORT PROCEDURE: [facility] - OFFICE VISIT INITIAL COMPARISON: None. PROGRESS NOTES: [age] year old male who presents with a 2 year history of lower extremity pain, swelling, dilated bulging veins, aching, heaviness, with recent spontaneous lateral right ankle wound. The patient's right leg symptoms are worse than the left. There has been a progression of symptoms over time. This increases with prolonged leg dependency. The patient describes an improvement with rest and elevation. The patient denies any signs and symptoms to suggest arterial ischemia. The patient describes a family history varicose veins, cancer, hypertension, diabetes, stroke. The patient has drinking and smoking history of : None. Patient has a past medical history significant for hypertension, rheumatoid arthritis, gout. The patient denies a history of deep venous thrombus or pulmonary embolus. See separate history and physical for medication list. No prior treatment for varicose or spider veins. Current/long-term use of compression stockings. After review of nurse notes, history and physical exam I discussed at length the pathophysiology of venous hypertension and possible treatments, therapies and strategies available. We discussed at length the importance of elevating the lower extremities above the level of the heart, increased physical activity and compression stocking use. Ultrasound venous reflux study performed today was discussed at length with the patient. The report demonstrates marked dilation and incompetency of the great saphenous veins bilaterally with associated incompetent branch saphenous varicosities.. PHYSICAL EXAM: The right leg demonstrates scattered varicosities, no spider veins, right lateral ankle wound/ ulceration, moderate edema, no skin discoloration. The left leg demonstrates scattered varicosities, no spider veins, no ulceration, moderate edema, no skin discoloration. Both thighs, legs and feet were symmetrically warm to the touch. Good posterior tibial and dorsalis pedis pulses were present bilaterally. VEIN/[facility] Facility EST Comprehensive IMPRESSION: 1. Bilateral extremity venous insufficiency 2. Bilateral lower extremity varicose veins 3. Bilateral lower extremity subcutaneous edema 4. No flow significant arterial disease 5. CEAP: C6, EC, AP, NV PLAN: 1. Continued use of compression stockings 2. Elevated legs and increased physical activity symptomatic relief 3. Endovenous laser ablation of right great saphenous vein, left great saphenous vein. 4. Microfoam chemical ablation of incompetent branch saphenous varicosities bilaterally. Nurse notes, history and physical were reviewed and confirmed, see attached forms. The nurse was present throughout the physical exam and consultation Dictated by: Rajat Melchor M.D. on 06/14/2024 at 11:16 Approved by: Rajat Melchor M.D. on 06/14/2024 at 11:26
--- NOTE | 2024-06-14 10:10 | VEIN_ITS ---
Patient Name: RYAN BASURTO MR#: [id number] : 1990 Exam Date: 06/14/2024 Ordering Doctor: DR. WILIAM DiazPGraciela RADIOLOGY REPORT PROCEDURE: VC EXT VENOUS REFLUX RASHAWN LMTD COMPARISON: None. INDICATIONS: Pain due to varicose veins of bilateral legs I83.813 TECHNIQUE: Duplex imaging of the lower extremity to assess the deep and superficial venous system for the presence of deep or superficial venous incompetence and to document the location and severity of disease. The study includes evaluation of the great saphenous vein (GSV), anterior accessory saphenous vein (AASV) and small saphenous vein (SSV). Patient scanned in reverse Trendelenburg and standing. FINDINGS: RIGHT LOWER EXTREMITY: Saphenofemoral Junction Reflux: Yes 15.4mm 3.9 sec GSV: Diam (mm) Reflux/ Time (sec) Proximal Thigh 8.5 Yes 3.5 Mid Thigh 8.9 Yes 2.8 Distal Thigh 9.1 Yes 3.0 Prox Calf 6.4 Yes 1.3 Mid Calf 2.1 Yes 0.8 Saphenopopliteal Junction Reflux: 3.8mm No SSV: Proximal Calf 2.6 No Mid Calf 4.1 Yes 1.7 AASV: Not present Proximal Thigh Mid Thigh Distal Thigh Thrombi: No acute or chronic thrombus visualized Compressibility: Normal Flow: Normal Preforator: Dist/med calf 8.0mm with 1.7s reflux. Tech Note: Incompetent GSV. Patent varicose vein mid/med calf 6.4mm with 2.0s. Patent varicose vein mid/med thigh 3.2mm with 1.3s reflux. LEFT LOWER EXTREMITY: Saphenofemoral Junction Reflux: Yes 10.2 mm 3.2 sec GSV: Diam (mm) Reflux/Time (sec) Proximal Thigh 7.5 Yes 1.6 Mid Thigh 6.7 Yes 1.8 Distal Thigh 6.3 Yes 2.0 Prox Calf 4.6 Yes 1.2 Mid Calf 1.9 No Saphenopopliteal Junction Relux: 5.4 mm Yes 0.7 SSV: Proximal Calf 2.5 Yes 0.6 Mid Calf 1.6 No AASV: Not present Proximal Thigh Mid Thigh Distal Thigh Thrombi: No acute or chronic thrombus visualied. 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 Mid/med calf 2.4mm with 0s reflux. Tech Note: Incompetent GSV. Patent varicose vein prox/med calf 3.6mm with 1.4s reflux. Patent varicose vein mid/med calf 4.6mm with 3.5s reflux. CONCLUSION: 1. Abnormally dilated and incompetent great saphenous veins bilaterally with associated branch saphenous varicosities. Dictated by: Rajat Melchor M.D. on 06/14/2024 at 11:02 Approved by: Rajat Melchor M.D. on 06/14/2024 at 11:16
[2024-06-14 10:27] VITALS: BP 132/64; PULSE 83; O2SAT 98
== END 2024-06-14 15:33 | disposition home or self-care (01) ==
LOC: VC 09:58
PROVIDERS: PCP Nurse Practitioner Family; Visit Provider Podiatrist Foot & Ankle Surgery
DX: I83.813 Varicose veins of bilateral lower extremities with pain (principal)
CPT/HCPCS: 93970; G0463

== ENCOUNTER 2024-06-14 16:10 | Outpatient (OUT) | payer OTHER, SELFPAY | END 2024-06-14 16:11 | disposition home or self-care (01) | LOC: WC 16:10 | PROVIDERS: PCP Nurse Practitioner Family; Visit Provider Physician Assistant | DX: I83.813 Varicose veins of bilateral lower extremities with pain (principal); L97.312 Non-pressure chronic ulcer of right ankle with fat layer exposed | CPT/HCPCS: 93970; G0463 ==

== ENCOUNTER 2024-07-05 15:42 | Outpatient (OUT) | payer OTHER, SELFPAY ==
--- OUTSIDE RECORDS SUMMARY | 2024-07-05 15:49 | XMS_ITS | CCD ---
Author Organization [facility] Care Team Providers Care Home Economics Expert Name Role Phone Slick Parker Unavailable Unavailable Slick Parker Unavailable Unavailable Slick Parker Unavailable Unavailable Salvatore Reveles Unavailable Unavailable Nathan Parkerolas Stephane Unavailable Unavailable Nathan Parkerolas A Unavailable Unavailable Melany Parkers A Unavailable Unavailable Salvatore Reveles Unavailable Unavailable Abdirizak Sr., Salvatore Abad Primary Care Provider Abdirizak Sr.aSlvatore Primary Care Provider ANAHI CHAPMAN Admitting Unavailable ANAHI CHAPMAN Attending Unavailable DEFRANCE, DR ASHLEY Primary Care Unavailable ANAHI CHAPMAN Consulting Unavailable JOYCE ., DR RUELAS Admitting Unavailable JOYCE ., DR RUELAS Attending Unavailable MISC, DR BUTLER Primary Care Unavailable HELGA ., MR CARLSON Consulting Unavailable Wganer IRIZARRY-Rosa THOMAS Primary Care Provide r DANIEL ALEJANDRO Attending Unavailable DANIEL ALEJANDRO Referring Unavailable Abdirizak Sr., Salvatore BURCH Primary Care Provider ROSA EDWARD Attending Unavailable ROSA EDWARD Referring Unavailable ROSA EDWARD Primary Care Unavailable ROSA EDWARD Attending Unavailable ROSA EDWARD Referring Unavailable SCHJAYLYN, ROSA Primary Care Unavailable ABFAVIAN AYA E.F Referring Unavailable ROSA EDWARD Primary Care Unavailable ABFAVIAN AYA Attending Unavailable Medications Current Medications Medication Drug Class(es) Dates Sig (Normalized) Sig (Original) [id number] 200 actuat albuterol 0.09 mg/actuat metered dose inhaler (8 sources) beta2-Adrenergic Agonist Start: 08-20-2022 take 2 [...] 07/16/2021 Active allopurinol 100 mg oral tablet (5 sources) Xanthine Oxidase Inhibitor Start: 01-28-2024 take 2 tablets by mouth in the morning allopurinoL (ZYLOPRIM) 100 mg tablet Take 2 tablets (200 mg total) by mouth in the morning. 180 tablet 1 01/28/2024 Active Start: 03-23-2023 End: 09-04-2023 take 2 tablets by mouth once daily in the morning allopurinoL (ZYLOPRIM) 100 mg tablet take 2 tablets by mouth every morning 180 tablet 1 09/04/2023 Active amLODIPine 10 mg oral tablet (8 sources) Dihydropyridine Calcium Channel Rosibel Start: 01-28-2024 [...] formoterol fumarate 0.0045 mg/actuat metered dose inhaler (4 sources) Corticosteroid, beta2-Adrenergic Agonist Start: 08-06-19 take 2 puff(s) by mouth twice daily SYMBICORT 160-4.5 mcg/actuation inhaler Indications: Dyspnea on exertion , Mild intermittent asthma without complication inhale 2 puffs by mouth twice a day 10.2 g 6 08/05/2022 Active clonazePAM 0.5 mg oral tablet (4 sources) Benzodiazepine clonazePAM (KlonoPIN) 0.5 mg tablet [...] Comment on above: Take 1 tablet by [facility] twice daily. hydrOXYzine pamoate 25 mg oral capsule (2 sources) Antihistamine Start: 06-12-19 take 1 capsule by mouth three times daily as needed hydrOXYzine (VISTARIL) 25 mg capsule Take 1 capsule (25 mg total) by mouth 3 (three) times a day as needed. 06/12/2022 Active inhalational spacing device (AEROCHAMBER MV) spacer (4 sources) Start: 08-16-19 inhalational spacing device (AEROCHAMBER MV) spacer Use with inhaler 1 each 2020 Active Start: 2020 inhalational s pacing device (AEROCHAMBER MV) spacer Use with inhaler 1 each 0 2020 Active lithium carbonate 300 mg oral capsule (4 sources) take 1 capsule by mouth twice daily lithium carbonate 300 mg capsule take 1 capsule by mouth twice a day Active losartan potassium 50 mg oral tablet (8 sources) Angiotensin 2 Receptor Rosibel Start: 01-28-2024 take 1 tablet by mouth in the morning losartan (COZAAR) 50 mg tablet Take 1 tablet (50 mg total) by mouth in the morning. 90 tablet 1 01/28/2024 Active Start: 04-13-2023 take 1 tablet by amber th once daily in the morning losartan (COZAAR) 50 mg tablet take 1 tablet by mouth every morning 90 tablet 1 04/13/2023 Active Comment on above: Take 50 mg by mouth once daily. methotrexate 2.5 mg oral tablet (4 sources) Folate Analog Metabolic Inhibitor take 4 [...] 03/22/2024 Active nystatin 100 unt/mg topical powder (5 sources) Polyene Antifungal Start: 06-12-19 End: 04-11-20 nystatin (MYCOSTATIN) powder Apply 1 Application topically in the morning and 1 Application before bedtime. 15 g 1 04/11/2024 Active OLANZapine 10 mg oral tablet (2 sources) Atypical Antipsychotic take 1 tablet by mouth at bedtime OLANZapine (ZyPREXA) 10 mg tablet take 1 tablet by mouth at bedtime Active omeprazole 40 mg delayed release oral capsule (9 sources) Proton Pump Inhibitor Start: 01-28-20 take [...] capsule by mouth every morning 30 capsule 08/21/2023 Active Comment on above: Take 40 mg by mouth once daily. OXcarbazepine 300 mg oral tablet (2 sources) Anti-epileptic Agent Start: 2 take 1 tablet by mouth in the morning, then take 1 tablet by mouth at bedtime OXcarbazepine (TRILEPTAL) 300 mg tablet Take 1 tablet (300 mg total) by mouth in the morning and 1 tablet (300 mg total) before bedtime. 02/01/2022 Active polyethylene glycol 3350 41324 mg powder for oral solution (4 sources) Osmotic Laxative Start: 2 End: polyethylene glycol 3350 (MIRALAX, GLYCOLAX) 17 gram/dose powder Use as directed for Miralax / Gatorade Bowel Prep Kit 238 g 0 09/16/2021 09/16/2021 Discontinued Start: 08-06-2021 End: 09-13-2021 polyethylene glycol 3350 (FL RALAX, GLYCOLAX) 17 gram/dose powder Use as directed for Miralax / Gatorade Bowel Prep Kit 238 g 0 08/06/2021 09/13/2021 Discontinued Comment on above: Use as directed for Miralax / Gatorade Bowel Prep Kit 60 actuat tiotropium 0.09373 mg/actuat inhalation spray (4 sources) Anticholinergic Start: 023 take 1.25 ug by inhalation once daily tiotropium bromide (SPIRIVA RESPIMAT) 1.25 mcg/actuation mist 2 puffs Inhalation Once a day 01/22/2023 Active traZODone hydrochloride 50 mg oral tablet (2 sources) Serotonin Reuptake Inhibitor Start: 022 take 1 tablet by mouth once daily traZODone (DESYREL) 50 mg tablet Take 1 tablet (50 mg total) by mouth nightly. 02/01/2022 Active ziprasidone 40 mg oral capsule (2 sources) Atypical Antipsychotic Start: 023 take 1 capsule by mouth in the morning, then take 1 capsule by mouth at mealtime ziprasidone (GEODON) 40 mg capsule Take 1 capsule (40 mg total) by mouth in the morning and 1 capsule (40 mg total) in the evening. Take with meals. 06/13/2022 Active Completed/Discontinued Medications Medication Drug Class(es) [...] status; Translations: [Other specified counseling] Episodic Asthma (5 sources) Mild intermittent asthma; Translations: [Mild intermittent asthma, uncomplicated] Onset: 02-16-2023 08-21-2023 Chronic Essential hypertension (5 sources) Essential (primary) hypertension; Translations: [Essential hypertension] Onset: 09-02-2022 02-16-2023 Chronic Gout and other crystal arthropathies (1 source) Gout, unspecified; Translations: [GOUT UNSPECIFIED] Onset: 09-02-2022 Chronic Immunity disorders (3 sources) Immunodeficiency, unspecified; Translations: [Immunodeficiency, unspecified] Onset: 03-03-2024 Chronic Mood disorders (4 sources) Mixed bipolar affective disorder, moderate; Translations: [Bipolar disorder, current episode mixed, moderate] Onset: 07-30-2022 02-16-2023 Chronic Noninfectious gastroenteritis (2 sources) Idiopathic colitis; Translations: [Noninfective gastroenteritis and colitis, unspecified] Episodic Other aftercare (1 source) Other alf (current) drug therapy; Translations: [OTH VARNISH MIXER CURRENT DRUG THERAPY] Onset: 09-02-2022 Episodic Other [...] Chronic Other nutritional; endocrine; and metabolic disorders (5 sources) Body mass index 40+ - severely obese; Translations: [Morbid (severe) obesity due to excess calories] Onset: 02-16-2023 Chronic Other upper respiratory infections (1 source) Acute maxillary sinusitis, unspecified; Translations: [Acute maxillary sinusitis, unspecified] Onset: 01-19-2024 Episodic Residual codes; unclassified (1 source) At risk of apnea; Translations: [Other specified personal risk factors, not elsewhere classified] Episodic Rheumatoid arthritis and related disease (6 sources) Rheumatoid arthritis of multiple joints; Translations: [...] fasting glucose] Onset: 06-12-2023 Episodic Mood disorders (4 sources) Mood disorders Onset: 2022 2022 Mycoses (1 source) Other sites of candidiasis; Translations: [Other sites of candidiasis] Onset: 06-12-2023 Episodic Other non-traumatic joint disorders (2 sources) Pain in unspecified ankle and joints of unspecified foot; Translations: [Pain in unspecified ankle and joints of unspecified foot] Onset: 03-03-2024 Episodic Unclassified (4 sources) Onset: 06-12-2023 Resolved: 01-19-2024 06-12-2023 Results Test Name Value Interpretation Reference Range Facility 29on 06-27-2024 29 Addended by: KYLAH WINN on: 06/27/2024 07:46 AM Modules accepted: Orders [facility] 36on 06-27-2024 36 Printed and will mail to patient [facility] 36 Will refill leflunom maynor since patient is scheduled to meet with us on 07/14/24, but will need CBC, CMP labs (ordered) prior to more refills. The patient has been messaged via [employer] regarding this. [facility] Refillon 06-23-2024 Refill [id number] Cody Basurto 1990 M Date Provider Department Center 06/23/2024 KYLAH DOWLING [facility] R[facility]UM [facility] No family history on file Reason for Visit and Comments: Med Refill [[id number]] [facility] 36on 06-20-2024 36 Parking placard sent to patient via [employer]. [facility] 36 Please advise on jillian sweet's request for disability parking placard and Telemed visit. Thanks [facility] 36on 05-31-2024 36 Referral please [facility] Orders Onlyon 05-31-2024 Orders Only [id number] Cody Basurto 1990 M Date Provider Department Center 05/31/2024 KYLAH DOWLING C [facility]UM [facility] No family history on file [facility] 36on 05-10-2024 36 Update from patient [facility] Orders Onlyon 05-10-2024 Orders Only [id number] Cody Basurto 1990 M Date Provider Department Center 05/10/2024 KYLAH DOWLING R[facility] R[facility] No family history on file [facility] Orders Onlyon 05-05-2024 Orders Only [id number] Cody Basurto 1990 M Date Provider Department Center 05/05/[id number]-HECOHUOKYLAH COLE [facility] R[facility] No family history on file [facility] 36on 05-04-2024 36 (M) Normal [facility] 36 New update from brendon ent on gabapentin [facility] Orders Onlyon 05-04-2024 Orders Only [id number] Surekha Basurtoer 1990 M Date Provider Department Center 05/04/[id number]-TLGMCFLEDDI WINNIEL [facility] No family history on file [facility] 36on 04-27-2024 36 Update from patient regarding Gabapentin. [facility] 36on 04-25-2024 36 Spoke with Patient i s agreeable to medication. Please send to [facility] in [place]. [facility] 36 Update on patient's symptoms. Please advise. [facility] Orders Onlyon 04-25-2024 Orders Only [id number] Sb Cody 1990 M Date Provider Department Center 04/25/[id number]-MMYCCMEEDDI WINNIEL [facility] No family history on file [facility] 36on 03-21-2024 36 Update from patient Normal [facility] Orders Onlyon 03-21-2024 Orders Only [id number] Sb, Cody 1990 M Date Provider Department Center 03/21/[id number]-RTDLMGQEDDI WINNIEL [facility] No family history on file [facility] 36on 03-17-2024 36 Please advise. [facility] 36 Please advise. [facility] Patient Messageon 03-17-2024 Patient Message [id number] Sb Cody 1990 M Date Provider Department Center 03/17/2024 3554-OZ HANSEN UTCF RHEUM UTCF No family history on file [facility] Orders Onlyon 03-14-2024 Orders Only [id number] Cody Basurto 1990 M Date Provider Department Center 03/14/2024 [id number], HISTORICAL RHC RHEUM [facility] No family history on file Normal [facility] Follow-Upon 03-03-2024 Follow-Up [id number] Cody Basurto 1990 M Date Provider Department Center 03/03/2024 3554-JDAECURTA UTCF RHEUM MOCF No family history on file Level of Service:60250 [place] OFFICE/OUTPATIENT ESTABLISHED MOD MDM 30 MIN () Reason for Visit and Comments: Rheumatoid Arthritis [345] - Increased stiffness lasting all day. Joint Swelling [853739] - Right ankle Normal [facility] M. tuberculosis stim IFN-g p antonio (Bld)on 03-03-2024 Mitogen minus Nil Result 9.99 IU/mL Normal [facility] Nil Result 0.01 IU/mL [facility] Comment on above: Result Comment: NOTE Test Performed by: [facility] [address] [place] [address] Hooking Machine Operator: Temi Darden Ph.D.; CLIA# [id number] QuantiFERON-Tb Gold Plus Result Negative Normal Negative [facility] Comment on above: Result Comment: NOTE No [...] Diagnosis of Tuberculosis in Adults and Children [Lewinsohn FAUSTINA et. al. Clin. Infect. Dis. 2017;64(2):111-115]. The reference range for the 'TB1 Ag minus Nil Result' and 'TB2 Ag minus Nil Result' is an Interferon-gamma level <0.35 IU/mL. TB1 Ag minus Nil Result 0.00 IU/mL Normal [facility] TB2 Ag minus Nil Result 0.00 IU/mL [facility] 36on 01-28-2024 36 Left message informi ng patient to call office and schedule a follow up appointment. Normal [facility] 09-11-2023 36 LVM for patient to c all back and reschedule [facility] 3609-10-2023 36 It's okay to resched uled, he forgot to get labs completed and then went to a [facility] location without a hard copy of lab orders. I have mailed the lab orders to the patient to have completed. [facility] 36 Patient has no showe d three out of seven appointments since being established. No showed 10/13/22 w/Ding, 06/30/23 w/Ding, and 09/10/23 w/Aya. Okay to R/S or dismissed? [facility] ANES POSTPROC EVALon 022 ANES POSTPROC EVAL HNO ID: [id number] Author: Jose Gillespie MD Service: Anesthesiology Author Type: Anesthesiologist Type: Anesthesia Postprocedure Evaluation Filed: 09/16/2021 10:50 AM Note Text: POST ANESTHESIA EVALUATION NOTE : 1990 Procedure Summary Date: 09/16/21 Room / Location: [facility] Services Anesthesia Start: 1010 Anesthesia Stop: [...] September 16, 2021 TIME: 10:50 AM CSN: [id number] [facility] ANES PRE-OPon 09-16-2021 ANES PRE-OP HNO ID: [id number] Author: Jose Gillespie MD Service: Anesthesiology Author Type: Anesthesiologist Type: Anesthesia Preprocedure Evaluation Filed: 09/16/2021 9:02 AM Note Text: ANESTHESIOLOGY DAY OF SURGERY NOTE : 1990 Procedure Information Date/Time: 09/16/21 1000 Scheduled providers: Adolfo Matias MD Procedure: COLONOSCOPY SCREENING Location: [facility] Surgical Services Estimated body mass index is [...] Vitals Value Taken Time BP 130/75 09/16/21 0852 Pulse 88 09/16/21 0852 Resp 20 09/16/21 0852 Temp 37.1 ?C (98.8 ?F) 09/16/21 0852 SpO2 97 % 09/16/21 0852 Outpatient Medications as of 09/16/2021 Medication Sig [...] September 16, 2021 TIME: 9:01 AM CSN: [id number] [facility] COLONOSCOPY SCREENINGon 08-24 [facility] HISTORY PHYSICALon HISTORY PHYSICAL HNO ID: [id number] Author: Adolfo Matias MD Service: Gastroenterology Author [...] obesity Colonoscopy with biopsies Discussed with patient/patient retention representative the indications, alternatives, benefits and risks of procedure. Some of the possible risks include bleeding, infection, drug reaction, perforation, missed lesions, cardiopulmonary arrest or even , were also reviewed with patient/patient retention representative. SIGNATURE: Adolfo Matias MD PATIENT NAME: Cody Basurto DATE: September 16, 2021 TIME: 10:01 AM [facility] SURGICAL PATHOLOGYon 022 CASE REPORT [facility] Comment on above: Order Comment: Specimen Type: TISSUE SPE [employer] Ordering Facility: [facility] Address: [address] [place] [address] Result Comment: Surg ica Pathology Report Case: [id number] Authorizing Provider: Adolfo Matias MD Collected: 09/16/2021 10:21 AM Ordering Location: [facility] Received: 09/16/2021 11:58 AM Surgical Services Pathologist: Farrah Serrano MD Specimen: COLON BIOPSY, Random Performed By: #### S #### [facility] CLIA [id number] [address] [place], [place] [address] OF [place] FINAL DIAGNOSIS [facility] Comment on above: Order Comment: Specimen Type: TISSUE SPE CIMEN Ordering Facility: [facility] Address: [address] [place] [address] Result Comment: Addi herman, random, biopsy: - Colonic mucosa with patchy mild hyperplastic epithelial changes. Performed By: #### S #### [facility] CLIA [id number] [address] [place] [address] FINAL PERFORMING LAB Normal [facility] Comment on above: Order Comment: Specimen Type: TISSUE [facility] Ordering Facility: [facility] Address: [address] [place] [address] Result Comment: Diag nostic interpretation performed at [facility], [address] [place] [address] CLIA# [id number] Sound Designer: Richie Duran M.D. Performed By: #### S #### [facility] CLIA [id number] [address] [place] [address] GROSS DESCRIPTION [facility] Comment on above: Order Comment: Specimen Type: TISSUE [facility] Ordering Facility: [facility] Address: [address] [place] [address] Result Comment: Addi HERMAN BIOPSY. Received in formalin are multiple pieces of jacinto, soft tissue aggregating to 2.0 x 0.6 x 0.2 cm. Totally submitted in two cassettes. CL September 16, 2021 3:18 PM Gross examination performed at [facility], [address] [place] [address] Performed By: #### S #### [facility] CLIA [id number] [address] [place] [address] OF [place] CNPNatalia 09-13-2021 CNPN Telephone ([facility]) CODY BASURTO ([id number]) 1990 M Date Time Provider Department 09/13/21 CARMELO HERNÁNDEZ [facility] During your visit today, we recorded the following information about you: HARIKA Hernandez 09/13/2021 2:07 PM Signed Which Attempt: X Call Status: Completed X Left Voice Message Surgery Location: [facility] Arrival Time:0845 Note: Left detailed message on [...] Encounter Status:Closed by CARMELO HERNÁNDEZ on 09/13/21 [facility] 08-07-2021 [facility] Telephone ([facility]) CODY BASURTO ([id number]) 1990 M Date Time Provider Department 08/07/21 MANUEL RODRÍGUEZ [facility] [employer] During your visit today, we recorded the following information about you: Berenice Mcnair Methods Analyst 08/07/2021 12:02 PM Signed Left message on [...] Cody, rescheduled his colonoscopy to 09/16/[address] [place] [address] Matias. Brenna Oates Ma Allergies [...] Status:Closed by MANUEL RODRÍGUEZ on 08/07/21 Normal [facility] Coding Summary.on 05-13-2017 Coding Summary. CODING DATE: 017 FINAL [facility] STATUS: Home (Routine DC) PAYOR: Commercial [...] PROC APC STAT DESCRIPTION DOCTOR NAME DATE 61440 5073 J1 Excision, tumor, soft Slick Parker DPM A 05/06/2017 tissue of foot or toe, subfascial (eg, intramuscular); 1.5 cm or greater LT Left side (used to identify procedures performed on the left side of the body) [address] Anesthesia for Keith Nathan RIDERolas A 05/06/2017 procedures on nerves, muscles, tendons, and fascia of lower leg, ankle, and foot; not otherwise specified NOTE: The code number assigned matches the documented diagnosis and / or procedure in the patient's chart. However, the narrative phrase printed from the coding software may appear abbreviated, or result in slightly different terminology. Coded By: Valeria Ramirez Date Saved: 05/13/2017 02:15 pm [facility] XR Ankle 2 Views Lefton 04-24 XR [...] Garcia MD Transcribed by: CHLOE Technologist: FAUSTINA [facility] Main OR Intraoperative Recor don 05-07-2017 Main OR Intraoperative Record IntraOp Document Type FT Summary Primary Physician: Slick Parker DPM Finalized Date/Time: 05/07/17 10:09:19 Pt. Name: CODY BASURTO/Sex: 1990 Male Med Rec #: [id number] Physician: Slick Parker DPM Financial #: [id number] Pt. Type: A Room/Bed: [place] [address] Admit/Disch: 05/06/17 06:52:00 - 05/06/17 13:15:00 Institution: Case Times FT Entry 1 Patient Times In Room 05/06/17 09:23:00 Out Room 05/06/17 11:19:00 Procedure Times Start 05/06/17 09:46:00 Stop 05/06/17 11:04:00 Anesthesia Times Start 05/06/17 09:23:00 Stop 05/06/17 11:19:00 Last Modified By: Thalia Queen CST 05/06/17 11:23:16 General Comments: 05/07/2017 Chart opened to review and send charges Grzegorz mullins Case Attendance FT Entry 1 Entry 2 Entry 3 Case Attendee Keith PENNINGTON Lindsay Parker DPM, Slick Matos CIGARETTE EXAMINER/SABecky Role Performed Anesthesiologist Surgeon - Primary CIGARETTE EXAMINER/SA Helicopter Pilot Time In 05/06/17 09:23:00 05/06/17 09:25:00 05/06/17 09:23:00 Time Out 05/06/17 11:19:00 05/06/17 11:19:00 05/06/17 11:19:00 Procedure FOOT EXCISION OF SOFT FOOT EXCISION OF SOFT FOOT EXCISION OF SOFT TISSUE MASS(Left) TISSUE MASS(Left) TISSUE MASS(Left) Comments DR NIETO SUPERVISING - out of room from [id number] dr nieto relief Last Modified By: Chrissy RN, Gerardo Lowe RN, Gerardo Lowe RN, Gerardo Recio 05/06/17 11:23:19 05/06/17 11:23:19 05/06/17 11:23:19 Entry 4 Entry 5 Entry 6 Case Attendee Chrissy AVILES, Gerardo Zamora RN, Ella Pace CST Role Performed Medical Radiation Dosimetrist - Primary Medical Radiation Dosimetrist - Primary Scrub - Primary Time In 05/06/17 09:23:00 05/06/17 09:23:00 05/06/17 09:23:00 Time Out 05/06/17 11:19:00 05/06/17 11:19:00 05/06/17 11:19:00 Procedure FOOT EXCISION OF SOFT FOOT EXCISION OF SOFT FOOT EXCISION OF SOFT TISSUE MASS(Left) TISSUE MASS(Left) TISSUE MASS(Left) Comments out of room from [id number] Last Modified By: Chrissy AVILES, Gerardo Lowe RN, Gerardo Lwoe RN, Gerardo Recio 05/06/17 11:23:19 05/06/17 11:23:19 05/06/17 11:23:19 Entry 7 Case Attendee Jose RN, CNOR, CRNFA, ONCSheryl Role Performed Medical Radiation Dosimetrist - Relief Time In 05/06/17 09:23:00 Time [...] Lee, Given Participants Slick Parker DPM, Sharp CIGARETTE EXAMINER/SA, Chrissy Pena RN, Noah Krishnamurthy RN, Edison Frost CST, Stephanie Time Out [...] Head Large Press Points Checked Yes By Chrissy AVILES, Keith Krishnamurthy Carly C, Coy RN, Emily A Outcomes Met? Yes [...] George Coy RN, Emily A, George CST, Ella MULLINS, Ella Outcomes Met? Yes Yes Last Modified [...] RN Patient Status Stable Skin. Condition Intact, [place], Warm, and Description unchanged from Dry, Other/See Comments previously Airway Maintenance Oxygen in Use? Yes Airway Device Simple Mask Flow Rate 8 L/min Outcomes Met? Yes Last Modified By: Emily Zamora RN 05/06/17 09:51:01 Post-Care Text: The patient is free from signs and symptoms of injury related to transfer/transport General Comments: report given to cornice makerrn. Clint wasserman rn Dressing/Packing FT Pre-Care Text: [...] safely administered during the perioperative period For [place] please see scanned medication reconcilliation form for medications used at the field during the procedure. Tourniquet FT Pre-Care Text: Implements protective measures to prevent skin/tissue injury due to mechanical sources Entry 1 Tourniquet Type TOURNIQUET CUFF [employer] Setting 350 mmHg BLUE 44 X 4 [[id number]][F] Equipment Number D Placement Left Upper Thigh Cuff Size 44 Padding Under Cuff Yes Applied Applied By Carlo MULLINS/Becky JONES Skin Assessment Unremarkable Before Inflation Skin [...] BLANKET MISTRAL AIR Quantity 1 Aid TORSO [[id number]][F] Fluid/Stamps Unit Mistral warming system Setting high/43 Body Site Upper anterior torso Last Modified By: Emily Zamora RN 05/06/17 09:51:29 Case Comments Finalized By: Thalia Queen CST Document Signatures Signed By: Gerardo Lowe RN 05/06/17 11:23 Thalia Queen CST 05/07/17 10:09 Normal [facility] Progress Note-Physicianon Progress Note-Physician Patient: CODY BASURTO Age: 26 years Sex: Male : 1990 Associated Diagnoses: None Author: Julio Nieto MD Preoperative Information Anesthesia history: Patient History: [...] Problem list: All ProblemsHypertension / SNOMED CT 4151269613 / ConfirmedSoft tissue mass / SNOMED CT 7584142353 / Confirmedleft achillesAsthma / SNOMED CT 668514172 / Confirmed Histories Past Medical History: No active or resolved past medical history items have been selected or recorded. Procedure history: No active procedure history items have been selected or recorded. Social History Social & Psychosocial EqglnaNzdvnar37/06/2017 Type: Oral Comment: Patient chews tobacco every [...] Floyd M.D. on April 29, 2017 10:06 [facility] info: [id number], [facility], Outpatient, 04/29/2017 - 04/29/2017 ECG interpretation: SINUS RHYTHM. Plan [employer] Anesthesiologists (ASA) physical status classification: [...] heart and lungs, allergic reactions, and .. [facility] Comment on above: Result Comment: Electronically Signed By : Laci GERBER, Julio\.br\Date and Time Signed: 05/07/17 15:35 EST Inpatient Patient Summaryon 05-06-2017 Thyroid stimulating hormone [facility]TSH) [facility] INFORMATION Name: CODY BASURTO PHYSICIANS Admitting Physician: Slick Parker DPM AAttenjatin Physician: Slick Parker DPM PCP: Salvatore Reveles DO PDischarge Diagnosis: Comment: PATIENT EDUCATION INFORMATIONInstructions:Keith Jaramillo Post Operative Instructions (Custom) (Custom)Medication Leaflets:Follow up:MEDICATION LISTComment: [facility] Main OR PACU I Recordon 04-24 Main OR PACU I Record PACU Phase I Document Type FT Summary Primary Physician: Slick Parker DPM Finalized Date/Time: 05/06/17 12:00:39 Pt. Name: CODY BASURTO Ana/Sex: 1990 Male Med Rec #: [id number] Physician: Slick Parker DPM Financial #: [id number] Pt. Type: A Room/Bed: [place] [address] Admit/Disch: 05/06/17 06:52:46 - Institution: Case Times [...] Ellis RN 05/06/17 12:00 Normal [facility] Main OR Preoperative Recordo n 05-06-2017 Cholesterol PreOp Document Type FT Summary Primary Physician: Slick Parker DPM Finalized Date/Time: 05/06/17 09:51:55 Pt. Name: CODY BASURTO/Sex: 1990 Male Med Rec #: [id number] Physician: Slick Parker DPM Financial #: [id number] Pt. Type: A Room/Bed: [place] [address] Admit/Disch: 05/06/17 06:52:46 - Institution: Case Times [...] By: Emily Zamora RN 05/06/17 09:51 Normal [facility] Operative Reporton 7 Operative Report Date of Surgery: 05/06/2017SURGEON: Joe PatelP.MToyaPREOPERATIVE DIAGNOSIS: Left posterior medial Achilles soft tissue [...] number if any problems arise, otherwise return [facility] week for his first postoperative visit.Slick Parker D.P.M.aekDictated: 05/06/2017 #[id number]: 05/06/2017 #[id number]: Slick aPrker D.P.M. [facility] Comment on above: Result Comment: Electronically Signed By : Slick Parker DPM\.br\Date and Time Signed: 05/06/17 12:33 EST Patient Education - Texton 1 07-07-2016 Patient Education - Text Patient Education Materials Follows:[place], [place] DPM, FACFASPOST OPERATIVE INSTRUCTIONSKeep bandage [...] questions, feel free to call the doctor at:[phone] or [phone] Parker paged. _ Patient signature Date Dr. 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 Postoperative Diagnosis: abida. Performed by: Slick Parker DPM. Findings: soft tissue mass 3cmx 1.5cm posterior medial achilles insertion point. Specimens Removed: see findings. Estimated Blood Loss: 5 ml. Complications: None. Anesthesia type: General. [facility] Comment on above: Result Comment: Electronically Signed By : Slick Parker DPM\.br\Date and Time Signed: 05/06/17 11:13 EST Coding Summary.on 04-30-2017 Coding Summary. CODING DATE: 017 [facility] STATUS: Home (Routine DC) PAYOR: Commercial Insurance [...] Gifty Muse Date Saved: 04/30/2017 03:25 pm [facility] CBC w/Indiceson 04-29-2017 Erythrocyte distribution width Auto Ratio (RBC) 14.6 % High 10.9-14.2 [facility] Comment on above: Performed By: #### [id number] ####[address] [address] Erythrocytes (RBC) 5.3 E12/L Normal 4.3-5.9 [facility] Comment on above: Performed By: #### [id number] ####[place] [address] Hematocrit (HCT) 45.1 % Normal 37.7-49.0 [facility] Comment on above: Performed By: #### [id number] ####[place] [address] Hemoglobin mass conc (Bld) 15.3 g/dL Normal 13.5-17.5 [facility] Comment on above: Performed By: #### [id number] ####[place] [address] MCH 29.0 pg Normal 27.0-34.0 [facility] Comment on above: Performed By: #### [id number] ####[address] [address] MCHC mass conc (RBC) 33.9 g/dL Normal 31.4-39.3 [facility] Comment on above: Performed By: #### [id number] ####[address] [address] MCV 85.7 fL Normal 80.0-100.0 [facility] Comment on above: Performed By: #### [id number] ####[address] [address] Platelet mean volume (PMV) 10.1 fL Normal 6.4-10.8 [facility] Comment on above: Performed By: #### [id number] ####[address] [address] Platelets 175.0 E9/L Normal 150.0-500. 0 [facility] Comment on above: Performed By: #### [id number] ####[facility] [address] [place] [address] WBC (Leukocytes) 6.5 E9/L Normal 4.0-11.0 [facility] Comment on above: Performed By: #### [id number] ####[facility] [address] [place] [address] XR Chest 2 Viewson 7 XR Chest [...] M.D. Transcribed by: pedro Technologist: SHARIFA Normal [facility] Vital Signs Date Time Vital Sign Value Performing Clinician Misael jacobs 09-16-2021 11:00-0400 Diastolic blood pressure 63 mm[Hg] Adolfo Matias MD Work Phone: [facility] 09-16-2021 11:00-0400 SaO2% (BldA) [Mass fraction] 96 % Adolfo Matias MD Work Phone: [facility] 09-16-2021 11:00-0400 Systolic blood pressure 123 mm[Hg] Adolfo Matias MD Work Phone: [facility] 09-16-2021 10:35-0400 Body temperature 98.1 [degF] Adolfo Matias MD Work Phone: [facility] 09-16-2021 10:35-0400 Heart rate 99 /min Adolfo Matias MD Work Phone: [facility] 09-16-2021 10:35-0400 Respiratory rate 22 /min Adolfo Matias MD Work Phone: [facility] 09-16-2021 08:49-0400 Body height 193 cm Adolfo Matias MD Work Phone: [facility] 09-16-2021 08:49-0400 Body weight 199.58 kg Adolfo Matias MD Work Phone: [facility] Encounters Encounter Date Encounter Type Care Provider Facility Start: 04-11-2024 End: 04-11-2024 Refill Rosa Edward BRIM PLATER-DIRECTOR OF PHYSICAL THERAPY Work Phone: [facility] Start: 03-17-2024 End: 03-17-2024 Orders Only Rosa Edward BRIM PLATER-DIRECTOR OF PHYSICAL THERAPY [facility] Start: 03-03-2024 End: 03-03-2024 [facility] Start: 01-19-2024 End: 01-19-2024 ambulatory [facility] Start: 12-28-2023 ambulatory Mani Davis MD Work Phone: Gastroenterology Comment on above: Thalia Turner Start: 11-03-2023 End: 11-03-2023 ambulatory DANIEL ALEJANDRO Not Available Start: 11-03-2023 End: 11-03-2023 ambulatory DANIEL ALEJANDRO Not Available Start: 09-04-2023 End: 09-04-2023 Refill Rosa Edward BRIM PLATER-DIRECTOR OF PHYSICAL THERAPY Work Phone: [facility] Start: 08-21-2023 Refill Rosa shay BRIM PLATER-DIRECTOR OF PHYSICAL THERAPY [facility] Comment on above: Mild intermittent as thma without complication Start: 06-12-2023 End: 06-12-2023 ambulatory [facility] Start: 09-01-2022 End: 09-01-2022 ambulatory ANAHI CHAPMAN Facility:[facility] Start: 05-15-2022 End: 05-15-[address] JESSENIA COOK . Facility: Start: 01-26-2022 Refill Mani Davis MD Work Phone: Gastroenterology Comment on above: Refill Request Start: 09-16-2021 End: 09-16-2021 Orders Only Adolfo Matias MD Work Phone: Gastroenterology Comment on above: Morbid obesity (HCC) (Primary Dx); Snoring; At risk for obstructive sleep apnea Idiopathic colitis [ K52.9] Start: 09-13-2021 Telephone encounter [facility] Comment on above: Appointment Refill Request Start: 05-06-2017 End: 05-06-2017 Ambulatory Slick Parker Facility:[facility] Start: 04-29-2017 End: 04-30-2017 Ambulatory Slick Parker Facility:[facility] Procedures Date Procedure Procedure Detail Performing Clinician Start: 2022 Adult depression screening assessment Rosa Edward BRIM PLATER-DIRECTOR OF PHYSICAL THERAPY Work Phone: Start: 09-16-2021 Colon ca scrn not hi rsk ind Mani Davis MD Work Phone: Plan of Treatment Date Care Activity Detail Author Start: 01-18-2025 Adult BMI Screening Adult BMI Screening [facility] Start: 01-18-2025 Tobacco Screening Tobacco Screening [facility] Start: 06-12-2024 Adult BMI Screening Adult BMI Screening [facility] Start: 06-12-2024 Tobacco Screening Tobacco Screening [facility] Start: 01-24-2024 Influenza vaccination [facility] Start: 08-16-2023 Depression Screening Depression Screening [facility] Start: 01-23-2023 Covid-19 Vaccine ( season) Covid-19 Vaccine () [facility] Start: 01-23-2023 Influenza vaccination Influenza Vaccine [facility] Start: 01-23-2022 Influenza vaccination [facility] Start: 09-16-2021 End: 11-16-2021 GLIADIN (DEAMINATED) ABS GLIADIN (DEAMINATED) ABS Lab Routine Chronic diarrhea Expected: 09/16/2021, Expires: 11/16/[address] [facility] Work Phone: Comment on above: Expected: 09/16/2021, Expires: 2 Start: 09-16-2021 End: 11-16-2021 IGA BLD IGA BLD Lab Routine Chronic diarrhea Expected: 09/16/2021, Expires: 11/16/[address] [facility] Work Phone: Comment on above: Expected: 09/16/2021, Expires: 2 Start: 09-16-2021 End: 11-16-2021 Tissue transglutaminase IgA Ab [Units/volume] in Serum TRANSGLUTAMINASE IGA Lab Routine Chronic diarrhea Expected: 09/16/2021, Expires: 11/16/[address] [facility] Work Phone: Comment on above: Expected: 09/16/2021, Expires: 2 Start: 08-14-2010 DTaP,Tdap and Td Vaccines (1 - Tdap) DTaP,Tdap and Td Vaccines (1 - Tdap) [facility] Start: 08-14-2010 Hepatitis B Vaccine (1 of 3 - 19+ 3-dose series) Hepatitis B Vaccine (1 of 3 - 19+ 3-dose series) [facility] Start: 08-14-2010 Urine microalbumin profile [facility] Start: 08-14-2009 Anxiety Screening Anxiety Screening [facility] Start: 08-14-2009 Depression Screening Depression Screening [facility] Start: 08-14-2009 HEPATITIS C SCREENING HEPATITIS C SCREENING [facility] Start: 08-14-2009 Hepatitis C screening Hepatitis C Screening [facility] Start: 08-14-2009 HIV SCREENING HIV SCREENING [facility] Start: 08-14-2009 HIV screening HIV Screening [facility] Start: 2003 Adult depression screening assessment DEPRESSION SCREENING [facility] Start: 08-14-1996 COVID-19 VACCINE (1) COVID-19 VACCINE (1) [facility] Start: 02-15-1992 COVID-19 VACCINE (#1) COVID-19 VACCINE (#1) [facility] Start: 1990 HEPATITIS B (1 of 3 - 3-dose series) HEPATITIS B (1 of 3 - 3-dose series) [facility] Start: 1990 Tobacco Counseling Tobacco Counseling [facility] SURGICAL PATHOLOGY [facility] Work Phone: Comment on above: Release Upon Ordering for 1 Occurrences starting 09/16/2021, 1 completed [facility] Immunizations Immunization Date Immunization Notes Care Provider Reji gunderson 02-06-2004 measles, mumps and rubella virus vaccine Rosa Edward BRIM PLATER-DIRECTOR OF PHYSICAL THERAPY Work Phone: [facility] Payers Date Payer Category Payer Medicaid [employer] [place] [id number] 2019-Present [phone] [place] [address] Medicaid [id number] 2019 Medicaid [id number] 2019 Medicaid [facility] MEDICAID [id number] 2019 Unknown [facility] E [facility] [id number] 2019-Present [phone] [address] [address] [place] [address] [id number] 2017 Private Health Insurance [id number] 2017 Private Health Insurance 1992 Unknown [id number] 1990 Unknown [id number] 1990 Unknown [id number] 1990 Unknown [id number] 1990 Unknown [id number] 1990 Unknown [id number] 1990 Unknown [id number] 1959 Unknown [id number] Social History Date Type Detail [facility] Start: 1990 Sex Assigned At Male [facility] Start: 09-06-2021 End: 09-16-2021 Exposure to SARS-CoV-2 (event) Not sure [facility] Start: 09-16-2021 End: 06-17-2022 Tobacco smoking status [facility] Never smoked tobacco [facility] Work Phone: Start: 09-16-2021 End: 06-17-2022 Tobacco use and exposure User of smokeless tobacco [facility] Work Phone: History of tobacco use Snuff User [facility] Work Phone: Start: 09-16-2021 Alcohol intake Ex-drinker (finding) [facility] History of tobacco use Chews Tobacco [facility] Start: 06-12-2023 End: 01-19-2024 Alcohol intake Lifetime non-drinker (finding) [facility] Start: 02-28-2022 End: 06-10-2023 History of Social function [facility] Start: 02-28-2022 End: 06-10-2023 Social connection and isolation panel [facility] Do you belong to any clubs or organizations such as gnosticist groups, unions, fraternal or athletic groups, or school groups? No [facility] Are you now , , , , never or living with a partner? Living with partner [facility] How often to you hav e a drink containing alcohol? Monthly or less [facility] How many standard dr inks containing alcohol do you have on a typical day? 1 or [address] [facility] How often do you hav e 6 or more drinks on 1 occasion? Less than monthly [facility] How hard is it for y ou to pay for the very basics like food, housing, medical care, and heating Not hard at all [facility] Do you feel stress - tense, restless, nervous, or anxious, or unable to sleep at night because your mind is troubled all the time - these days [OSQ] Only a little [facility] Start: 11-07-2019 Education [address] [facility] Start: 06-04-2020 Gender identity Identifies as male gender (finding) [facility] Start: 06-04-2020 Sexual orientation Heterosexual (finding) [facility] Start: 12-28-2014 Sex Male (finding) [facility] Clinical Notes 08-06-2021 to 03-03-2024 Telephone Encounter [...] on file Intimate Partner Violence: Unknown (07/16/2023) [place] Safety & Environment Fear of Current or [...] 1 tablet by (more content not included)... [facility] 12-28-2023 Telephone encounter Note Called pt and asked that he call the office and schedule a Virtual appointment with Dr. Davis tomorrow. Last office visit: 10/06/21. Office number left. Cynthia Alexander RN December 28, 2023 11:31 AM [facility] 12-28-2023 Miscellaneous Notes Called pt and asked that he call the office and schedule a Virtual appointment with Dr. Davis tomorrow. Last office visit: 10/06/21. Office number left. Cynthia Alexander RN December 28, 2023 11:31 AM documented in this encounter [facility] 08-21-2023 Miscellaneous Notes Bill Arana Aid requesting refill of Omeprazole documented in this encounter [facility] 08-21-2023 Telephone encounter Note Bill Arana Aid [facility] 01-28-2022 Miscellaneous Notes Requested Prescriptions Pending Prescriptions Disp Refills dicyclomine (BENTYL) 20 mg tablet 200 tablet 5 Sig: Take 1 tablet by mouth twice daily. Last Visit: 08/06/21 Last Lab: 09/16/21 Cynthia Alexander RN January 28, 2022 9:36 AM documented in this encounter [facility] 09-16-2021 History and physical note COMPREHENSIVE DAY OF SURGERY SURGICAL SERVICES H&P SERVICE DATE: 09/16/2021 SERVICE TIME: 10:01 AM PRIMARY CARE PHYSICIAN: Salvatroe Reveles Sr, MD Subjective CHIEF COMPLAINT: Chronic [...] obesity Colonoscopy with biopsies Discussed with patient/patient retention representative the indications, alternatives, benefits and risks of procedure. Some of the possible risks include bleeding, infection, drug reaction, perforation, missed lesions, cardiopulmonary arrest or even , were also reviewed with patient/patient retention representative. SIGNATURE: Adolfo Matias MD PATIENT NAME: Cody Basurto DATE: September 16, 2021 TIME: 10:01 AM documented in this encounter [facility] 09-16-2021 Miscellaneous Notes Pending Prescriptions Disp [...] 2021 9:36 AM documented in this encounter [facility] 09-13-2021 Miscellaneous Notes Which Attempt: X 1st 2nd 3rd Call Status: Completed X Left Voice Message Surgery Location: [place] Arrival Time:0845 Note: Left detailed message on voice mail. documented in this encounter [facility] 08-06-2021 Note HNO ID: [id number] Author: Mani Davis MD Service: ? Author [...] COVID, and schedule colonoscopy. Mani Davis MD [facility] Evaluation note Diagnosis Morbid obesity (HCC)- Primary Morbid obesity Snoring Other dyspnea and respiratory abnormality At risk for obstructive sleep apnea [facility] Diagnosis Chronic diarrhea- Primary Diarrhea Idiopathic colitis Other and unspecified noninfectious gastroenteritis and colitis Morbid obesity with BMI of 50.0-59.9, adult (HCC) Morbid obesity Encounter for pre-bariatric surgery counseling and education Other specified counseling [facility] Diagnosis Mild intermittent asthma without complication [facility] filedocumented in this encounter [facility]Not on filedocumented in this encounter [facility]ructionsNot on filedocumented in this encounter [facility]ructionsNot on filedocumented in this encounter [facility] SystemReason for visit Narrative* Outpatient Procedure (Routine) - Closed Specialty Diagnoses / Procedures Referred By Goran t Referred To Contact [facility] Diagnoses Idiopathic colitis Procedures COLONOSCOPY SCREENING COLONOSCOPY FLX DX W/COLLJ SPEC WHEN PFRMD Mani Davis MD [address] [place] [address] [facility] [address] [place] [id number] Referral ID Status Reason Start Date Expiration Date V isits Requested Visits Authorized [id number] Closed Auto-Generate d Referral 08/06/2021 08/06/2022 1 1 [facility] Summary Purpose Family History No Family History Records FoundNo Family History Records FoundNo Family History Records FoundNo Family History Records FoundNo Family History Records FoundNo Family History Records FoundNo Family History Records FoundNo Family History Records Found Advance Directives No Advanced Directives Records FoundDocuments on File Type Date Recorded 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 60-74 MINUTES Adolfo Matias MD [address] [place] [address] Estefany Hewitt MD [address] [facility] [address] [place] [address] Referral ID Status Reason Start Date Expiration Date Visits Requested Visits Authorized [id number] Authorized PCP Requested Referral 09/16/2021 09/16/2022 1 1 Specialty Diagnoses / Procedures Referred By Contac t Referred To Contact General Surgery Diagnoses Morbid obesity with BMI of 50.0-59.9, adult (HCC) Encounter for pre-bariatric surgery counseling and education Procedures CONSULT TO GENERAL SURGERY OFFICE/OUTPATIENT [facility] 60-74 MINUTES Adolfo Matias MD [address] [place] [address] Richie Wick MD [address] [facility] [address] [place] [address] Referral ID Status Reason Start Date Expiration Date Visits Requested Visits Authorized [id number] Authorized PCP Requested Referral 09/16/2021 09/16/2022 1 1 Specialty Diagnoses / Procedures Referred By Contac t Referred To Contact [facility] Diagnoses Idiopathic colitis Procedures COLONOSCOPY SCREENING COLONOSCOPY FLX DX W/COLLJ SPEC WHEN PFRMMani Esparza MD [address] [place] [address] [facility] [address] [place] [id number] Referral ID Status Reason Start Date Expiration Date V isits Requested Visits Authorized [id number] Closed Auto-Generate d Referral 08/06/2021 08/06/2022 1 1 Additional Source Comments (unrecognized sect ion and content) No Status Records FoundNo Status Records FoundNo Status Records FoundNo Status Records FoundNo Status Records FoundNo Status Records FoundNo Status Records FoundNo Status Records Found INFORMATION SOURCE (unrecogn ized section and content) DATE CREATED AUTHOR 11/17/2017 [facility] DATE CREATED AUTHOR AUTHOR'S ORGANIZ ATION 08/16/2021 [facility] DATE CREATED AUTHOR AUTHOR'S ORGANIZ ATION 09/20/2021 [facility] DATE CREATED AUTHOR AUTHOR'S ORGANIZ ATION 09/02/2022 [facility] DATE CREATED AUTHOR AUTHOR'S ORGANIZ ATION 11/08/2023 [facility] EPIC DATE CREATED AUTHOR AUTHOR'S ORGANIZ ATION 01/21/2024 [facility] DATE CREATED AUTHOR AUTHOR'S ORGANIZ ATION 03/08/2024 [facility] [place] DATE CREATED AUTHOR AUTHOR'S ORGANIZ ATION 06/28/2024 [facility] Source Comments (unrecognize d section and content) In the event this informatio n is protected by the Federal Confidentiality of Alcohol and Drug Abuse Patient Records regulations: The Federal rules restrict any use of the information to criminally investigate or prosecute any alcohol or drug abuse patient.[facility] Hospital[facility] the event this information is protected by the Federal Confidentiality of Alcohol and Drug Abuse Patient Records regulations: The Federal rules restrict any use of the information to criminally investigate or prosecute any alcohol or drug abuse patient.[facility] Hospital[facility] the event this information is protected by the Federal Confidentiality of Alcohol and Drug Abuse Patient Records regulations: The Federal rules restrict any use of the information to criminally investigate or prosecute any alcohol or drug abuse patient.[facility] Hospital[facility] the event this information is protected by the Federal Confidentiality of Alcohol and Drug Abuse Patient Records regulations: The Federal rules restrict any use of the information to criminally investigate or prosecute any alcohol or drug abuse patient.[facility] HospitalIn the event this information is protected by the Federal Confidentiality of Alcohol and Drug Abuse Patient Records regulations: The Federal rules restrict any use of the information to criminally investigate or prosecute any alcohol or drug abuse patient.[facility] HospitalIn the event this information is protected by the Federal Confidentiality of Alcohol and Drug Abuse Patient Records regulations: The Federal rules restrict any use of the information to criminally investigate or prosecute any alcohol or drug abuse patient.[facility] Reason for Visit (unrecogniz ed section and content) Reason Comments Appointment Reason Onset Date Comments Refill Request 09/13/2021 Reason Onset Date Comments Refill Request 01/26/2022 Reason Comments Med Refill Reason Onset Date Comments Med Refill 04/11/2024 Care Teams (unrecognized sec tion and content) Home Economics Expert Relationship Specialty Start Date End Date Salvatore Reveles Sr. [address] [place] [address] PCP - General Family Practice 10/24/17 Home Economics Expert Relationship Specialty Start Date End Date Salvatore Reveles Sr. [address] [place] [address] PCP - General Family Practice 10/24/17 Home Economics Expert Relationship Specialty Start Date End Date Salvatore Reveles Sr. [address] [place] [address] PCP - General Family Practice 10/24/17 Home Economics Expert Relationship Specialty Start Date End Date Salvatore Reveles Sr. [address] [place] [address] PCP - General Family Practice 10/24/17 Home Economics Expert Relationship Specialty Start Date End Date Salvatore Reveles Sr. [address] [place] [address] PCP - General Family Practice 10/24/17 Home Economics Expert Relationship Specialty Start Date End Date Rosa Edward, JUAN C-DIRECTOR OF PHYSICAL THERAPY [address] [place] [address] PCP - General Family Medicine 11/29/19 Home Economics Expert Relationship Specialty Start Date End Date Salvatore Reveles Sr., PCP - General Family Medicine 10/24/17 Home Economics Expert Relationship Specialty Start Date End Date Rosa Edward APRN-CNP [address] [place] [address] PCP - General Family Medicine 11/29/19 Home Economics Expert Relationship Specialty Start Date End Date Rosa Edward APRN-CNP [address] [place] [address] PCP - General Family Medicine 11/29/19 Home Economics Expert Relationship Specialty Start Date End Date Rosa Edward APRN-CNP [address] [place] [address] PCP - General Family Medicine 11/29/19 FOR RECORDS PERTAINING TO PATIENTS WHO [...] BE BASED ON THE PRIMARY CLINICAL RECORDS. [email or web address] provides no warranty or guarantee of the accuracy or completeness of information in this document.
== END 2024-07-05 15:43 | disposition home or self-care (01) ==
LOC: WC 15:42
PROVIDERS: PCP Nurse Practitioner Family; Visit Provider Physician Assistant
DX: I87.311 Chronic venous hypertension (idiopathic) with ulcer of right lower extremity (principal); L97.312 Non-pressure chronic ulcer of right ankle with fat layer exposed
CPT/HCPCS: G0463